=== PATIENT | female | born 1960 | race Two or more races ===

== ENCOUNTER → 2016-11-15 | Outpatient (CLI) | payer BC ==
--- NOTE | 2016-11-15 15:05 | RADRPT ---
PROCEDURE: XR Knees. CLINICAL INDICATION: Knee pain TECHNIQUE: Three views of the bilateral knees are available for review. COMPARISON: None available FINDINGS: Right knee: There is severe narrowing of the medial and lateral femorotibial compartments noting glez bchondral sclerosis and marginal osteophyte formation. Moderate to severe narrowing is seen at the patellofemoral compartment. The osseous structures appear demineralized. Small right knee joint eff usion. Left knee: Moderate narrowing is seen at the medial and lateral femorotibial compartments and mild n arrowing at the patellofemoral compartment noting subchondral sclerosis and marginal osteophyte form ation. A moderate sized joint effusion is present. There is mild right lateral patellar tilt/subluxation. The left patella is located. IMPRESSION: 1. Tricompartmental right knee arthrosis noting severe narrowing of the medial and lateral femoroti bial compartments. 2. Tricompartmental left knee arthrosis most pronounced at the medial and lateral femorotibial comp artments with moderate narrowing. 3. Decreased bone mineral density without radiographic evidence for fracture. 4. Bilateral knee joint effusions. RPTAT: HH .Price Szymanski MD, Date Time Electronically viewed and signed by .Price Szymanski MD, MD on 11/15/2016 15:05 .d/
--- NOTE | 2016-11-15 18:05 | RADRPT ---
PROCEDURE: XR Pelvis. CLINICAL INDICATION: Pelvic pain. TECHNIQUE: Single AP view of the pelvis. COMPARISON: No prior studies are available for comparison. FINDINGS: There is no fracture or dislocation. There is no lytic or blastic lesion. There are osteophytes arising from the joint margins. The sacroiliac joints are grossly unremarkable. There is no radiopaque foreign body. IMPRESSION: 1. Mild degenerative changes of the hips. 2. Otherwise unremarkable frontal view of the pelvis. RPTAT: QQ .Obed Espinoza MD, MD Date Time Electronically viewed and signed by .Obed Espinoza MD, MD on 11/15/2016 18:05 .R/
--- NOTE | 2016-11-28 06:29 | HKNOTE ---
DATE OF SERVICE: 11/15/2016 REFERRING PHYSICIAN: Dr. Walters in [place] (has now relocated to [place]). MAIN COMPLAINT: Pain in the right knee. HISTORY OF MAIN COMPLAINT: The patient is a 56-year-old male who complains of pain in his right knee. He has had the pain for about 2 years without history of injury. The pain started off mild and has gradually become severe. The patient complains the pain in his knee is localized mainly to the medial and posterior aspect of the knee, and pain is aggravated by walking, weightbearing, and stair climbing. The patient does get rest pain and night pain. He is not taking any medications, other than [id number] anti-inflammatory medications. He has not had any problems in his lower back. On a flat level surface, he can walk no more than perhaps a quarter of a block without stopping. He has pain with every step, and he has to walk extremely slowly. He limps all the time. He does not have a shoe lift. The patient had an injection of Euflexxa into both knees about 2 months ago, which did not give him any relief at all. PAST MEDICAL HISTORY: Previous orthopedic operations: None. Prior cortisone intake: 1 injection into 1 of his knee some years ago. ALCOHOL INTAKE: None. OTHER JOINT PROBLEMS: None. BLOOD TESTS FOR ARTHRITIS: Yes (does not know the result). PRIOR INJURIES TO HIPS OR KNEES: None. WORK STATUS: The patient is not working. PAST SURGICAL HISTORY: Negative. PAST SURGICAL HISTORY: Negative. DRUG ALLERGIES: Negative. MEDICATIONS: The patient was on prednisone for 3 months 18 months ago (? for what). The patient has no other medications. FAMILY HISTORY: Father age 87, alive and well. Mother at unstated age of cancer. SYSTEMS REVIEW: Ankle swelling, otherwise entirely negative. HABITS: The patient does not smoke nor does he drink alcoholic beverages. MEMS ENGINEER: Dr. Krysten West. PHYSICAL EXAMINATION: GENERAL: The patient is a fit-looking 56-year-old female. She is quite markedly underweight. VITALS: Height 5, feet 2 inches, weight 100 pounds. Blood pressure 115/70, temperature 98.1. GAIT: The patient walks with a walking aid. She can hardly take a step or 2. It is extremely difficult to get onto the examination couch. HIP EXAMINATION: Both hips have a full range of motion without pain. EXAMINATION OF THE RIGHT KNEE: Full extension lacks 30 degrees, flexion is to 100 degrees. Severe pain on attempting to put the knee through range of motion, but especially at the limits of motion. One plus effusion. Ligaments are intact. No external sign of infection or inflammation. EXAMINATION OF THE LEFT KNEE: Extension lacks 5 degrees. Flexion is to 105 degrees. Severe pain at the limits of motion. IMAGING: Plain x-rays of her right knee obtained today show exceedingly severe rheumatoid type of arthritis of the knee without secondary degenerative changes as is commonly seen in osteoarthritis. DIAGNOSES: 1. Rheumatoid arthritis. 2. Severe rheumatoid destruction of the right knee. 3. Rheumatoid arthritis of the left knee. MANAGEMENT: The patient is advised that she most certainly will need to have a right knee replacement in the near future and thereafter a left knee replacement. The operation of knee replacement was discussed with her and her in a fair amount of detail. Postoperative complications with them for increased risk of rheumatoid arthritis in patients with arthritis were discussed. Other postoperative possible complications were discussed. The hospital course was discussed. Post hospitalization course was discussed. They were given a copy of my booklet on knee arthritis and knee replacement surgery. She was given a prescription for tramadol 50 mg p.o. t.i.d. p.r.n. The patient will call if and when she is ready to consider proceeding with surgery. She needs a full medical evaluation prior to proceeding. Dictated By: Neo Andrade MD /dolores/marleen /Document#: [id number]
== END | disposition home or self-care (01) ==
LOC: HKI 14:16
DX: M06.862 Other specified rheumatoid arthritis, left knee (principal); M06.861 Other specified rheumatoid arthritis, right knee; M23.8X1 Other internal derangements of right knee
CPT/HCPCS: 72170; 73562; G0463

== ENCOUNTER 2016-12-06 06:01 | Inpatient (IN) | payer BC ==
--- NOTE | 2016-12-03 10:32 | PREOPHP ---
DATE OF ADMISSION: 12/06/2016 DATE OF : [birth year]. DATE OF SURGERY: The patient is have surgery with Dr. Neo Andrade on 12/06/2016. CONSULTATION REQUESTED BY: Neo Andrade for medical evaluation and clearance of a 56-year-old woman about to undergo surgery. Thank you, Dr. Andrade, for allowing us to participate in the care of this patient. HISTORY OF PRESENT ILLNESS: Jarred Zacarias is a 56-year-old woman with history of rheumatoid arthritis and degenerative joint disease, is currently being admitted for a total knee replacement on the right side. The patient has arthritis in both knees, however, the right is significantly worse than the left at this particular point in time. PAST MEDICAL HISTORY: Patient has had no medical hospitalizations. She has not had any prior surgery. She has not broken any bones. The patient, however, is wheelchair-bound at this particular point in time, due to the arthritis in both of her knees. ALLERGIES: SHE IS NOT ALLERGIC TO ANY MEDICATIONS. HOWEVER, IS ALLERGIC TO SHRIMP. MEDICATIONS: At this point denied any chronic medications other than symptomatic periodic medications. SOCIAL HISTORY: The patient is , has no children. She does not smoke or drink alcoholic beverages. Nor does she drink coffee, and usually has no difficulty sleeping at night other than that related to her pain. FAMILY HISTORY: Mother age 46 of lung cancer, and was not a smoker. Father at 87 has Parkinson disease. One sister of a brain aneurysm. One brother is alive and well. There is family history of diabetes and cancer and strokes. No heart or blood pressure to her knowledge. REVIEW OF SYSTEMS: HEENT: Denies any headaches. CARDIORESPIRATORY: Denies any chest pain or shortness of breath. GASTROINTESTINAL: No melena or hematemesis. GENITOURINARY: No urgency frequency. GYNECOLOGICAL: Post menopause to date. MUSCULOSKELETAL: Positive for right knee pain. NEUROPSYCHIATRIC: Unremarkable general health as above. PHYSICAL EXAMINATION: VITAL SIGNS: Patient's blood pressure was 118/60, pulse was 84 and regular, respirations were 18, temperature 98.1. Height 5 feet, 2 inches. Weight 95 pounds. GENERAL APPEARANCE: Patient was noted to be a well-developed, well-nourished female, alert, cooperative, in no apparent acute distress. Oriented to time, place, and person. HEENT: Head was atraumatic. The eyes pupils were equal, reactive to light and accommodation. Fundi were benign. Tympanic membranes were unremarkable. Nose was negative. Mouth was unremarkable. Fair oral hygiene was present. NECK: Supple without any rigidity. Trachea was midline. Thyroid was within normal limits. Neck veins were flat. Carotid pulses were equal. No bruits were heard. BACK: Back exam was unremarkable. CHEST: Symmetrical. BREASTS: Breast and axillary exam did not reveal any obvious masses, however, the breasts were not fully examined. LUNGS: Clear to percussion auscultation. HEART: The PMI is 5th intercostal space at the midclavicular line. Regular sinus rhythm was noted. No significant murmurs, rubs, gallops being elicited. ABDOMEN: Was soft. Good bowel sounds were noted. No significant organomegaly masses or tenderness. GENITALIA: Exam per machine feeder raw stock. . PELVO- RECTAL EXAM: Per machine feeder raw stock up to date. EXTREMITIES: The extremities did not reveal any clubbing, edema, or cyanosis. There was degenerative changes both hands, as well as both knees compatible with her history of rheumatoid arthritis. Peripheral pulses were physiologic. SKIN: Moist and warm without any eruptions. No gross lymphadenopathy was noted. NEUROLOGIC: Grossly intact. DIAGNOSTIC STUDIES: Review of laboratory and other data revealed the following: Patient's chemistry panel revealed normal electrolytes, a glucose. Creatinine was normal. BUN was minimally elevated at 23 probably secondary to dehydration. Liver function tests were normal. Iron was low at 14. Hemoglobin was 9.8, hematocrit 32, white count 6.8. UA, PT, and PTT were normal. Patient's EKG was normal, as was her chest x- ray. IMPRESSION: 1. Degenerative joint disease, right knee greater than left. 2. Rheumatoid arthritis with multiple joint involvement. 3. Menopausal syndrome. 4. Anemia of chronic disease. 5. Stable health. DISCUSSION: I see no contraindications for this patient undergoing current proposed surgery under desired form of anesthesia. I feel she is a suitable candidate at this particular point in time, and we will be more than happy to follow her along with you during her stay at [facility]. Will advise patient to start iron supplementation prior to her surgery and continued throughout the interim and postop period. Thank you again, Dr. Andrade, for allowing me to participating care of this patient. Dictated By: Jose Higgins MD /dolores/renetta /Document#: [id number] MTDD
[2016-12-05 13:04] VITALS: BMI 17.6
[~2016-12-06] VITALS: Ht 157.5 cm; Wt 45.8 kg
[2016-12-06] VITALS (21 sets, daily range): BP systolic 102–126; BP diastolic 58–75; PULSE 87–120; RESP 15–41; Ht 157.5 cm; Wt 45.8 kg
[2016-12-06] MEDS ORDERED: VANCOMYCIN 1 GM (PMX) 250 ML IVPB ONE (06:08)
[2016-12-06] MEDS ORDERED: LACTATED RINGER'S 1,000 ML IV* SCH (06:08)
[2016-12-06] MEDS ORDERED: LIDOCAINE 2% (SDV) 5 ML INJ ONE (06:25)
[2016-12-06] MEDS ORDERED: GLYCOPYRROLATE 0.4 MG INJ ONE (06:25)
[2016-12-06] MEDS ORDERED: ROCURONIUM 50 MG INJ ONE (06:25)
[2016-12-06] MEDS ORDERED: NEOSTIGMINE 3 MG/3 ML SYRINGE ONE (06:25)
[2016-12-06] MEDS ORDERED: PROPOFOL 20 ML ONE (06:25)
[2016-12-06] MEDS ORDERED: MIDAZOLAM 1 MG/ML 2 ML INJ ONE (06:26)
[2016-12-06] MEDS ORDERED: FENTAnyl 50 MCG/ML VIAL ONE ×2 (06:26→12:16)
[2016-12-06] MEDS ORDERED: LABETALOL HCL 20MG INJ IV PRN ×2 (06:30)
[2016-12-06] MEDS ORDERED: DIPHENHYDRAMINE 50 MG INJ IV PRN ×2 (06:30)
[2016-12-06] MEDS ORDERED: morphine (1 MG/ML) 10ML SYRINGE IV PRN ×6 (06:30)
[2016-12-06] MEDS ORDERED: DEXAMETHASONE 4 MG/ML 1 ML INJ IV ONE (06:30)
[2016-12-06] MEDS ORDERED: TRANEXAMIC ACID 860 MG in SOD CHLORIDE 0.9% 100 ML IVPB ONE (06:30)
[2016-12-06] MEDS ORDERED: EPHEDrine SULFATE 50 MG/5 ML SYG IV PRN ×2 (06:30)
[2016-12-06] MEDS ORDERED: ONDANSETRON 4 MG INJ IV ONE (06:30)
[2016-12-06] MEDS ORDERED: ACETAMINOPHEN 1000MG/100ML IV 100 ML IVPB ONE (06:30)
[2016-12-06] MEDS ORDERED: MEPERIDINE 25 MG INJ IV PRN ×2 (06:30)
[2016-12-06] MEDS ORDERED: FENTAnyl 50 MCG/ML VIAL IV PRN ×4 (06:30)
[2016-12-06] MEDS ORDERED: oxyCODONE (CR) 10 MG TAB [oxyCONTIN] PO ONE (06:30)
[2016-12-06] MEDS ORDERED: ONDANSETRON 4 MG INJ IV PRN ×2 (06:30)
[2016-12-06] MEDS ORDERED: MIDAZOLAM 1 MG/ML 2 ML INJ IV PRN ×2 (06:30)
[2016-12-06] MEDS: TRANEXAMIC ACID IRR SCH ×4 (06:30→08:49)
[2016-12-06] MEDS ORDERED: OXYCODONE/ACETAMINOPHEN (5/325) TAB PO PRN ×4 (06:30)
[2016-12-06] MEDS ORDERED: LANSOPRAZOLE 30 MG CAP PO ONE (06:30)
[2016-12-06] MEDS ORDERED: hydrALAzine 20 MG INJ IV PRN ×2 (06:30)
[2016-12-06] MEDS: SOD CHLORIDE 0.9% IRR SCH ×4 (06:30→08:49)
[2016-12-06] MEDS ORDERED: ATROPINE 1 MG/10 ML SYRINGE IV PRN ×2 (06:30)
[2016-12-06] MEDS ORDERED: CELECOXIB 200 MG CAP PO ONE (06:30)
[2016-12-06] MEDS ORDERED: HYDROmorphONE (0.2 MG/ML) 10ML SYG IV PRN ×6 (06:30)
[2016-12-06] MEDS ORDERED: DEXAMETHASONE 4 MG/ML 1 ML INJ ONE (06:33)
[2016-12-06] MEDS ORDERED: SUGAMMADEX SODIUM 200 MG/2 ML VIAL IV ONE (06:33)
[2016-12-06] MEDS ORDERED: ONDANSETRON 4 MG INJ ONE (06:34)
--- NOTE | 2016-12-06 06:38 | HPN ---
Date/Time of Note Date/Time of Note DATE: 12/06/16 TIME: 06:37 Interval H&P Admission Note Pt. seen H&P reviewed: No system changes ROSALVA PENA PA-C Dec 06, 2016 06:38
[2016-12-06] MEDS ORDERED: LIDOCAINE 2%/EPI MPF (SDV) 20 ML VIAL ONE (07:00)
[2016-12-06] MEDS ORDERED: POLYMYXIN B 500000 UNIT INJ ONE (07:00)
[2016-12-06] MEDS ORDERED: PHENYLephrine (100 MCG/ML) 5ML SYG ONE (07:00)
[2016-12-06] MEDS ORDERED: TOBRAMYCIN 1.2 GM POWDER ONE ×2 (07:01→11:17)
[2016-12-06] MEDS ORDERED: BUPIVACAINE 0.5%/EPI (SDV) 10 ML INJ ONE (07:01)
[2016-12-06] MEDS ORDERED: ROPIVACAINE 0.2% 100 ML ONE (07:01)
[2016-12-06] MEDS ORDERED: METHYLENE BLUE 1% 10 ML INJ ONE (07:01)
[2016-12-06] MEDS ORDERED: BUPIVACAINE 0.25%/EPI (SDV) 30 ML INJ ONE (07:07)
[2016-12-06] MEDS ORDERED: ROPIVACAINE 0.2% 60 ML, morphine SULFATE (PF) 4 MG, CLONIDINE 100 MCG, KETOROLAC 30 MG,... INJ SCH ×6 (07:30)
[2016-12-06] MEDS ORDERED: HIP PAIN COCKTAIL VANCO INJ SCH ×7 (07:30)
[2016-12-06] MEDS ORDERED: LABETALOL HCL 20MG INJ ONE (08:13)
[2016-12-06] MEDS ORDERED: hydrALAzine 20 MG INJ ONE (08:44)
[2016-12-06] MEDS ORDERED: ROPIVACAINE 0.2% 100ML BAG INJ ONE (08:51)
[2016-12-06] MEDS ORDERED: BACITRACIN 50000 UNITS INJ IRR ONE (08:52)
[2016-12-06] MEDS ORDERED: ASPIRIN (EC) 325 MG TAB PO ONE (13:30)
[2016-12-06] MEDS ORDERED: ZOLPIDEM 5 MG TAB PO PRN (13:30)
[2016-12-06] MEDS ORDERED: MEPERIDINE 10 MG/ML 30 ML PCA IV PRN (13:30)
[2016-12-06] MEDS ORDERED: NA PHOSPHATE/BIPHOS 133 ML ENEMA PR PRN (13:30)
[2016-12-06] MEDS ORDERED: DIPHENHYDRAMINE 50 MG INJ IM PRN (13:30)
[2016-12-06] MEDS ORDERED: SENNA/DOCUSATE NA (8.6MG/50MG) TAB PO PRN (13:30)
[2016-12-06] MEDS ORDERED: DOCUSATE SODIUM 100 MG CAP PO ONE (13:30)
[2016-12-06] MEDS ORDERED: BISACODYL 10 MG SUPP PR PRN (13:30)
[2016-12-06] MEDS ORDERED: oxyCODONE 5 MG TAB PO PRN (13:30)
[2016-12-06] MEDS ORDERED: MAGNESIUM HYDROXIDE 30ML CUP PO PRN (13:30)
[2016-12-06] MEDS ORDERED: NALOXONE (0.4 MG/ML) INJ IV PRN (13:30)
[2016-12-06] MEDS ORDERED: HYDROmorphONE 0.2 MG/ML PCA IV PRN (13:30)
[2016-12-06] MEDS ORDERED: BETHANECHOL 25 MG TAB PO PRN (13:30)
[2016-12-06] MEDS ORDERED: COUMADIN NOTE XX SCH (13:30)
--- NOTE | 2016-12-06 13:38 | PDOCDIS ---
Discharge Instructions DIAGNOSIS Discharge Diagnosis Status right total knee arthroplasty CONDITION Patient Condition: Stable HOME CARE INSTRUCTIONS: Diet Instructions: Regular ACTIVITY: Activity Restrictions: Slowly Increase Activity Rest between Activity Avoid heavy lifting No Sexual Activity Do not Drive Do not operate Machinery Do not operate Power Tool Avoid Heavy Housework Keep Limb Elevated Weight Bearing (As tolerated with front wheeled walker. Use knee immobilizer while weightbearing for the first 6 weeks.) Bathing Restrictions: Shower (Using Tegaderm with pad. Apply prior to shower. Make sure area is dry and remove. Repeat the steps each day until joie are removed around 10 days postoperatively.) FOLLOW UP/APPOINTMENTS Follow-up Plan 12/27/2016 at 2:15 PM ROSALVA PENA PA-C Dec 06, 2016 13:38
--- NOTE | 2016-12-06 13:54 | RADRPT ---
PROCEDURE: RIGHT knee x-ray CLINICAL INDICATION: RT KNEE REPL. RM 5 O.R. TECHNIQUE: AP and lateral views of the knee were obtained. COMPARISON: Plain radiographs of the knees from 11/15/2016 FINDINGS: No acute fracture or dislocation is seen. There is decreased osseous mineralization. There has been interval placement of a total right knee prosthesis in near anatomic alignment withou t evidence of hardware loosening likely postoperative changes are noted including surrounding an int ra-articular emphysema. IMPRESSION: Interval placement of a total right knee prosthesis in near anatomic alignment with likely postopera tive changes. Decreased osseous mineralization. RPTAT: EE Physician Pebbles Date Time Electronically viewed and signed by Physician Pebbles on 12/06/2016 13:53 RA/
[2016-12-06] MEDS ORDERED: SOD CHLORIDE 0.9% IVPB ONE ×2 (14:00→17:00)
[2016-12-06] MEDS ORDERED: TRANEXAMIC ACID IVPB ONE ×2 (14:00→17:00)
[2016-12-06] MEDS: ONDANSETRON 4 MG INJ IV SCH ×2 (14:21→19:30)
[2016-12-06] MEDS: CEFAZOLIN 1 GM/50 ML (PMX) 50 ML IVPB SCH ×2 (14:21→21:58)
[2016-12-06 14:24] LABS: HEMATOCRIT 26.3 % (37.0-47.0); HEMOGLOBIN 8.1 g/dl (12.0-16.0)
--- NOTE | 2016-12-06 14:27 | RADRPT ---
PROCEDURE: XR Knee. CLINICAL INDICATION: Postop TECHNIQUE: AP and lateral views of the right knee are available for review. COMPARISON: None available FINDINGS: A cemented right total knee arthroplasty is present in near anatomic alignment without acute radiogr aphic abnormality. Recent surgical changes seen in the soft tissues. IMPRESSION: 1. Total knee arthroplasty in near anatomic alignment without acute radiographic abnormality RPTAT: EE .Price Szymanski MD, MD Date Time Electronically viewed and signed by .Price Szymanski MD, MD on 12/06/2016 14:26 .d/
--- NOTE | 2016-12-06 15:50 | CONS ---
Date/Time of Note Date/Time of Note DATE: 12/06/16 TIME: 15:43 Consult Date/Type/Reason Admit Date/Time Dec 06, 2016 at 06:01 Initial Consult Date 11/30/2016 Type of Consultation: internal medicine Reason for Consultation pre operative evaluation and clearance Ordering Provider: AMAYA DUNN MD Subjective alert post op texting on cell phone quite alert no complaints Objective Vital Signs Date Time Temp Pulse Resp B/P Pulse Ox O2 Delivery O2 Flow Rate FiO2 12/06/16 15:03 90 40 103/62 97 Room Air 12/06/16 13:53 98.3 Exam vss heent negative lungs clear heart regular rhythn abdomen soft Results/Medications Result Diagram: 12/06/16 1410 Results 24 hrs Laboratory Tests Test 12/06/16 14:10 Hemoglobin 8.1 L Hematocrit 26.3 L Medications Current Medications Ropivacaine 60 ml/ Morphine Sulfate 4 mg/Clonidine 100 mcg/Ketorolac Tromethamine 30 mg/Vancomycin HCl 500 mg/Sodium Chloride 50 ml INTRA-OP INJ ; Start 12/06/16 at 07:30; Stop 12/09/16 at 07:29 Dextrose/Lactated Ringer's (D5-Lr) 1,000 ml @ 80 mls/hr [id number] IV ; Start at 13:30 Hydromorphone HCl (Dilaudid CLINICAL PROGRAM CONSULTANT) Q4PCA PRN IV SEVERE PAIN 8-10; Start at 13:30; Stop 12/07/16 at 13:29 Meperidine HCl (Demerol CLINICAL PROGRAM CONSULTANT) Q4PCA PRN IV SEVERE PAIN 8-10; Start 12/06/16 at 13:30; Stop 12/07/16 at 13:29 Oxycodone HCl (Roxicodone) 20 mg Q3H PRN PO PAIN LEVEL 8-10; Start 12/06/16 at 13:30 Oxycodone HCl (Roxicodone) 10 mg Q3H PRN PO PAIN LEVEL 4-7; Start 12/06/16 at 13:30 Oxycodone HCl 5 mg 5 mg Q3H PRN PO PAIN LEVEL 1-3; Start 12/06/16 at 13:30 Acetaminophen (Ofirmev 1000mg/ 100ml Iv) 100 ml @ 400 mls/hr Q8H IVPB ; Start 12/06/16 at 13:30; Stop 12/08/16 at 05:44 Zolpidem Tartrate (Ambien) 5 mg HS PRN PO INSOMNIA; Start 12/06/16 at 13:30 Ondansetron HCl 4 mg 4 mg Q6H IV Last administered on 12/06/16t 14:21; Admin Dose 4 MG; Start 12/06/16 at 13:30; Stop 12/07/16 at 07:31 Cefazolin Sodium (Ancef 1 Gm/50 ml (Pmx)) 50 ml @ 100 mls/hr Q8H IVPB Last administered on 12/06/16 14:21; Admin Dose 100 MLS/HR; Start 12/06/16 at 13:30 ; Stop 12/07/16 at 05:59 Miscellaneous Information (Note) NOTE XX ; Start 12/06/16 at 13:30 Aspirin (Ecotrin) 325 mg BID PO ; Start 12/07/16 at 09:00 Celecoxib (Celebrex) 200 mg BID PO ; Start 12/07/16 at 09:00 Dexamethasone (Decadron) 4 mg DAILY@07 IV ; Start 12/07/16 at 07:00; Stop at 06:59 Pantoprazole (Protonix Tab) 40 mg DAILY@06 PO ; Start 12/08/16 at 06:00 Docusate Sodium/ Ferrous Fumarate (Puma-Sequels) 1 tab BID PO ; Start 12/07/16 at 09:00 Docusate Sodium (Colace) 200 mg BID PO ; Start 12/07/16 at 09:00; Stop 12/10/16 at 08:59 Simethicone (Mylicon) 80 mg TID PRN PO DISTENSION/GAS/BLOATING; Start 12/06/16 at 13:30 Senna/Docusate Sodium (Senokot-S) 2 tab BID PRN PO CONSTIPATION; Start at 13:30 Magnesium Hydroxide (Milk Of Mag) 30 ml HS PRN PO CONSTIPATION; Start 12/06/16 at 13:30 Bisacodyl (Dulcolax Supp) 10 mg DAILY PRN [place] CONSTIPATION; Start 12/06/16 at 13 :30 Sodium Biphosphate/ Sodium Phosphate (Fleet Enema) 133 ml DAILY PRN [place] CONSTIPATION; Start 12/06/16 at 13:30 Diphenhydramine HCl (Benadryl) 25 mg Q4H PRN IM ITCHING OR RASH; Start at 13:30 Ketorolac Tromethamine (Toradol) 15 mg DAILY@06 PRN INJ ADMINSTER BY SURGEON ONLY; Start 12/07/16 at 06:00; Stop 12/11/16 at 05:59 Bupivacaine HCl/ Epinephrine Bitart (Marcaine 0.25%/ Epi (Sdv) 30 ml) 20 ml DAILY@06 PRN INJ ADMINSTER BY SURGEON ONLY; Start 12/07/16 at 06:00; Stop 12/11 at 05:59 Naloxone HCl 0.2 mg 0.2 mg Q2M PRN IV DECREASED REPIRATORY RATE; Start 12/06/16 at 13:30 Tranexamic Acid/ Sodium Chloride (Tranexamic Acid/ NS) 104.6 ml @ 200 mls/hr ONCE@17 ONCE IVPB ; Start 12/06/16 at 17:00; Stop 12/06/16 at 17:31 Assessment/Plan Chief Complaint/Hosp Course post op total knee replacement right knee stable post op Problems: Additional Assessment/Plan will follow will watch anemia and general medical condition thank you QUINTEN Tang MD Dec 06, 2016 15:50
[2016-12-06] MEDS: DEXTROSE 5%-LR 1,000 ML IV SCH (16:02)
[2016-12-06] MEDS: ACETAMINOPHEN 1000MG/100ML IV 100 ML IVPB SCH ×2 (17:19→21:04)
[2016-12-06] MEDS: FERROUS SULFATE (EC) 325 MG TAB PO SCH (21:00)
[2016-12-07] MEDS: ONDANSETRON 4 MG INJ IV SCH ×2 (01:30→06:39)
[2016-12-07] MEDS: DEXTROSE 5%-LR 1,000 ML IV SCH ×2 (02:00→14:30)
[2016-12-07 02:15] VITALS: BP 100/61; RESP 18
[2016-12-07] MEDS: ACETAMINOPHEN 1000MG/100ML IV 100 ML IVPB SCH ×3 (04:48→20:45)
[2016-12-07 05:13] LABS: ABNORMAL IP MESSAGE 1; BASOPHILS % 0.1 % (0.0-2.0); EOSINOPHILS % 0.3 % (0.0-7.0); HEMATOCRIT 20.3 % (37.0-47.0); LYMPHOCYTES # 2.5 10^3/ul (0.8-2.9); LYMPHOCYTES % 27.6 % (15.0-51.0); MEAN CORPUSCULAR HEMOGLOBIN 23.5 pg (29.0-33.0); MEAN CORPUSCULAR HGB CONC 30.5 g/dl (32.0-37.0); MEAN CORPUSCULAR VOLUME 76.9 fl (82.0-101.0); MEAN PLATELET VOLUME 9.2 fl (7.4-10.4); MONOCYTE # 0.8 10^3/ul (0.3-0.9); MONOCYTES % 8.3 % (0.0-11.0); NEUTROPHILS % 63.3 % (39.0-77.0); PLATELET COUNT 292 10^3/UL (140-415); RED BLOOD COUNT 2.64 10^6/ul (4.20-5.40); RED CELL DISTRIBUTION WIDTH 17.2 % (11.5-14.5); WHITE BLOOD COUNT 9.2 10^3/ul (4.8-10.8)
[2016-12-07] MEDS: CEFAZOLIN 1 GM/50 ML (PMX) 50 ML IVPB SCH ×3 (05:34→21:24)
[2016-12-07 05:53] LABS: POSITIVE DIFF @See below
[2016-12-07 05:54] LABS: HEMOGLOBIN 6.2 g/dl (12.0-16.0)
[2016-12-07] MEDS ORDERED: BUPIVACAINE 0.25%/EPI (SDV) 30 ML INJ INJ PRN (06:00)
[2016-12-07] MEDS ORDERED: KETOROLAC 15 MG INJ INJ PRN (06:00)
[2016-12-07] MEDS: DEXAMETHASONE 4 MG/ML 1 ML INJ IV SCH (06:39)
--- NOTE | 2016-12-07 07:31 | CONS ---
Date/Time of Note Date/Time of Note DATE: 12/07/16 TIME: 07:27 Consult Date/Type/Reason Admit Date/Time Dec 06, 2016 at 06:01 Initial Consult Date 11/30/2016 Type of Consultation: internal medicine Reason for Consultation post op f/u patient with RA and anemia Ordering Provider: AMAYA DUNN MD Subjective alert no complaints pale appearing had a good night Objective Vital Signs Date Time Temp Pulse Resp B/P Pulse Ox O2 Delivery O2 Flow Rate FiO2 12/07/16 02:15 98.1 70 18 100/61 98 12/06/16 17:00 Room Air Intake and Output 12/06/16 12/06/16 12/07/16 15:00 23:00 07:00 Intake Total 2900 ml 554.6 ml 1400 ml Output Total 1020 ml 670 ml 510 ml Balance 1880 ml -115.4 ml 890 ml Exam vss heent neg. lungs clear heart regular rhythm abd.softr Results/Medications Result Diagram: 12/07/16 0440 Results 24 hrs Laboratory Tests Test 12/06/16 14:10 12/07/16 04:40 Hemoglobin 8.1 L 6.2 #*L Hematocrit 26.3 L 20.3 #L White Blood Count 9.2 Red Blood Count 2.64 L Mean Corpuscular Volume 76.9 L Mean Corpuscular Hemoglobin 23.5 L Mean Corpuscular Hemoglobin Concent 30.5 L Red Cell Distribution Width 17.2 H Platelet Count 292 Mean Platelet Volume 9.2 Neutrophils % 63.3 Lymphocytes % 27.6 Monocytes % 8.3 Eosinophils % 0.3 Basophils % 0.1 Nucleated Red Blood Cells % 0.0 Neutrophils # (Manual) 6 Lymphocytes # 2.5 Monocytes # 0.8 Eosinophils # 0.0 Basophils # 0.0 Nucleated Red Blood Cells # 0.0 Medications Current Medications Dextrose/Lactated Ringer's (D5-Lr) 1,000 ml @ 80 mls/hr [id number] IV Last administered on 12/06/16t 16:02; Admin Dose 80 MLS/HR; Start 12/06/16 at 13:30 Hydromorphone HCl (Dilaudid HERB DIGGER) Q4PCA PRN IV SEVERE PAIN 8-10; Start at 13:30; Stop 12/07/16 at 13:29 Meperidine HCl (Demerol HERB DIGGER) Q4PCA PRN IV SEVERE PAIN 8-10; Start 12/06/16 at 13:30; Stop 12/07/16 at 13:29 Oxycodone HCl (Roxicodone) 20 mg Q3H PRN PO PAIN LEVEL 8-10; Start 12/06/16 at 13:30 Oxycodone HCl (Roxicodone) 10 mg Q3H PRN PO PAIN LEVEL 4-7; Start 12/06/16 at 13:30 Oxycodone HCl 5 mg 5 mg Q3H PRN PO PAIN LEVEL 1-3; Start 12/06/16 at 13:30 Acetaminophen (Ofirmev 1000mg/ 100ml Iv) 100 ml @ 400 mls/hr Q8H IVPB Last administered on 12/07/16 04:48; Admin Dose 400 MLS/HR; Start 12/06/16 at 13:30 ; Stop 12/08/16 at 05:44 Zolpidem Tartrate (Ambien) 5 mg HS PRN PO INSOMNIA; Start 12/06/16 at 13:30 Ondansetron HCl (Zofran Inj) 4 mg Q6H IV Last administered on 12/06/16 14:21; Admin Dose 4 MG; Start 12/06/16 at 13:30; Stop 12/07/16 at 07:31 Miscellaneous Information (Note) NOTE XX ; Start 12/06/16 at 13:30 Aspirin (Ecotrin) 325 mg BID PO ; Start 12/07/16 at 09:00 Celecoxib (Celebrex) 200 mg BID PO ; Start 12/07/16 at 09:00 Dexamethasone (Decadron) 4 mg DAILY@07 IV Last administered on 12/07/16 06:39 ; Admin Dose 4 MG; Start 12/07/16 at 07:00; Stop 12/10/16 at 06:59 Pantoprazole (Protonix Tab) 40 mg DAILY@06 PO ; Start 12/08/16 at 06:00 Docusate Sodium (Colace) 200 mg BID PO ; Start 12/07/16 at 09:00; Stop 12/10/16 at 08:59 Simethicone (Mylicon) 80 mg TID PRN PO DISTENSION/GAS/BLOATING; Start 12/06/16 at 13:30 Senna/Docusate Sodium (Senokot-S) 2 tab BID PRN PO CONSTIPATION; Start at 13:30 Magnesium Hydroxide (Milk Of Mag) 30 ml HS PRN PO CONSTIPATION; Start 12/06/16 at 13:30 Bisacodyl (Dulcolax Supp) 10 mg DAILY PRN [place] CONSTIPATION; Start 12/06/16 at 13 :30 Sodium Biphosphate/ Sodium Phosphate (Fleet Enema) 133 ml DAILY PRN [place] CONSTIPATION; Start 12/06/16 at 13:30 Diphenhydramine HCl (Benadryl) 25 mg Q4H PRN IM ITCHING OR RASH; Start at 13:30 Ketorolac Tromethamine (Toradol) 15 mg DAILY@06 PRN INJ ADMINSTER BY SURGEON ONLY; Start 12/07/16 at 06:00; Stop 12/11/16 at 05:59 Bupivacaine HCl/ Epinephrine Bitart (Marcaine 0.25%/ Epi (Sdv) 30 ml) 20 ml DAILY@06 PRN INJ ADMINSTER BY SURGEON ONLY; Start 12/07/16 at 06:00; Stop 12/11 at 05:59 Naloxone HCl (Narcan) 0.2 mg Q2M PRN IV DECREASED REPIRATORY RATE; Start at 13:30 Ferrous Sulfate (Ferrous Sulfate (Ec)) 325 mg TID PO ; Start 12/06/16 at 21:00 Assessment/Plan Chief Complaint/Hosp Course post op total knee replacement right knee stable post op Problems: Additional Assessment/Plan tranfuse 2 units packed cells recheck h&h after 2nd unit transfused QUINTEN PEDROZA MD Dec 07, 2016 07:31
--- NOTE | 2016-12-07 07:53 | PN ---
Date/Time of Note Date/Time of Note DATE: 12/07/16 TIME: 07:48 Assessment/Plan VTE Prophylaxis VTE Prophylaxis Intervention: ambulation, SCD's, other (ASA 325 BID daily ) Lines/Catheters IV Catheter Type (from Nrsg): Peripheral IV Witt in Place (from Nrsg): Yes Assessment/Plan Assessment/Plan -Hemovac retained until POD#2 -Pain Cocktail Given -Pain Meds as needed -Dress change performed today -OOB with PT -ASA/SCDs for DVT Prophylaxis -Continue monitoring with Internal Medicine -Patient Stable -Low hgb so 2 units or PRBCs given today. Disc. case with weighmaster and Dr. Higgins will continue to monitor. Subjective 24 Hr Interval Summary 56 y/o female POD#1 R TKA. Denies any significant pain to the right knee. No PT yesterday as she had significant fatigue. No CP, SOB or calf pain. Pain Control: well controlled Exam/Review of Systems Vital Signs Vitals Vital Signs Date Time Temp Pulse Resp B/P Pulse Ox O2 Delivery O2 Flow Rate FiO2 12/07/16 02:15 98.1 70 18 100/61 98 12/06/16 17:00 Room Air Intake and Output 12/06/16 12/06/16 12/07/16 15:00 23:00 07:00 Intake Total 2900 ml 554.6 ml 1400 ml Output Total 1020 ml 670 ml 510 ml Balance 1880 ml -115.4 ml 890 ml Exam Free Text/Dictation -Hemovac: Intact 180cc output -Pain Cocktail Drains: Intact -Incision: Clean, Dry and Intact without any redness or drainage -5/5 Tibialis Anterior, EHL Gastrocnemius/Soleus and Peroneals -Normal Sensation -Palpable DP/PT, Capillary Refill <2 secs -No Distal Edema -Negative Pasquale Sign/No calf pain -Toes Freely Movable Constitutional: alert, oriented, well developed Results Result Diagram: 12/07/16 0440 ROSALVA PENA PA-C Dec 07, 2016 07:53
[2016-12-07 07:55] LABS: ADD UMIC NO; UR ASCORBIC ACID 40 mg/dL (NEGATIVE); UR BACTERIA FEW /HPF (NONE SEEN); UR BILIRUBIN (Dip) NEGATIVE (NEGATIVE); UR BLOOD (Dip) NEGATIVE (NEGATIVE); UR BUDDING YEAST FEW /HPF (NONE SEEN); UR CLARITY SLIGHTLY CLOUDY (CLEAR); UR COLOR YELLOW (YELLOW); UR GLUCOSE (Dip) NEGATIVE (NEGATIVE); UR KETONES (Dip) NEGATIVE (NEGATIVE); UR LEUKOCYTE ESTERASE (Dip) NEGATIVE Leu/ul (NEGATIVE); UR NITRITE (Dip) NEGATIVE (NEGATIVE); UR RBC 2 /HPF (0-5); UR SPECIFIC GRAVITY (Dip) 1.021 (1.003-1.030); UR TOTAL PROTEIN (Dip) NEGATIVE (NEGATIVE); UR UROBILINOGEN (Dip) NEGATIVE (NEGATIVE)
[2016-12-07 08:15] VITALS: BP 106/57; RESP 18
[2016-12-07] MEDS ORDERED: FERROUS FUMARATE (SR) TAB PO SCH (09:00)
[2016-12-07] MEDS: ASPIRIN (EC) 325 MG TAB PO SCH ×2 (09:13→20:46)
[2016-12-07] MEDS: DOCUSATE SODIUM 100 MG CAP PO SCH ×2 (09:13→20:46)
[2016-12-07] MEDS: FERROUS SULFATE (EC) 325 MG TAB PO SCH ×3 (09:13→20:45)
[2016-12-07] MEDS: CELECOXIB 200 MG CAP PO SCH ×2 (09:13→20:46)
[2016-12-07 14:07] VITALS: BP 111/69; RESP 18
[2016-12-07 19:30] VITALS: BP 121/65; RESP 18
[2016-12-07 20:18] LABS: HEMATOCRIT 28.7 % (37.0-47.0)
[2016-12-08 02:30] VITALS: BP 154/84; RESP 18
[2016-12-08] MEDS: DEXTROSE 5%-LR 1,000 ML IV SCH ×2 (03:00→15:30)
[2016-12-08] MEDS: ACETAMINOPHEN 1000MG/100ML IV 100 ML IVPB SCH (05:13)
[2016-12-08] MEDS: DEXAMETHASONE 4 MG/ML 1 ML INJ IV SCH (06:47)
[2016-12-08] MEDS: PANTOPRAZOLE (EC) 40 MG TAB PO SCH (06:47)
--- NOTE | 2016-12-08 07:23 | CONS ---
Date/Time of Note Date/Time of Note DATE: 12/08/16 TIME: 07:18 Assessment/Plan Assessment/Plan Problems: (1) Status post total right knee replacement Status: Acute Comment: Patient at this time reports that she is getting up and moving around. Given that she was in a wheelchair preoperatively this is a significant improvement. She has a good attitude and I believe her rehabilitation potential is adequate-fair. She will continue with physical therapy under the guidance of Dr. Dunn. She does not appear to have any significant postoperative complications with the exception of the anemia and has been transfused (2) Osteoporosis Status: Chronic Comment: This is noted. Patient informs me that she discuss this with her technology teacher Dr. Usha West and they had agreed that she would do this with "natural" therapeutics. Patient has declined treatment. I would be declining treatment a more traditional fashion such as bisphosphonate therapy, Prolia, Forteo etc. Qualifiers: Osteoporosis type: unspecified Presence of current pathological fracture: without current pathological fracture Qualified Code: M81.0 - Osteoporosis without current pathological fracture, unspecified osteoporosis type (3) Iron deficiency anemia Status: Chronic Comment: She has iron deficiency anemia. I would give her a dosage of Ferrlecit IV to help speed the process of allowing her body to rebuild her blood counts. In terms of the postoperative anemia she is received 2 units of blood cells Qualifiers: Iron deficiency anemia type: unspecified iron deficiency Qualified Code: D50.9 - Iron deficiency anemia, unspecified iron deficiency anemia type (4) Postoperative anemia Status: Acute Comment: As noted above she has been transfused 2 units as a more stable state. At this time based on her today's labs I would not give her an additional transfusion (5) Rheumatoid arthritis Status: Chronic Comment: The patient informs me that she discuss this with her technology teacher. They have opted to not treat her in a traditional fashion and as such she has used all natural products for this. She has clear-cut evidence of rheumatoid arthritis on her exam Qualifiers: Rheumatoid arthritis location: hand Rheumatoid factor presence: with rheumatoid factor Laterality: bilateral Qualified Code: M05.741 - Rheumatoid arthritis involving both hands with positive rheumatoid factor (6) Osteoarthritis Status: Chronic Comment: She is coming along. She has had one knee replacement. Will defer to Dr. Dunn's judgment about any further interventions based on how she improves. Qualifiers: Osteoarthritis location: knee Osteoarthritis type: primary Laterality: bilateral Qualified Code: M17.0 - Primary osteoarthritis of both knees Consultation Date/Type/Reason Admit Date/Time Dec 06, 2016 at 06:01 Initial Consult Date December 06, 2016 Type of Consultation: internal medicine Reason for Consultation Rheumatoid arthritis; osteoarthritis; iron deficiency anemia; osteoporosis Referring Provider: AMAYA DUNN MD 24 HR Interval Summary Free Text/Dictation Patient awake and alert in bed. She reports that she is doing relatively well. She has been up yesterday twice with physical therapy not yet today due to the early hour Constitutional: no complaints (Denies fevers chills or sweats) Detailed Summary ENT: no complaints Respiratory: no complaints Cardiovascular: no complaints (Denies chest pain palpitations orthopnea or PND) Gastrointestinal: no complaints Genitourinary: no complaints Musculoskeletal: other (Some pain at surgical site also pain from the rheumatoid arthritis) Neurologic: no complaints Exam/Review of Systems Vital Signs Vitals Vital Signs Date Time Temp Pulse Resp B/P Pulse Ox O2 Delivery O2 Flow Rate FiO2 12/08/16 02:30 97.7 74 18 154/84 99 12/06/16 17:00 Room Air Intake and Output 12/07/16 12/07/16 12/08/16 15:00 23:00 07:00 Intake Total 190 ml 1540 ml 600 ml Output Total 1400 ml 900 ml Balance 190 ml 140 ml -300 ml Exam Constitutional: alert, oriented Neck: non-tender, supple Respiratory: clear to auscultation, normal air movement Cardiovascular: nl pulses, regular rate and rhythm Extremities: other (Hands with classical deviations of rheumatoid arthritis; lower extremities without note) Results Result Diagram: 12/07/161916 Results 24 hrs Laboratory Tests Test 12/07/16 19:17 Hemoglobin 9.0 #L Hematocrit 28.7 #L Medications Medications Current Medications Dextrose/Lactated Ringer's (D5-Lr) 1,000 ml @ 80 mls/hr [id number] IV Last administered on 12/06/16t 16:02; Admin Dose 80 MLS/HR; Start 12/06/16 at 13:30 Oxycodone HCl (Roxicodone) 20 mg Q3H PRN PO PAIN LEVEL 8-10; Start 12/06/16 at 13:30 Oxycodone HCl (Roxicodone) 10 mg Q3H PRN PO PAIN LEVEL 4-7; Start 12/06/16 at 13:30 Oxycodone HCl (Roxicodone) 5 mg Q3H PRN PO PAIN LEVEL 1-3; Start 12/06/16 at 13 :30 Zolpidem Tartrate (Ambien) 5 mg HS PRN PO INSOMNIA; Start 12/06/16 at 13:30 Miscellaneous Information (Note) NOTE XX ; Start 12/06/16 at 13:30 Aspirin (Ecotrin) 325 mg BID PO Last administered on 12/07/16 20:46; Admin Dose 325 MG; Start 12/07/16 at 09:00 Celecoxib (Celebrex) 200 mg BID PO Last administered on 12/07/16 20:46; Admin Dose 200 MG; Start 12/07/16 at 09:00 Dexamethasone (Decadron) 4 mg DAILY@07 IV Last administered on 12/08/16 06:47 ; Admin Dose 4 MG; Start 12/07/16 at 07:00; Stop 12/10/16 at 06:59 Pantoprazole (Protonix Tab) 40 mg DAILY@06 PO Last administered on 12/08/16 06 :47; Admin Dose 40 MG; Start 12/08/16 at 06:00 Docusate Sodium (Colace) 200 mg BID PO Last administered on 12/07/16 20:46; Admin Dose 200 MG; Start 12/07/16 at 09:00; Stop 12/10/16 at 08:59 Simethicone (Mylicon) 80 mg TID PRN PO DISTENSION/GAS/BLOATING; Start 12/06/16 at 13:30 Senna/Docusate Sodium (Senokot-S) 2 tab BID PRN PO CONSTIPATION; Start at 13:30 Magnesium Hydroxide (Milk Of Mag) 30 ml HS PRN PO CONSTIPATION; Start 12/06/16 at 13:30 Bisacodyl (Dulcolax Supp) [address] CONSTIPATION; Start 12/06/16 at 13 :30 Sodium Biphosphate/ Sodium Phosphate (Fleet Enema) [address] CONSTIPATION; Start 12/06/16 at 13:30 Diphenhydramine HCl (Benadryl) 25 mg Q4H PRN IM ITCHING OR RASH; Start at 13:30 Ketorolac Tromethamine (Toradol) 15 mg DAILY@06 PRN INJ ADMINSTER BY SURGEON ONLY; Start 12/07/16 at 06:00; Stop 12/11/16 at 05:59 Bupivacaine HCl/ Epinephrine Bitart (Marcaine 0.25%/ Epi (Sdv) 30 ml) 20 ml DAILY@06 PRN INJ ADMINSTER BY SURGEON ONLY; Start 12/07/16 at 06:00; Stop 12/11 at 05:59 Naloxone HCl (Narcan) 0.2 mg Q2M PRN IV DECREASED REPIRATORY RATE; Start at 13:30 Ferrous Sulfate 325 mg 325 mg TID PO Last administered on 12/07/16t 20:45; Admin Dose 325 MG; Start 12/06/16 at 21:00 Ferric Sodium Gluconate Complex/ Sodium Chloride (Ferrlecit/NS) 110 ml @ 100 mls/hr Q24H IVPB ; Start 12/08/16 at 09:00; Stop 12/10/16 at 10:05 CORRY SCHRADER MD Dec 08, 2016 07:23
--- NOTE | 2016-12-08 08:09 | PN ---
Date/Time of Note Date/Time of Note DATE: 12/08/16 TIME: 08:07 Assessment/Plan VTE Prophylaxis VTE Prophylaxis Intervention: ambulation, SCD's, other (Aspirin 325 mg twice daily) Lines/Catheters IV Catheter Type (from Nrsg): Saline Lock Witt in Place (from Nrsg): Yes Assessment/Plan Assessment/Plan -Hemovac Removed Today -Pain Cocktail Given -Pain Meds as needed -Dress change performed today -OOB with PT -ASA/SCDs for DVT Prophylaxis -Continue monitoring with Internal Medicine -Patient Stable. -Expected transfer to acute rehab unit tomorrow if the patient remained stable. Subjective 24 Hr Interval Summary 56-year-old female postop day 2 status post right total knee arthroplasty. Patient was extremely anemic yesterday and received 2 units of packed red blood cells. Hemoglobin back up to normal level. Patient also states that fatigue has significantly improved after transfusion. Denies any pain to the right knee. Patient was up and walking with physical therapy just in the patient room. Denies any chest pain/tightness, calf pain or difficulty breathing. Continues to progress well. Exam/Review of Systems Vital Signs Vitals Vital Signs Date Time Temp Pulse Resp B/P Pulse Ox O2 Delivery O2 Flow Rate FiO2 12/08/16 02:30 97.7 74 18 154/84 99 12/06/16 17:00 Room Air Intake and Output 12/07/16 12/07/16 12/08/16 15:00 23:00 07:00 Intake Total 190 ml 1540 ml 600 ml Output Total 1400 ml 900 ml Balance 190 ml 140 ml -300 ml Exam Free Text/Dictation -Hemovac: Intact. 200 cc output overnight. -Pain Cocktail Drains: Intact. Bleeding around cocktail drain site. -Incision: Clean, Dry and Intact without any redness or drainage -4/5 Tibialis Anterior, EHL Gastrocnemius/Soleus and Peroneals -Normal Sensation -Palpable DP/PT, Capillary Refill <2 secs -No Distal Edema -Negative Pasquale Sign/No calf pain -Toes Freely Movable Constitutional: alert, oriented, well developed Results Result Diagram: 12/07/161916 ROSALVA PENA PA-C Dec 08, 2016 08:09
[2016-12-08 08:23] VITALS: BP 124/74; RESP 15
[2016-12-08 08:33] LABS: BASOPHILS % 0.2 % (0.0-2.0); EOSINOPHILS # 0.4 10^3/ul (0.0-0.5); EOSINOPHILS % 3.8 % (0.0-7.0); HEMATOCRIT 29.4 % (37.0-47.0); HEMOGLOBIN 9.4 g/dl (12.0-16.0); LYMPHOCYTES # 2.2 10^3/ul (0.8-2.9); LYMPHOCYTES % 20.8 % (15.0-51.0); MEAN CORPUSCULAR HEMOGLOBIN 25.5 pg (29.0-33.0); MEAN CORPUSCULAR VOLUME 79.9 fl (82.0-101.0); MONOCYTE # 0.5 10^3/ul (0.3-0.9); MONOCYTES % 5.1 % (0.0-11.0); NEUTROPHILS % 69.5 % (39.0-77.0); PLATELET COUNT 317 10^3/UL (140-415); RED BLOOD COUNT 3.68 10^6/ul (4.20-5.40); RED CELL DISTRIBUTION WIDTH 16.6 % (11.5-14.5); WHITE BLOOD COUNT 10.6 10^3/ul (4.8-10.8)
[2016-12-08] MEDS: FERROUS SULFATE (EC) 325 MG TAB PO SCH ×3 (09:00→21:11)
[2016-12-08] MEDS: DOCUSATE SODIUM 100 MG CAP PO SCH ×2 (09:00→21:11)
[2016-12-08] MEDS: CELECOXIB 200 MG CAP PO SCH ×2 (09:00→21:11)
[2016-12-08] MEDS: ASPIRIN (EC) 325 MG TAB PO SCH ×2 (09:00→21:11)
[2016-12-08] MEDS: oxyCODONE 5 MG TAB PO PRN ×3 (10:52→23:12)
[2016-12-08] MEDS: SOD FERRIC GLUC COMPLX 125 MG in SOD CHLORIDE 0.9% 100 ML IVPB SCH (11:45)
[2016-12-08 14:00] VITALS: BP 119/69; RESP 15
[2016-12-08 19:20] VITALS: BP 133/78; RESP 18
[2016-12-09 02:20] VITALS: BP 128/72; RESP 18
[2016-12-09] MEDS: DEXTROSE 5%-LR 1,000 ML IV SCH ×2 (04:00→16:03)
[2016-12-09 05:08] LABS: BASOPHILS % 0.3 % (0.0-2.0); EOSINOPHILS # 0.4 10^3/ul (0.0-0.5); EOSINOPHILS % 4.3 % (0.0-7.0); HEMATOCRIT 27.1 % (37.0-47.0); HEMOGLOBIN 8.6 g/dl (12.0-16.0); LYMPHOCYTES # 2.9 10^3/ul (0.8-2.9); LYMPHOCYTES % 31.9 % (15.0-51.0); MEAN CORPUSCULAR HEMOGLOBIN 25.1 pg (29.0-33.0); MEAN CORPUSCULAR HGB CONC 31.7 g/dl (32.0-37.0); MEAN CORPUSCULAR VOLUME 79.2 fl (82.0-101.0); MEAN PLATELET VOLUME 9.1 fl (7.4-10.4); MONOCYTE # 0.8 10^3/ul (0.3-0.9); NEUTROPHILS % 54.2 % (39.0-77.0); PLATELET COUNT 336 10^3/UL (140-415); RED BLOOD COUNT 3.42 10^6/ul (4.20-5.40); RED CELL DISTRIBUTION WIDTH 17.2 % (11.5-14.5)
[2016-12-09] MEDS: PANTOPRAZOLE (EC) 40 MG TAB PO SCH (06:10)
[2016-12-09] MEDS: DEXAMETHASONE 4 MG/ML 1 ML INJ IV SCH (06:10)
[2016-12-09] MEDS: oxyCODONE 5 MG TAB PO PRN ×5 (06:13→23:54)
--- NOTE | 2016-12-09 07:32 | CONS ---
Date/Time of Note Date/Time of Note DATE: 12/09/16 TIME: 07:29 Assessment/Plan Assessment/Plan Problems: (1) Status post total right knee replacement Status: Acute Comment: As per Dr. uDnn and his team. Patient is ready to be discharged to a rehabilitation center. Anticoagulation will be aspirin twice a day for 3 weeks (2) Iron deficiency anemia Status: Chronic Comment: To continue on iron replacement therapy. While in hospital we are supplementing with parenteral iron. Otherwise she will go with oral iron and should rebuild quite nicely Qualifiers: Iron deficiency anemia type: unspecified iron deficiency Qualified Code: D50.9 - Iron deficiency anemia, unspecified iron deficiency anemia type (3) Postoperative anemia Status: Acute Comment: Stable postop and holding no need for further transfusion (4) Osteoarthritis Status: Chronic Comment: Had has had what appears to be a very good outcome from the first intervention Qualifiers: Osteoarthritis location: knee Osteoarthritis type: primary Laterality: bilateral Qualified Code: M17.0 - Primary osteoarthritis of both knees (5) Rheumatoid arthritis Status: Chronic Comment: Please see my note from yesterday no changes Qualifiers: Rheumatoid arthritis location: hand Rheumatoid factor presence: with rheumatoid factor Laterality: bilateral Qualified Code: M05.741 - Rheumatoid arthritis involving both hands with positive rheumatoid factor (6) Osteoporosis Status: Chronic Comment: She will need to be treated for osteoporosis when she is stable postoperative. If she is going for another surgery in the near future than my recommendation would actually be to use Prolia. After the second surgery is done I will transition over to Forteo for a two-year time course and then revert back to Prolia. This of course of symptoms of the patient is willing to take these medications which she indicates she is not Qualifiers: Osteoporosis type: unspecified Presence of current pathological fracture: without current pathological fracture Qualified Code: M81.0 - Osteoporosis without current pathological fracture, unspecified osteoporosis type Consultation Date/Type/Reason Admit Date/Time Dec 06, 2016 at 06:01 Initial Consult Date December 06, 2016 Type of Consultation: internal medicine Reason for Consultation Rheumatoid arthritis; medical problems postop Referring Provider: AMAYA DUNN MD 24 HR Interval Summary Constitutional: no complaints (Denies fevers chills or sweats) Detailed Summary Respiratory: no complaints Cardiovascular: no complaints Gastrointestinal: no complaints Genitourinary: no complaints Musculoskeletal: other (Leg pain at operative site.) Exam/Review of Systems Vital Signs Vitals Vital Signs Date Time Temp Pulse Resp B/P Pulse Ox O2 Delivery O2 Flow Rate FiO2 12/09/16 02:20 98.5 88 18 128/72 97 12/06/16 17:00 Room Air Intake and Output 12/08/16 12/08/16 12/09/16 15:00 23:00 07:00 Intake Total 110 ml 1020 ml 500 ml Output Total 1000 ml Balance 110 ml 20 ml 500 ml Exam Constitutional: alert, oriented Neck: non-tender, supple Respiratory: clear to auscultation, normal air movement Cardiovascular: nl pulses, regular rate and rhythm Gastrointestinal: nl liver, spleen, non-tender, soft Extremities: other (Negative Homans sign.) Results Result Diagram: 12/09/16 0432 Results 24 hrs Laboratory Tests Test 12/08/16 08:08 12/08/16 08:50 12/09/16 04:32 White Blood Count 10.6 9.0 Red Blood Count 3.68 #L 3.42 L Hemoglobin 9.4 L 8.6 L Hematocrit 29.4 L 27.1 L Mean Corpuscular Volume 79.9 L 79.2 L Mean Corpuscular Hemoglobin 25.5 L 25.1 L Mean Corpuscular Hemoglobin Concent 32.0 31.7 L Red Cell Distribution Width 16.6 H 17.2 H Platelet Count 317 336 Mean Platelet Volume 9.0 9.1 Neutrophils % 69.5 54.2 Lymphocytes % 20.8 31.9 Monocytes % 5.1 9.0 Eosinophils % 3.8 4.3 Basophils % 0.2 0.3 Nucleated Red Blood Cells % 0.0 0.0 Neutrophils # (Manual) 7 5 Lymphocytes # 2.2 2.9 Monocytes # 0.5 0.8 Eosinophils # 0.4 0.4 Basophils # 0.0 0.0 Nucleated Red Blood Cells # 0.0 0.0 Lab Scanned Report BLOOD TRANSFUSION Medications Medications Current Medications Dextrose/Lactated Ringer's (D5-Lr) 1,000 ml @ 80 mls/hr [id number] IV Last administered on 12/06/16t 16:02; Admin Dose 80 MLS/HR; Start 12/06/16 at 13:30 Oxycodone HCl (Roxicodone) 20 mg Q3H PRN PO PAIN LEVEL 8-10; Start 12/06/16 at 13:30 Oxycodone HCl (Roxicodone) 10 mg Q3H PRN PO PAIN LEVEL 4-7; Start 12/06/16 at 13:30 Oxycodone HCl (Roxicodone) 5 mg Q3H PRN PO PAIN LEVEL 1-3 Last administered on 12/09/16 06:13; Admin Dose 5 MG; Start 12/06/16 at 13:30 Zolpidem Tartrate (Ambien) 5 mg HS PRN PO INSOMNIA; Start 12/06/16 at 13:30 Miscellaneous Information (Note) NOTE XX ; Start 12/06/16 at 13:30 Aspirin (Ecotrin) 325 mg BID PO Last administered on 12/08/16 21:11; Admin Dose 325 MG; Start 12/07/16 at 09:00 Celecoxib (Celebrex) 200 mg BID PO Last administered on 12/08/16 21:11; Admin Dose 200 MG; Start 12/07/16 at 09:00 Dexamethasone (Decadron) 4 mg DAILY@07 IV Last administered on 12/09/16 06:10 ; Admin Dose 4 MG; Start 12/07/16 at 07:00; Stop 12/10/16 at 06:59 Pantoprazole (Protonix Tab) 40 mg DAILY@06 PO Last administered on 12/09/16 06 :10; Admin Dose 40 MG; Start 12/08/16 at 06:00 Docusate Sodium (Colace) 200 mg BID PO Last administered on 12/08/16 21:11; Admin Dose 200 MG; Start 12/07/16 at 09:00; Stop 12/10/16 at 08:59 Simethicone (Mylicon) 80 mg TID PRN PO DISTENSION/GAS/BLOATING; Start 12/06/16 at 13:30 Senna/Docusate Sodium (Senokot-S) 2 tab BID PRN PO CONSTIPATION; Start at 13:30 Magnesium Hydroxide (Milk Of Mag) 30 ml HS PRN PO CONSTIPATION; Start 12/06/16 at 13:30 Bisacodyl (Dulcolax Supp) 10 mg DAILY PRN [place] CONSTIPATION; Start 12/06/16 at 13 :30 Sodium Biphosphate/ Sodium Phosphate (Fleet Enema) 133 ml DAILY PRN [place] CONSTIPATION; Start 12/06/16 at 13:30 Diphenhydramine HCl (Benadryl) 25 mg Q4H PRN IM ITCHING OR RASH; Start at 13:30 Ketorolac Tromethamine (Toradol) 15 mg DAILY@06 PRN INJ ADMINSTER BY SURGEON ONLY; Start 12/07/16 at 06:00; Stop 12/11/16 at 05:59 Bupivacaine HCl/ Epinephrine Bitart (Marcaine 0.25%/ Epi (Sdv) 30 ml) 20 ml DAILY@06 PRN INJ ADMINSTER BY SURGEON ONLY; Start 12/07/16 at 06:00; Stop 12/11 at 05:59 Naloxone HCl (Narcan) 0.2 mg Q2M PRN IV DECREASED REPIRATORY RATE; Start at 13:30 Ferrous Sulfate 325 mg 325 mg TID PO Last administered on 12/08/16 21:11; Admin Dose 325 MG; Start 12/06/16 at 21:00 Ferric Sodium Gluconate Complex/ Sodium Chloride (Ferrlecit/NS) 110 ml @ 100 mls/hr Q24H IVPB Last administered on 12/08/16 11:45; Admin Dose 100 MLS/HR; Start 12/08/16 at 09:00; Stop 12/10/16 at 10:05 CORRY SCHRADER MD Dec 09, 2016 07:32
--- NOTE | 2016-12-09 07:52 | PN ---
Date/Time of Note Date/Time of Note DATE: 12/09/16 TIME: 07:48 Assessment/Plan VTE Prophylaxis VTE Prophylaxis Intervention: ambulation, SCD's, other (Aspirin 325 mg twice daily) Lines/Catheters IV Catheter Type (from Nrsg): Saline Lock Witt in Place (from Nrsg): Yes Assessment/Plan Assessment/Plan -Pain Cocktail Given. Drains removed and Dermabond as well as dressing placed over drain sites. -Pain Meds as needed -Dress change performed today. Blisters to the distal wound were drained and dressed. Discussed with nurse as well as in regards to wound care for blistering. -ASA for DVT Prophylaxis x 6 weeks outpatient discussed. -Continue monitoring as outpatient on discharge -Prescription for Keflex 500 mg 1 tab p.o. 4 times daily 7 days #20 tablets written today to be taken on discharge for ongoing infection prophylaxis. -Follow-up at scheduled postop outpatient appointment or sooner if there is any issue. -Tegaderm dressings given with specific instructions to use as outpatient to keep wound dry until joie are moved around 10 days. -Patient Stable -Discharge to ARU Subjective 24 Hr Interval Summary 56-year-old female postop day 3 status post right total knee arthroplasty. Patient has complaints after physical therapy in regards to pain. Overall, she states that she is doing well. Denies any chest pain/tightness. Continues to have improvement in regards to dizziness/nausea after blood transfusion. Patient was up and walking throughout the hallway. Using front wheeled walker. Exam/Review of Systems Vital Signs Vitals Vital Signs Date Time Temp Pulse Resp B/P Pulse Ox O2 Delivery O2 Flow Rate FiO2 12/09/16 02:20 98.5 88 18 128/72 97 12/06/16 17:00 Room Air Intake and Output 12/08/16 12/08/16 12/09/16 15:00 23:00 07:00 Intake Total 110 ml 1020 ml 500 ml Output Total 1000 ml Balance 110 ml 20 ml 500 ml Exam Free Text/Dictation -Hemovac: Removed -Pain Cocktail Drains: Intact but bleeding around drain site. -Incision: Clean, Dry and Intact without any redness or drainage. Ecchymosis to the distal wound. There is also blistering noticed surrounding adhesive Tegaderm. -4/5 Tibialis Anterior, EHL Gastrocnemius/Soleus and Peroneals -Normal Sensation -Palpable DP/PT, Capillary Refill <2 secs -No Distal Edema -Negative Pasquale Sign/No calf pain -Toes Freely Movable Constitutional: alert, oriented, well developed Results Result Diagram: 12/09/16 0432 ROSALVA PENA PA-C Dec 09, 2016 07:52
[2016-12-09] MEDS: DOCUSATE SODIUM 100 MG CAP PO SCH ×2 (08:57→20:18)
[2016-12-09] MEDS: FERROUS SULFATE (EC) 325 MG TAB PO SCH ×3 (08:57→20:17)
[2016-12-09] MEDS: FISH OIL 1,000 MG CAP PO SCH ×2 (08:57→20:17)
[2016-12-09] MEDS: CELECOXIB 200 MG CAP PO SCH ×2 (08:57→20:18)
[2016-12-09] MEDS: SOD FERRIC GLUC COMPLX 125 MG in SOD CHLORIDE 0.9% 100 ML IVPB SCH (08:57)
[2016-12-09] MEDS: ASPIRIN (EC) 325 MG TAB PO SCH ×2 (08:57→20:18)
[2016-12-09 09:07] VITALS: BP 118/66; RESP 18
[2016-12-09 16:23] VITALS: BP 98/59; RESP 20
[2016-12-09 19:31] VITALS: BP 140/70; RESP 16
[2016-12-10 01:49] VITALS: BP 118/66; RESP 18
[2016-12-10] MEDS: PANTOPRAZOLE (EC) 40 MG TAB PO SCH (05:04)
[2016-12-10] MEDS: oxyCODONE 5 MG TAB PO PRN ×3 (05:05→19:03)
--- NOTE | 2016-12-10 07:48 | CONS ---
Date/Time of Note Date/Time of Note DATE: 12/10/16 TIME: 07:42 Consult Date/Type/Reason Admit Date/Time Dec 06, 2016 at 06:01 Initial Consult Date 11/30/2016 Type of Consultation: internal medicine Reason for Consultation medical f/u and management Ordering Provider: AMAYA DUNN MD Subjective alert looking forward to going to acute rehab for forther progress in view of RA doing better now Objective Vital Signs Date Time Temp Pulse Resp B/P Pulse Ox O2 Delivery O2 Flow Rate FiO2 12/10/16 01:49 97.7 95 18 118/66 97 12/06/16 17:00 Room Air Intake and Output 12/09/16 12/09/16 12/10/16 15:00 23:00 07:00 Intake Total 110 ml 800 ml 950 ml Output Total 850 ml Balance 110 ml 800 ml 100 ml Exam vss heent neg. lungs clear heart regular rhythm abdomen soft Results/Medications Result Diagram: 12/09/16 0432 Results 24 hrs Hb. holding above 8 received transfusions and iron Medications Current Medications Oxycodone HCl (Roxicodone) 20 mg Q3H PRN PO PAIN LEVEL 8-10; Start 12/06/16 at 13:30 Oxycodone HCl (Roxicodone) 10 mg Q3H PRN PO PAIN LEVEL 4-7; Start 12/06/16 at 13:30 Oxycodone HCl (Roxicodone) 5 mg Q3H PRN PO PAIN LEVEL 1-3 Last administered on 12/10/16 05:05; Admin Dose 5 MG; Start 12/06/16 at 13:30 Zolpidem Tartrate (Ambien) 5 mg HS PRN PO INSOMNIA; Start 12/06/16 at 13:30 Miscellaneous Information (Note) NOTE XX ; Start 12/06/16 at 13:30 Aspirin (Ecotrin) 325 mg BID PO Last administered on 12/09/16 20:18; Admin Dose 325 MG; Start 12/07/16 at 09:00 Celecoxib (Celebrex) 200 mg BID PO Last administered on 12/09/16 20:18; Admin Dose 200 MG; Start 12/07/16 at 09:00 Pantoprazole (Protonix Tab) 40 mg DAILY@06 PO Last administered on 12/10/16 05 :04; Admin Dose 40 MG; Start 12/08/16 at 06:00 Docusate Sodium (Colace) 200 mg BID PO Last administered on 12/09/16 08:57; Admin Dose 200 MG; Start 12/07/16 at 09:00; Stop 12/10/16 at 08:59 Simethicone (Mylicon) 80 mg TID PRN PO DISTENSION/GAS/BLOATING; Start 12/06/16 at 13:30 Senna/Docusate Sodium (Senokot-S) 2 tab BID PRN PO CONSTIPATION; Start at 13:30 Magnesium Hydroxide (Milk Of Mag) 30 ml HS PRN PO CONSTIPATION; Start 12/06/16 at 13:30 Bisacodyl (Dulcolax Supp) 10 mg DAILY PRN [place] CONSTIPATION; Start 12/06/16 at 13 :30 Sodium Biphosphate/ Sodium Phosphate (Fleet Enema) 133 ml DAILY PRN [place] CONSTIPATION; Start 12/06/16 at 13:30 Diphenhydramine HCl (Benadryl) 25 mg Q4H PRN IM ITCHING OR RASH; Start at 13:30 Ketorolac Tromethamine (Toradol) 15 mg DAILY@06 PRN INJ ADMINSTER BY SURGEON ONLY; Start 12/07/16 at 06:00; Stop 12/11/16 at 05:59 Bupivacaine HCl/ Epinephrine Bitart (Marcaine 0.25%/ Epi (Sdv) 30 ml) 20 ml DAILY@06 PRN INJ ADMINSTER BY SURGEON ONLY; Start 12/07/16 at 06:00; Stop 12/11 at 05:59 Naloxone HCl (Narcan) 0.2 mg Q2M PRN IV DECREASED REPIRATORY RATE; Start at 13:30 Ferrous Sulfate 325 mg 325 mg TID PO Last administered on 12/09/16 20:17; Admin Dose 325 MG; Start 12/06/16 at 21:00 Ferric Sodium Gluconate Complex/ Sodium Chloride (Ferrlecit/NS) 110 ml @ 100 mls/hr Q24H IVPB Last administered on 12/09/16 08:57; Admin Dose 100 MLS/HR; Start 12/08/16 at 09:00; Stop 12/10/16 at 10:05 Fish Oil (Fish Oil) 1,000 mg BID PO Last administered on 12/09/16t 20:17; Admin Dose 1,000 MG; Start 12/09/16 at 09:00 Assessment/Plan Chief Complaint/Hosp Course post op total knee replacement right knee stable post op Problems: Additional Assessment/Plan plan will try to get patient to acute rehab in view of RA and other problems feel she would benefit--[facility] MD Dec 10, 2016 07:47
--- NOTE | 2016-12-10 07:55 | PN ---
Date/Time of Note Date/Time of Note DATE: 12/10/16 TIME: 07:53 Assessment/Plan VTE Prophylaxis VTE Prophylaxis Intervention: ambulation, SCD's, other (Aspirin 325 mg twice daily) Lines/Catheters IV Catheter Type (from Nrsg): Saline Lock Witt in Place (from Nrsg): Yes Assessment/Plan Assessment/Plan -Pain Meds as needed -Dress change performed today -ASA for DVT Prophylaxis x 6 weeks outpatient discussed. -Continue monitoring as outpatient on discharge -Follow-up at scheduled postop outpatient appointment or sooner if there is any issue. -Tegaderm dressings given with specific instructions to use as outpatient to keep wound dry until joie are moved around 10 days. -Patient Stable -Discharge to ARU Subjective 24 Hr Interval Summary 56-year-old female postop day 4 status post right total knee arthroplasty. Patient continues to do well. Patient is weightbearing and ambulating with physical therapy but states that yesterday there was limited weightbearing as she was using a CPM machine instead. Denies any calf pain. Denies any chest pain/tightness. Denies any shortness of breath. Continues with limited range of motion to the knee. Attempted transfer to rehab facility yesterday was unsuccessful but second attempt will be performed today. Exam/Review of Systems Vital Signs Vitals Vital Signs Date Time Temp Pulse Resp B/P Pulse Ox O2 Delivery O2 Flow Rate FiO2 12/10/16 01:49 97.7 95 18 118/66 97 12/06/16 17:00 Room Air Intake and Output 12/09/16 12/09/16 12/10/16 15:00 23:00 07:00 Intake Total 110 ml 800 ml 950 ml Output Total 850 ml Balance 110 ml 800 ml 100 ml Exam Free Text/Dictation -Hemovac: Removed -Incision: Clean, Dry and Intact without any redness or drainage -5/5 Tibialis Anterior, EHL Gastrocnemius/Soleus and Peroneals -Normal Sensation -Palpable DP/PT, Capillary Refill <2 secs -No Distal Edema -Negative Pasquale Sign/No calf pain -Toes Freely Movable Constitutional: alert, oriented, well developed Results Result Diagram: 12/09/16 0432 ROSALVA PENA PA-C Dec 10, 2016 07:55
[2016-12-10 08:15] VITALS: BP 114/62; RESP 16
[2016-12-10] MEDS: FERROUS SULFATE (EC) 325 MG TAB PO SCH ×3 (09:30→20:17)
[2016-12-10] MEDS: CELECOXIB 200 MG CAP PO SCH ×2 (09:30→20:17)
[2016-12-10] MEDS: ASPIRIN (EC) 325 MG TAB PO SCH ×2 (09:30→20:17)
[2016-12-10] MEDS: FISH OIL 1,000 MG CAP PO SCH ×2 (09:30→20:17)
[2016-12-10] MEDS: SOD FERRIC GLUC COMPLX 125 MG in SOD CHLORIDE 0.9% 100 ML IVPB SCH (09:30)
[2016-12-10 10:50] LABS: BASOPHILS % 0.4 % (0.0-2.0); EOSINOPHILS # 0.3 10^3/ul (0.0-0.5); EOSINOPHILS % 2.9 % (0.0-7.0); HEMATOCRIT 31.7 % (37.0-47.0); HEMOGLOBIN 9.6 g/dl (12.0-16.0); LYMPHOCYTES # 2.4 10^3/ul (0.8-2.9); LYMPHOCYTES % 26.7 % (15.0-51.0); MEAN CORPUSCULAR HEMOGLOBIN 25.1 pg (29.0-33.0); MEAN CORPUSCULAR HGB CONC 30.3 g/dl (32.0-37.0); MEAN CORPUSCULAR VOLUME 82.8 fl (82.0-101.0); MEAN PLATELET VOLUME 9.1 fl (7.4-10.4); MONOCYTE # 0.6 10^3/ul (0.3-0.9); MONOCYTES % 6.4 % (0.0-11.0); NEUTROPHILS % 63.3 % (39.0-77.0); PLATELET COUNT 407 10^3/UL (140-415); RED BLOOD COUNT 3.83 10^6/ul (4.20-5.40); RED CELL DISTRIBUTION WIDTH 18.6 % (11.5-14.5); WHITE BLOOD COUNT 9.1 10^3/ul (4.8-10.8)
[2016-12-10] MEDS ORDERED: CEPHALEXIN 250 MG CAP PO SCH (12:00)
[2016-12-10] MEDS: CEPHALEXIN 500 MG CAP PO SCH (19:04)
[2016-12-10 20:37] VITALS: BP 103/55; RESP 18
[2016-12-11] MEDS: CEPHALEXIN 500 MG CAP PO SCH ×4 (00:49→17:33)
[2016-12-11] MEDS: oxyCODONE 5 MG TAB PO PRN ×4 (00:50→17:33)
[2016-12-11 00:54] VITALS: BP 99/55; PULSE 97; RESP 19
[2016-12-11] MEDS: PANTOPRAZOLE (EC) 40 MG TAB PO SCH (06:54)
[2016-12-11 07:47] VITALS: BP 99/57; RESP 16
[2016-12-11] MEDS: ASPIRIN (EC) 325 MG TAB PO SCH ×2 (08:28→20:37)
[2016-12-11] MEDS: CELECOXIB 200 MG CAP PO SCH ×2 (08:28→20:36)
[2016-12-11] MEDS: FISH OIL 1,000 MG CAP PO SCH ×2 (08:28→20:37)
[2016-12-11] MEDS: FERROUS SULFATE (EC) 325 MG TAB PO SCH ×3 (08:28→20:37)
--- NOTE | 2016-12-11 08:53 | PN ---
Date/Time of Note Date/Time of Note DATE: 12/11/16 TIME: 08:50 Assessment/Plan VTE Prophylaxis VTE Prophylaxis Intervention: ambulation, SCD's, other (Aspirin 325 mg twice daily) Lines/Catheters IV Catheter Type (from Nrsg): Saline Lock Witt in Place (from Nrsg): Yes Assessment/Plan Assessment/Plan -Pain Meds as needed -Dress change performed today -ASA for DVT Prophylaxis x 6 weeks outpatient discussed. -Continue monitoring as outpatient on discharge -Follow-up at scheduled postop outpatient appointment or sooner if there is any issue. -Tegaderm dressings given with specific instructions to use as outpatient to keep wound dry until joie are moved around 10 days. -Patient Stable -Discharge to ARU. Important to note that patient will need wound care for monitoring of blistering while in acute rehab unit Subjective 24 Hr Interval Summary 56-year-old female postop day 5 status post right total knee replacement. Originally scheduled to be transferred to acute rehab unit but currently awaiting authorization and bed space. Patient denies any significant pain to the knee. Blisters to the distal knee continue to heal. Continues with physical therapy. No complaints of any chest pain/tightness. No calf pain. Pain Control: well controlled Exam/Review of Systems Vital Signs Vitals Vital Signs Date Time Temp Pulse Resp B/P Pulse Ox O2 Delivery O2 Flow Rate FiO2 12/11/16 07:47 98.9 95 16 99/57 97 12/11/16 00:54 Room Air Intake and Output 12/10/16 12/10/16 12/11/16 15:00 23:00 07:00 Intake Total 800 ml 1000 ml Output Total 1100 ml Balance 800 ml -100 ml Exam Free Text/Dictation -Incision: Clean, Dry and Intact without any redness or drainage but there is blister to the distal tip of the surgical wound. No signs of infection. Ecchymosis surrounding the wound but not directly on wound. -4/5 Tibialis Anterior, EHL Gastrocnemius/Soleus and Peroneals -Normal Sensation -Palpable DP/PT, Capillary Refill <2 secs -No Distal Edema -Negative Pasquale Sign/No calf pain -Toes Freely Movable Constitutional: alert, oriented, well developed Results Result Diagram: 12/10/16 0943 ROSALVA PENA PA-C Dec 11, 2016 08:53
--- NOTE | 2016-12-11 11:41 | CONS ---
Date/Time of Note Date/Time of Note DATE: 12/11/16 TIME: 11:38 Consult Date/Type/Reason Admit Date/Time Dec 06, 2016 at 06:01 Initial Consult Date 11/30/2016 Type of Consultation: internal medicine Reason for Consultation medical f/u anemia etc. Ordering Provider: AMAYA DUNN MD Subjective alert feeling better awaiting bed in acute rehab at [facility] Objective Vital Signs Date Time Temp Pulse Resp B/P Pulse Ox O2 Delivery O2 Flow Rate FiO2 12/11/16 07:47 98.9 95 16 99/57 97 12/11/16 00:54 Room Air Intake and Output 12/10/16 12/10/16 12/11/16 15:00 23:00 07:00 Intake Total 800 ml 1000 ml Output Total 1100 ml Balance 800 ml -100 ml Results/Medications Result Diagram: 12/10/16 0943 Results 24 hrs Laboratory Tests Test 12/11/16 08:15 White Blood Count Pending Red Blood Count Pending Hemoglobin Pending Hematocrit Pending Mean Corpuscular Volume Pending Mean Corpuscular Hemoglobin Pending Mean Corpuscular Hemoglobin Concent Pending Red Cell Distribution Width Pending Platelet Count Pending Mean Platelet Volume Pending Medications Current Medications Oxycodone HCl (Roxicodone) 20 mg Q3H PRN PO PAIN LEVEL 8-10; Start 12/06/16 at 13:30 Oxycodone HCl (Roxicodone) 10 mg Q3H PRN PO PAIN LEVEL 4-7 Last administered on 12/11/16 06:54; Admin Dose 10 MG; Start 12/06/16 at 13:30 Oxycodone HCl (Roxicodone) 5 mg Q3H PRN PO PAIN LEVEL 1-3 Last administered on 12/10/16 05:05; Admin Dose 5 MG; Start 12/06/16 at 13:30 Zolpidem Tartrate (Ambien) 5 mg HS PRN PO INSOMNIA; Start 12/06/16 at 13:30 Miscellaneous Information (Note) NOTE XX ; Start 12/06/16 at 13:30 Aspirin (Ecotrin) 325 mg BID PO Last administered on 12/11/16 08:28; Admin Dose 325 MG; Start 12/07/16 at 09:00 Celecoxib (Celebrex) 200 mg BID PO Last administered on 12/11/16 08:28; Admin Dose 200 MG; Start 12/07/16 at 09:00 Pantoprazole (Protonix Tab) 40 mg DAILY@06 PO Last administered on 12/11/16 06 :54; Admin Dose 40 MG; Start 12/08/16 at 06:00 Simethicone (Mylicon) 80 mg TID PRN PO DISTENSION/GAS/BLOATING; Start 12/06/16 at 13:30 Senna/Docusate Sodium (Senokot-S) 2 tab BID PRN PO CONSTIPATION Last administered on 12/10/16 20:18; Admin Dose 1 TAB; Start 12/06/16 at 13:30 Magnesium Hydroxide (Milk Of Mag) 30 ml HS PRN PO CONSTIPATION; Start 12/06/16 at 13:30 Bisacodyl (Dulcolax Supp) 10 mg DAILY PRN [place] CONSTIPATION; Start 12/06/16 at 13 :30 Sodium Biphosphate/ Sodium Phosphate (Fleet Enema) 133 ml DAILY PRN [place] CONSTIPATION; Start 12/06/16 at 13:30 Diphenhydramine HCl (Benadryl) 25 mg Q4H PRN IM ITCHING OR RASH; Start at 13:30 Naloxone HCl (Narcan) 0.2 mg Q2M PRN IV DECREASED REPIRATORY RATE; Start at 13:30 Ferrous Sulfate (Ferrous Sulfate (Ec)) 325 mg TID PO Last administered on 08:28; Admin Dose 325 MG; Start 12/06/16 at 21:00 Fish Oil (Fish Oil) 1,000 mg BID PO Last administered on 12/11/16 08:28; Admin Dose 1,000 MG; Start 12/09/16 at 09:00 Cephalexin (Keflex) 500 mg Q6 PO Last administered on 12/11/16 06:54; Admin Dose 500 MG; Start 12/10/16 at 18:00 Assessment/Plan Chief Complaint/Hosp Course post op total knee replacement right knee stable post op Problems: Additional Assessment/Plan patient ambulated twice with pt yesterday in view of underlying RA patient would beneefit greatly from acute rehab QUINTEN PEDROZA MD Dec 11, 2016 11:41
[2016-12-11 11:43] LABS: BASOPHILS % 0.3 % (0.0-2.0); EOSINOPHILS # 0.4 10^3/ul (0.0-0.5); EOSINOPHILS % 3.5 % (0.0-7.0); HEMATOCRIT 27.4 % (37.0-47.0); HEMOGLOBIN 8.5 g/dl (12.0-16.0); LYMPHOCYTES # 2.3 10^3/ul (0.8-2.9); LYMPHOCYTES % 22.6 % (15.0-51.0); MEAN CORPUSCULAR VOLUME 83.8 fl (82.0-101.0); MEAN PLATELET VOLUME 9.5 fl (7.4-10.4); MONOCYTES % 9.8 % (0.0-11.0); NEUTROPHILS % 63.3 % (39.0-77.0); PLATELET COUNT 399 10^3/UL (140-415); RED BLOOD COUNT 3.27 10^6/ul (4.20-5.40); RED CELL DISTRIBUTION WIDTH 18.8 % (11.5-14.5)
[2016-12-11 20:15] VITALS: BP 131/63; RESP 18
[2016-12-12] MEDS: CEPHALEXIN 500 MG CAP PO SCH ×3 (00:53→12:25)
[2016-12-12] MEDS: oxyCODONE 5 MG TAB PO PRN ×2 (00:54→06:13)
[2016-12-12 00:59] VITALS: BP 108/59; PULSE 90; RESP 18
[2016-12-12] MEDS: PANTOPRAZOLE (EC) 40 MG TAB PO SCH (06:12)
[2016-12-12 07:00] VITALS: BP 127/64; RESP 18
[2016-12-12 07:55] LABS: BASOPHILS % 0.2 % (0.0-2.0); EOSINOPHILS # 0.3 10^3/ul (0.0-0.5); HEMOGLOBIN 9.1 g/dl (12.0-16.0); LYMPHOCYTES # 1.8 10^3/ul (0.8-2.9); LYMPHOCYTES % 13.6 % (15.0-51.0); MEAN CORPUSCULAR HEMOGLOBIN 26.4 pg (29.0-33.0); MEAN CORPUSCULAR HGB CONC 31.4 g/dl (32.0-37.0); MEAN CORPUSCULAR VOLUME 84.1 fl (82.0-101.0); MEAN PLATELET VOLUME 8.9 fl (7.4-10.4); MONOCYTE # 1.2 10^3/ul (0.3-0.9); MONOCYTES % 8.9 % (0.0-11.0); NEUTROPHILS % 74.5 % (39.0-77.0); PLATELET COUNT 432 10^3/UL (140-415); RED BLOOD COUNT 3.45 10^6/ul (4.20-5.40); RED CELL DISTRIBUTION WIDTH 19.2 % (11.5-14.5); WHITE BLOOD COUNT 13.3 10^3/ul (4.8-10.8)
--- NOTE | 2016-12-12 07:57 | CONS ---
Date/Time of Note Date/Time of Note DATE: 12/12/16 TIME: 07:54 Consult Date/Type/Reason Admit Date/Time Dec 06, 2016 at 06:01 Initial Consult Date 11/30/2016 Type of Consultation: internal medicine Reason for Consultation medical f/u Ordering Provider: AMAYA DUNN MD Subjective alert did well ambulating should have a bed in acute rehab today Objective Vital Signs Date Time Temp Pulse Resp B/P Pulse Ox O2 Delivery O2 Flow Rate FiO2 12/12/16 00:59 98.1 90 18 108/59 98 Room Air Intake and Output 12/11/16 12/11/16 12/12/16 15:00 23:00 07:00 Intake Total 600 ml 850 ml Output Total 500 ml Balance 100 ml 850 ml Exam vss heent neg lungs clear heart regular rhythm abd,soft Results/Medications Result Diagram: 12/11/16 0815 Results 24 hrs Laboratory Tests Test 12/11/16 08:15 12/12/16 07:41 White Blood Count 10.0 Pending Red Blood Count 3.27 L Pending Hemoglobin 8.5 L Pending Hematocrit 27.4 L Pending Mean Corpuscular Volume 83.8 Pending Mean Corpuscular Hemoglobin 26.0 L Pending Mean Corpuscular Hemoglobin Concent 31.0 L Pending Red Cell Distribution Width 18.8 H Pending Platelet Count 399 Pending Mean Platelet Volume 9.5 Pending Neutrophils % 63.3 Lymphocytes % 22.6 Monocytes % 9.8 Eosinophils % 3.5 Basophils % 0.3 Nucleated Red Blood Cells % 0.0 Neutrophils # (Manual) 6 Lymphocytes # 2.3 Monocytes # 1.0 H Eosinophils # 0.4 Basophils # 0.0 Nucleated Red Blood Cells # 0.0 Medications Current Medications Oxycodone HCl (Roxicodone) 20 mg Q3H PRN PO PAIN LEVEL 8-10; Start 12/06/16 at 13:30 Oxycodone HCl (Roxicodone) 10 mg Q3H PRN PO PAIN LEVEL 4-7 Last administered on 12/12/16 06:13; Admin Dose 10 MG; Start 12/06/16 at 13:30 Oxycodone HCl (Roxicodone) 5 mg Q3H PRN PO PAIN LEVEL 1-3 Last administered on 12/10/16 05:05; Admin Dose 5 MG; Start 12/06/16 at 13:30 Zolpidem Tartrate (Ambien) 5 mg HS PRN PO INSOMNIA; Start 12/06/16 at 13:30 Miscellaneous Information (Note) NOTE XX ; Start 12/06/16 at 13:30 Aspirin (Ecotrin) 325 mg BID PO Last administered on 12/11/16 20:37; Admin Dose 325 MG; Start 12/07/16 at 09:00 Celecoxib (Celebrex) 200 mg BID PO Last administered on 12/11/16 20:36; Admin Dose 200 MG; Start 12/07/16 at 09:00 Pantoprazole (Protonix Tab) 40 mg DAILY@06 PO Last administered on 12/12/16 06 :12; Admin Dose 40 MG; Start 12/08/16 at 06:00 Simethicone (Mylicon) 80 mg TID PRN PO DISTENSION/GAS/BLOATING; Start 12/06/16 at 13:30 Senna/Docusate Sodium (Senokot-S) 2 tab BID PRN PO CONSTIPATION Last administered on 12/10/16 20:18; Admin Dose 1 TAB; Start 12/06/16 at 13:30 Magnesium Hydroxide (Milk Of Mag) 30 ml HS PRN PO CONSTIPATION; Start 12/06/16 at 13:30 Bisacodyl (Dulcolax Supp) 10 mg DAILY PRN [place] CONSTIPATION; Start 12/06/16 at 13 :30 Sodium Biphosphate/ Sodium Phosphate (Fleet Enema) 133 ml DAILY PRN [place] CONSTIPATION; Start 12/06/16 at 13:30 Diphenhydramine HCl (Benadryl) 25 mg Q4H PRN IM ITCHING OR RASH; Start at 13:30 Naloxone HCl (Narcan) 0.2 mg Q2M PRN IV DECREASED REPIRATORY RATE; Start at 13:30 Ferrous Sulfate (Ferrous Sulfate (Ec)) 325 mg TID PO Last administered on 20:37; Admin Dose 325 MG; Start 12/06/16 at 21:00 Fish Oil (Fish Oil) 1,000 mg BID PO Last administered on 12/11/16 20:37; Admin Dose 1,000 MG; Start 12/09/16 at 09:00 Cephalexin (Keflex) 500 mg Q6 PO Last administered on 12/12/16t 06:12; Admin Dose 500 MG; Start 12/10/16 at 18:00 Assessment/Plan Chief Complaint/Hosp Course post op total knee replacement right knee stable post op Problems: Additional Assessment/Plan plan to transfer to ARU today QUINTEN PEDROZA MD Dec 12, 2016 07:57
[2016-12-12] MEDS: FISH OIL 1,000 MG CAP PO SCH (08:40)
[2016-12-12] MEDS: CELECOXIB 200 MG CAP PO SCH (08:40)
[2016-12-12] MEDS: FERROUS SULFATE (EC) 325 MG TAB PO SCH ×2 (08:40→12:25)
[2016-12-12] MEDS: ASPIRIN (EC) 325 MG TAB PO SCH (08:40)
--- NOTE | 2016-12-12 08:58 | PN ---
Date/Time of Note Date/Time of Note DATE: 12/12/16 TIME: 08:49 Assessment/Plan VTE Prophylaxis VTE Prophylaxis Intervention: ambulation, SCD's, other (Aspirin 325 mg twice daily) Lines/Catheters IV Catheter Type (from Nrsg): Saline Lock Witt in Place (from Nrsg): Yes Assessment/Plan Assessment/Plan -Pain Meds as needed -Dress change performed today -ASA for DVT Prophylaxis x 6 weeks outpatient discussed. -Continue monitoring as outpatient on discharge -Follow-up at scheduled postop outpatient appointment or sooner if there is any issue. -Tegaderm dressings given with specific instructions to use as outpatient to keep wound dry until joie are moved around 10 days. -It was discussed directly with patient and patient's today that if she is stable, transfer will be had today as she has approval to be transferred to the acute rehab unit. They were made aware that she will be sharing a room with one and potentially to other people but the situation is temporary during her rehabilitation stay. MedSurg rooms are needed for patient that are immediately postop and transfer is the best option for her so she can continue with continued monitoring and improved functionality to the right knee status post total knee arthroplasty. -Patient Stable -Discharge to ARU Subjective 24 Hr Interval Summary 56-year-old female postop day 6 status post right total knee arthroplasty. Patient has approval for transfer to acute rehab facility but patient requested to stay an additional day so that she may be in a 2 bedroom as opposed to a 3 bedroom. She is up and walking, with difficulty, using front wheeled walker. Continues with weakness to the right knee. She states that her range of motion is improving with physical therapy. Denies any complications to the wound. Does have staying sensation at area of blisters and skin has de-roofed. Pain Control: well controlled Exam/Review of Systems Vital Signs Vitals Vital Signs Date Time Temp Pulse Resp B/P Pulse Ox O2 Delivery O2 Flow Rate FiO2 12/12/16 07:00 98.2 95 18 127/64 100 12/12/16 00:59 Room Air Intake and Output 12/11/16 12/11/16 12/12/16 15:00 23:00 07:00 Intake Total 600 ml 850 ml Output Total 500 ml Balance 100 ml 850 ml Exam Free Text/Dictation -Incision: Clean, Dry and Intact without any complication to the surgical wound. Ecchymosis surrounding surgical wound that is mild to moderate. Blistering also seen just distal and medial to the wound. No signs of infection. -4/5 Tibialis Anterior, EHL Gastrocnemius/Soleus and Peroneals -Normal Sensation -Palpable DP/PT, Capillary Refill <2 secs -No Distal Edema -Negative Pasquale Sign/No calf pain -Toes Freely Movable Constitutional: alert, oriented, well developed Results Result Diagram: 12/12/16 0741 ROSALVA PENA PA-C Dec 12, 2016 08:57
--- NOTE | 2016-12-13 09:05 | DS ---
Date/Time of Note Date/Time of Note DATE: 12/13/16 TIME: 09:02 Discharge Summary Admission/Discharge Info Admit Date/Time Dec 06, 2016 at 06:01 Discharge Date/Time Dec 12, 2016 at 13:36 Discharge Diagnosis Status right total knee arthroplasty Patient Condition: Stable Hospital Course On the day of admission, the patient underwent right total knee arthroplasty Intraoperative complications: None Postoperative complications: None The patient was given prophylactic antibiotics and anticoagulants. On the day of surgery and first postoperative day patient was started on gait training and was taught usual restrictions following knee replacement Suction drain removed on the first postoperative day and the dressings were changed. The wound was found to be clean and healing well. There was no sign of infection. Pain cocktail given. On the second postoperative day, patient continued with inpatient PT. Dressings were changed. Wound was found to be clean and healing well. No signs of infection. Pain cocktail given. Patient ended up staying an additional 6 postoperative days after surgery due to difficulty getting authorization from acute rehab unit as well as patient preferring to stay as she wants to be in a double room as opposed to a triple room. Discharge Temperature: 98.2 Discharge White Blood Cell Count: 13.3 Discharge Hemoglobin: 9.1 The patient was discharged acute rehab facility at [facility]. Arrangements were made for visiting nurses and home health/physical therapy. Tegaderm with pad also provided for patient. Instructions given on how to use to keep wound dry while showering. Patient may discontinue use of Tegaderm with pad after joie have been removed around 10 days postoperatively. The patient will be seen in office at scheduled postoperative evaluation date given on their preoperative exam. Should patient complain of any problems prior to scheduled postoperative evaluation date, they may call into outpatient clinic to determine if they need to be scheduled at sooner appointment to be seen immediately if needed. Discharge medications: As per medication reconciliation form Diet: Same as preadmission diet. This is Rosalva Pollock PA-C dictating discharge summary for Dr. Neo Andrade. Home Meds No Active Prescriptions or Reported Meds Follow-up Plan Follow-up in postoperative office at appointment date given at her preoperative examination. Primary Care Provider Not On Staff Doctor ROSALVA PENA PA-C Dec 13, 2016 09:05
--- NOTE | 2016-12-28 17:17 | OPR ---
DATE OF OPERATION: 12/06/2016 SURGEON: Dr. Neo Andrade. AIRBRUSH ARTIST PHOTOGRAPHY: . ANESTHESIOLOGIST: Dr. Lau. POSTOPERATIVE DIAGNOSES: 1. Exceedingly severe degenerative osteoarthritis of the right knee. 2. Exceedingly severe generalized osteoporosis of the right femur and tibia. 3. Hypoplastic patella. PROCEDURE: Right total knee replacement. FINDINGS OF SURGERY: The patient was found to have exceedingly severe osteoporosis of the knee which was obviously diagnosed from the preoperative x-rays. We knew preoperatively that we would need to use a revision type of total knee implant to get through this operation without fracturing the femur or tibia into multiple pieces, as well as to gives into intramedullary support to the implant components. The knee showed severe degenerative changes throughout. JUSTIFICATION FOR SURGERY: The patient was found to have end- stage osteoarthritis/inflammatory arthritis. The patient is a 56- year-old female, who has lifestyle is markedly affected by the arthritis of the knee. OPERATIVE PROCEDURE: Under epidural anesthetic with a light general anesthetic, the right leg was prepared and draped in the usual sterile fashion. Note, the patient was given intravenous antibiotics an hour prior to the surgery. She was taken to the operating room and given a light general anesthetic. The right leg, foot and ankle were prepared and draped in the usual sterile fashion. The center of the ankle was marked at the midpoint between the 2 malleoli with a sterile marking pen. A tourniquet around the right thigh was inflated to 250 mmHg and total tourniquet time was . A longitudinal incision was made over the anterior aspect of the knee. The incision extended from the tibial tubercle to a point above the patella. The medial capsule was exposed by sharp and blunt dissection and was incised a quarter of an inch medial to the patella. A marking stitch was set on each side of the incision at the midpoint to enable accurate reapproximation and the operation. A vastus split incision was made. Incision extended from the superior pole of the patella for approximately 5 cm between the line of the muscle fibers. Note that the patella was very thin, hyperplastic, osteoporotic fragile and any other similarly that might be used for the patella that was not going to be resurfaced because of a high chance of fracture even during handling. In any case, the patella was very small and prior to any incision being made on the x-ray prior to any possible bone cut being made on it. It is noted that the thickness of the patella with 17 mm. It was therefore chosen to leave the patella unresurfaced. Using the external alignment jig to set the alignment. The block of the alignment jig was attached to the proximal tibia. The bone was so soft that where we normally insert 2 pins to anchor the block we had to insert 4 pins. An oscillating saw was now used to remove an appropriate amount of bone from the proximal tibia with the healthy side being used to measure the cutting depths. Once the rotational alignment had been determined and ligaments found to be balanced. The femoral cutting block was secured to the distal femur with 2 Steinmann pins. The anterior and posterior cuts of the distal femur were made off the femoral cutting block. The cutting block was removed and a spacer block was now used to measure the flexion extension gap. The same spacer block was now used to determine the size of the flexion gap after the appropriate cuts had been made. The rest of the bone cuts were made using they provide provided instruments in the prescribed manner. As noted above it had been determined preoperatively to use stems on the tibial component and the femoral component. A revision system was used (PFC), combined with a Sigma system, instruments, and implants. Appropriately size stems were used on the femoral component and tibial component. The trial components were all assembled and appeared to fit very well. The trial components were removed. Cement restrictor plugs were then sewed inserted proximally and distally. The interior of the tibia was first thoroughly cleaned with the Waterpik and then dried. The tibial component was not set in place with methylmethacrylate cement. Once the tibial component was solidly cemented the same was carried out on the femoral side. The trial components were now all articulated and it appeared that using the 12.5 mm spacer insert was the appropriate size. This was installed and the knee was put through range of motion and found to be stable with full functional range of motion. The insert was removed. All extraneous cement had been removed. The wound was again thoroughly cleaned with pulsatile lavage with antibiotics. The final plastic bearing was not installed. Intraoperative x-ray was obtained of the knee in full extension while the cement was hardening to be sure that the 12.5 mm was the appropriate spacer block. A lateral release was not required for the patella to track. Knee was frequently irrigated with normal saline containing antibiotics with pulsatile lavage throughout the entire operation as a prophylax against infection. Once the cement was hard the tourniquet was released. Bleeding points were cauterized. The total tourniquet time was . Once the final rotating bearing weight had been installed. Superficial Hemovac drains were placed. The wound was closed using interrupted Vicryl in the capsule with FiberWire used at strategic points for reinforcement. The rest of the medial capsule was closed with interrupted Vicryl. A subcuticular interrupted stitch was placed throughout and then the skin was closed using joie. The usual sterile dressings were applied. The patient left the operating room and reached the recovery room in good and stable condition. Peripheral pulses were normal. Vital signs remained stable throughout. X-rays obtained in the recovery room. Calf pumps were applied to both legs in the operating room. There were no problems or complications as far as we know. Sponge counts and instrument counts were correct. Component information see the log sheet in the chart. Dictated By: Neo Andrade MD /dolores/sachin /Document#: [id number]
== END 2016-12-12 13:36 | DRG 470 ==
LOC: REC 06:01 → MS1 15:08
PROC: 0SRC0J9 Replacement of Right Knee Joint with Synthetic Substitute, Cemented, Open Approach (ICD-10-PCS; principal; 2016-12-06 07:30)
PROC: 30233N1 Transfusion of Nonautologous Red Blood Cells into Peripheral Vein, Percutaneous Approach (ICD-10-PCS; 2016-12-07)
DX: M17.11 Unilateral primary osteoarthritis, right knee (principal); D62 Acute posthemorrhagic anemia; M06.9 Rheumatoid arthritis, unspecified; D50.9 Iron deficiency anemia, unspecified; D63.8 Anemia in other chronic diseases classified elsewhere; M81.0 Age-related osteoporosis without current pathological fracture; N95.1 Menopausal and female climacteric states; Z99.3 Dependence on wheelchair; Q74.1 Congenital malformation of knee
CPT/HCPCS: 36430; 73560; 81001; 81003; 85014; 85018; 85025; 86850; 86900; 86901; 86920; 87070; 87075; 87086; 97110; 97116; 97162; 97166; 97530; C1776; J0131; J0360; J0690; J0735; J1100; J1885; J2250; J2274; J2370; J2405; J2710; J2795; J2916; J3010; J3370; J7121; P9016

== ENCOUNTER 2016-12-12 11:09 | Inpatient (IN) | payer BC ==
[~2016-12-12] VITALS: Ht 157.5 cm; Wt 53.3 kg
[2016-12-12 14:00] VITALS: Ht 157.5 cm; Wt 53.3 kg
[2016-12-12] MEDS ORDERED: ZOLPIDEM 5 MG TAB PO PRN (15:00)
[2016-12-12 17:00] VITALS: BP 125/75; PULSE 88; RESP 18
[2016-12-12] MEDS: HYDROCODONE/APAP (10/325) TAB PO PRN (18:06)
[2016-12-12 19:18] LABS: ADD UMIC NO; UR ASCORBIC ACID 40 mg/dL (NEGATIVE); UR BILIRUBIN (Dip) NEGATIVE (NEGATIVE); UR BLOOD (Dip) NEGATIVE (NEGATIVE); UR CLARITY SLIGHTLY CLOUDY (CLEAR); UR COLOR YELLOW (YELLOW); UR GLUCOSE (Dip) NEGATIVE (NEGATIVE); UR KETONES (Dip) NEGATIVE (NEGATIVE); UR LEUKOCYTE ESTERASE (Dip) NEGATIVE Leu/ul (NEGATIVE); UR NITRITE (Dip) NEGATIVE (NEGATIVE); UR RBC 1 /HPF (0-5); UR TOTAL PROTEIN (Dip) NEGATIVE (NEGATIVE); UR UROBILINOGEN (Dip) NEGATIVE (NEGATIVE)
[2016-12-12] MEDS ORDERED: oxyCODONE 5 MG TAB PO PRN (19:30)
[2016-12-12] MEDS: CEPHALEXIN 500 MG CAP PO SCH (20:57)
[2016-12-12] MEDS: ASPIRIN (EC) 325 MG TAB PO SCH (20:58)
[2016-12-12] MEDS: GABAPENTIN 100 MG CAP PO SCH (20:58)
[2016-12-12] MEDS: CELECOXIB 100 MG CAP PO SCH (20:58)
[2016-12-12] MEDS ORDERED: CEPHALEXIN 500 MG CAP PO SCH (21:00)
[2016-12-12 21:24] VITALS: BP 111/61; RESP 18
[2016-12-12] MEDS: oxyCODONE 5 MG TAB PO PRN (21:59)
[2016-12-13] MEDS: CEPHALEXIN 500 MG CAP PO SCH ×5 (00:48→23:18)
[2016-12-13 02:00] VITALS: BP 118/67; RESP 18
[2016-12-13] MEDS: oxyCODONE 5 MG TAB PO PRN ×2 (06:34→21:16)
[2016-12-13 07:30] VITALS: BP 124/59; RESP 20
[2016-12-13 07:40] LABS: BASOPHILS % 0.4 % (0.0-2.0); EOSINOPHILS # 0.3 10^3/ul (0.0-0.5); EOSINOPHILS % 3.4 % (0.0-7.0); HEMOGLOBIN 8.8 g/dl (12.0-16.0); LYMPHOCYTES % 20.1 % (15.0-51.0); MEAN CORPUSCULAR HEMOGLOBIN 25.7 pg (29.0-33.0); MEAN CORPUSCULAR HGB CONC 30.3 g/dl (32.0-37.0); MEAN CORPUSCULAR VOLUME 84.8 fl (82.0-101.0); MEAN PLATELET VOLUME 9.3 fl (7.4-10.4); MONOCYTE # 1.1 10^3/ul (0.3-0.9); MONOCYTES % 11.2 % (0.0-11.0); PLATELET COUNT 491 10^3/UL (140-415); RED BLOOD COUNT 3.42 10^6/ul (4.20-5.40); RED CELL DISTRIBUTION WIDTH 19.8 % (11.5-14.5)
[2016-12-13 08:26] LABS: CALCIUM 9.2 mg/dl (8.4-10.2); CREATININE 0.5 mg/dl (0.44-1.00); POTASSIUM 4.5 mmol/L (3.5-5.1)
[2016-12-13] MEDS: HYDROCODONE/APAP (10/325) TAB PO PRN ×2 (09:11→16:06)
[2016-12-13] MEDS: ASPIRIN (EC) 325 MG TAB PO SCH ×2 (09:11→21:08)
[2016-12-13] MEDS: GABAPENTIN 100 MG CAP PO SCH ×2 (09:11→21:09)
[2016-12-13] MEDS: CELECOXIB 100 MG CAP PO SCH ×2 (09:11→21:08)
--- NOTE | 2016-12-13 09:11 | PN ---
Date/Time of Note Date/Time of Note DATE: 12/13/16 TIME: 09:06 Assessment/Plan VTE Prophylaxis VTE Prophylaxis Intervention: ambulation, SCD's, other (Aspirin 325 mg twice daily) Assessment/Plan Assessment/Plan * Continue with rehab. Expected time of stay is 1-2 weeks depending on improvement. Potential discharge after 1 week if patient has improved strength , gait training is successful with walking throughout room and/or walking up and down the hallways. Improvement in climbing and descending stairs. Ability for range of motion up to 90-100 while in acute rehab currently is the intended goal. We do realize that patient does have significantly osteoporotic bone and rheumatoid arthritis so there is expected difficulty in regards to improve functionality. Realistic goal as we do not expect patient to have full range of motion due to extensive osteoporotic bone and patient was made aware that but if patient's range of motion can improve ideally up to 100-120 I would be considered a success as well as ability to walk throughout the hallways comfortably and ability to climb up and down stairs as needed. * Patient may continue with oxycodone as needed for pain and rehab facility. Patient may continue with celecoxib 100 mg, gabapentin 100 mg, aspirin 325 mg with dictated regimen. She may also continue at home medications especially her iron pills as she has pre-existing iron deficiency anemia. * Discussed with nurse today regarding medication as well as order for supplier quality specialist to 10 the patient especially as she has had blistering surrounding the wound status post surgery. Subjective 24 Hr Interval Summary Free Text/Dictation 56-year-old female postop day 7 and first stay in acute rehab unit after being transferred yesterday evening. Patient is doing well. No pain complaints today. Patient is currently taking oxycodone as needed for pain medication. In regards to the right knee patient states that she is doing well. She is currently in knee immobilizer while at rest. Patient had extended osteoporotic bone during surgery and therefore acute rehab unit was suggested for ongoing monitoring and improve functionality. Patient also experienced blistering to the wound and which wound care will be tending to patient while in rehab unit for ongoing monitoring. Exam/Review of Systems Vital Signs Vitals Vital Signs Date Time Temp Pulse Resp B/P Pulse Ox O2 Delivery O2 Flow Rate FiO2 12/13/16 02:00 98.7 87 18 118/67 93 12/12/16 17:00 Room Air Intake and Output 12/12/16 12/12/16 12/13/16 15:00 23:00 07:00 Intake Total 400 ml 790 ml Balance 400 ml 790 ml Exam Currently lying in bed comfortably with knee immobilizer. Toes freely movable. No pain complaints on exam. Constitutional: alert, oriented Results Result Diagram: 12/13/16 0634 12/13/16 0634 Results 24 hrs Laboratory Tests Test 12/12/16 19:00 12/13/16 06:34 Urine Color YELLOW Urine Clarity SLIGHTLY CLOUDY A Urine pH 8.0 Urine Specific Drift 1.010 Urine Ketones NEGATIVE Urine Nitrite NEGATIVE Urine Bilirubin NEGATIVE Urine Urobilinogen NEGATIVE Urine Leukocyte Esterase NEGATIVE Urine Microscopic RBC 1 Urine Microscopic WBC 0 Urine Hemoglobin NEGATIVE Urine Glucose NEGATIVE Urine Total Protein NEGATIVE White Blood Count 10.0 # Red Blood Count 3.42 L Hemoglobin 8.8 L Hematocrit 29.0 L Mean Corpuscular Volume 84.8 Mean Corpuscular Hemoglobin 25.7 L Mean Corpuscular Hemoglobin Concent 30.3 L Red Cell Distribution Width 19.8 H Platelet Count 491 H Mean Platelet Volume 9.3 Neutrophils % 64.0 Lymphocytes % 20.1 Monocytes % 11.2 H Eosinophils % 3.4 Basophils % 0.4 Nucleated Red Blood Cells % 0.0 Neutrophils # (Manual) 6 Lymphocytes # 2.0 Monocytes # 1.1 H Eosinophils # 0.3 Basophils # 0.0 Nucleated Red Blood Cells # 0.0 Sodium Level 138 Potassium Level 4.5 Chloride Level 99 Carbon Dioxide Level 32 H Anion Gap 12 Blood Urea Nitrogen 16 Creatinine 0.50 Glucose Level 85 Calcium Level 9.2 Medications Medications Current Medications Acetaminophen/ Hydrocodone Bitart ([place] (10/325)) 1 tab Q4H PRN PO PAIN Last administered on 12/12/16 18:06; Admin Dose 1 TAB; Start 12/12/16 at 15:00 Zolpidem Tartrate (Ambien) 5 mg HS PRN PO INSOMNIA; Start 12/12/16 at 15:00 Aspirin (Ecotrin) 325 mg BID PO Last administered on 12/12/16 20:58; Admin Dose 325 MG; Start 12/12/16 at 21:00 Gabapentin (Neurontin) 100 mg BID PO Last administered on 12/12/16 20:58; Admin Dose 100 MG; Start 12/12/16 at 21:00 Celecoxib (Celebrex) 100 mg BID PO Last administered on 12/12/16 20:58; Admin Dose 100 MG; Start 12/12/16 at 21:00 Oxycodone HCl (Roxicodone) 5 mg Q4H PRN PO PAIN; Start 12/12/16 at 19:30 Oxycodone HCl (Roxicodone) 10 mg Q4H PRN PO PAIN Last administered on 06:34; Admin Dose 10 MG; Start 12/12/16 at 19:30 Cephalexin (Keflex) 500 mg Q6 PO Last administered on 12/13/16 06:33; Admin Dose 500 MG; Start 12/12/16 at 21:00; Stop 12/19/16 at 12:01 ROSALVA PENA PA-C Dec 13, 2016 09:11
[2016-12-13] MEDS: FISH OIL 1,000 MG CAP PO SCH ×2 (12:06→21:09)
[2016-12-13] MEDS: FERROUS SULFATE (EC) 325 MG TAB PO SCH ×2 (12:06→21:08)
--- NOTE | 2016-12-13 12:44 | CONS ---
DATE OF ADMISSION: 12/12/2016 DATE OF CONSULTATION: 12/13/2016 Rehabilitation Post Admission Physician Evaluation. REHABILITATION IMPAIRMENT CATEGORY: Rheumatoid arthritis affecting multiple joints status post right total knee arthroplasty. ACTIVE COMORBIDITIES: 1. Acute pain syndrome. 2. Anemia. 3. Impairments in self-care and mobility. HISTORY OF PRESENT ILLNESS: Patient is a pleasant 56-year-old female with a history of rheumatoid arthritis affecting multiple joints who has been noting bilateral worsening knee pain despite conservative measures. Patient underwent a right total knee replacement with postoperative course notable for anemia in addition to significant impairments in self-care and mobility. The patient has been cleared to transfer to the rehabilitation unit for comprehensive interdisciplinary rehab care. FUNCTIONAL HISTORY: Prior to recent events the patient was independent in self-care tasks and mobility. Currently, patient requires moderate assist for self-care and mobility tasks. I have reviewed the preadmission screen and patient's current functional status is consistent with the preadmission screen. SOCIAL HISTORY: Patient lives at home and hopes to return there upon discharge. PAST MEDICAL HISTORY: 1. Rheumatoid arthritis affecting multiple joints. 2. Chronic anemia. MEDICATION: 1. Aspirin 325 p.o. b.i.d. 2. [place] p.r.n. 3. Restoril p.r.n. 4. Gabapentin 100 mg p.o. b.i.d. ALLERGIES: PATIENT WITH NO KNOWN DRUG ALLERGIES. PHYSICAL EXAMINATION: VITAL SIGNS: Patient is currently afebrile with stable vital signs. HEENT: The extraocular motions are intact. Oropharynx clear. NECK: Supple. LUNGS: Clear anteriorly. HEART: S1, S2. ABDOMEN: Soft, nontender. Positive bowel sounds. NEUROLOGIC: She is awake, alert, and oriented x3. She can follow simple 1 step commands. Cranial nerves are grossly intact. She has good strength in bilateral upper extremity and left lower extremity. Dorsiflexion, plantar flexion, intact on the right. Patient with notable rheumatic changes affecting bilateral hands, knees, feet. PLAN: Patient has been admitted for comprehensive interdisciplinary acute rehab and is anticipated to tolerate 3 hours of daily therapy in divided doses for at least 5 out of 7 days a week. The treatment plan will include: 1. Physical therapy to focus on bed mobility, transfers and household ambulation with goal of having patient reach a standby assist level. 2. Occupational therapy to focus on hygiene, grooming, dressing, bathing and toileting activities with goal to have patient reach standby assist level. 3. Rehabilitation nursing for carry over of therapeutic interventions. The goal of continent to bowel and bladder, and the goal of pain adequately managed on oral medications. Rehabilitation barrier pain. Intervention for barrier interdisciplinary approach. Estimated length of stay: 10 days Disposition goal: Home I acknowledged I performed a full physical examination on this patient within 24 hours of admission to the rehabilitation unit and believe the patient is a good candidate for comprehensive interdisciplinary rehab care and is anticipated to make reasonable goals in a reasonable period of time as outlined above. Dictated By: Marlen Montez MD /dolores/delano /Document#: [id number] PAULO
--- NOTE | 2016-12-13 13:25 | HP ---
Date/Time of Note Date/Time of Note DATE: 12/13/16 TIME: 13:17 Assessment/Plan VTE Prophylaxis VTE Prophylaxis Intervention: other Assessment/Plan Problems: (1) Status post total right knee replacement Status: Acute Comment: She is in the process of going through formalized rehabilitation in the acute rehabilitation unit. I would rehabilitation potential should be viewed as fair to good; continue treatment aggressive (2) Osteoporosis Status: Chronic Comment: Noted. Please be aware that she has declined more formalized traditional Western treatments. Qualifiers: Presence of current pathological fracture: without current pathological fracture (3) Iron deficiency anemia Status: Chronic Comment: Check labs Qualifiers: Iron deficiency anemia type: unspecified iron deficiency Qualified Code: D50.9 - Iron deficiency anemia, unspecified iron deficiency anemia type (4) Postoperative anemia Status: Acute Comment: Follow this along as we correct the iron deficiency (5) Osteoarthritis Status: Chronic Comment: Well with usage of celecoxib in the postoperative phase Qualifiers: Osteoarthritis location: multiple joints (6) Rheumatoid arthritis Status: Chronic Comment: Stable to the patient is not on any disease modifying agents by her own choice. 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 She is now transferred to the acute rehabilitation unit for continued care and rehabilitation to gain independence. She is without specific complaints ROS Constitutional: no complaints (Denies fevers chills or sweats) Eyes: no complaints ENT: no complaints Respiratory: no complaints Cardiovascular: no complaints Gastrointestinal: no complaints Genitourinary: no complaints Musculoskeletal: other (Pain in the operated knee. Please note that she reports her other aches and pains are remarkably improved since she is on Celebrex) Neurologic: no complaints PMH/Family/Social Past Medical History Rheumatoid arthritis-polyarticular; osteoporosis; iron deficiency anemia Past Surgical History Status post right total knee replacement Family History Significant Family History: heart disease, diabetes, other (Positive lung cancer) Social History Alcohol Use: none Smoking Status: Never smoker Drug Use: none Exam/Review of Systems Vital Signs Vitals Vital Signs Date Time Temp Pulse Resp B/P Pulse Ox O2 Delivery O2 Flow Rate FiO2 12/13/16 07:30 98.5 92 20 124/59 98 12/12/16 17:00 Room Air Intake and Output 12/12/16 12/12/16 12/13/16 15:00 23:00 07:00 Intake Total 400 ml 790 ml Balance 400 ml 790 ml Exam Constitutional: alert, oriented Eyes: EOMI, nl conjunctiva, nl lids, nl sclera Neck: non-tender, supple Respiratory: clear to auscultation, normal air movement Cardiovascular: nl pulses, regular rate and rhythm Gastrointestinal: nl liver, spleen, non-tender, soft Extremities: normal pulses, other (Right leg in CPM machine; rheumatoid deformities of both) Neurological: SHANK CARRIER II-XII intact, nl mental status, nl speech, nl strength Labs Result Diagram: 12/13/1663312/13/16633 Medications Medications Current Medications Acetaminophen/ Hydrocodone Bitart ([place] (10/325)) 1 tab Q4H PRN PO PAIN Last administered on 12/13/16 09:11; Admin Dose 1 TAB; Start 12/12/16 at 15:00 Zolpidem Tartrate (Ambien) 5 mg HS PRN PO INSOMNIA; Start 12/12/16 at 15:00 Aspirin (Ecotrin) 325 mg BID PO Last administered on 12/13/16 09:11; Admin Dose 325 MG; Start 12/12/16 at 21:00 Gabapentin (Neurontin) 100 mg BID PO Last administered on 12/13/16 09:11; Admin Dose 100 MG; Start 12/12/16 at 21:00 Celecoxib (Celebrex) 100 mg BID PO Last administered on 12/13/16 09:11; Admin Dose 100 MG; Start 12/12/16 at 21:00 Oxycodone HCl (Roxicodone) 5 mg Q4H PRN PO PAIN; Start 12/12/16 at 19:30 Oxycodone HCl (Roxicodone) 10 mg Q4H PRN PO PAIN Last administered on 06:34; Admin Dose 10 MG; Start 12/12/16 at 19:30 Cephalexin (Keflex) 500 mg Q6 PO Last administered on 12/13/16 12:06; Admin Dose 500 MG; Start 12/12/16 at 21:00; Stop 12/19/16 at 12:01 Fish Oil (Fish Oil) 1,000 mg BID PO Last administered on 12/13/16 12:06; Admin Dose 1,000 MG; Start 12/13/16 at 11:00 Ferrous Sulfate (Ferrous Sulfate (Ec)) 325 mg TID PO Last administered on 12:06; Admin Dose 325 MG; Start 12/13/16 at 13:00 CORRY SCHRADER MD Dec 13, 2016 13:24
[2016-12-13 13:53] LABS: IRON 38 ug/dl (35-150)
[2016-12-13 14:02] LABS: TOTAL IRON BINDING CAPACITY 237 ug/dl (241-421)
[2016-12-13] MEDS ORDERED: MAGNESIUM HYDROXIDE 30ML CUP PO PRN (14:30)
[2016-12-13] MEDS ORDERED: ACETAMINOPHEN 325 MG TAB PO PRN (14:30)
[2016-12-13] MEDS ORDERED: BISACODYL 10 MG SUPP PR PRN (14:30)
[2016-12-13] MEDS ORDERED: LACTULOSE 30ML CUP PO PRN (14:30)
[2016-12-13 20:00] VITALS: BP 101/61; RESP 18
[2016-12-13] MEDS ORDERED: SENNA TAB PO SCH (21:00)
[2016-12-13] MEDS: DOCUSATE SODIUM 100 MG CAP PO SCH (21:08)
[2016-12-14] MEDS: CEPHALEXIN 500 MG CAP PO SCH ×3 (05:11→17:35)
[2016-12-14] MEDS: oxyCODONE 5 MG TAB PO PRN ×3 (05:12→20:32)
[2016-12-14 07:45] VITALS: BP 96/55; RESP 18
[2016-12-14] MEDS: DOCUSATE SODIUM 100 MG CAP PO SCH ×2 (09:00→20:26)
[2016-12-14] MEDS: FISH OIL 1,000 MG CAP PO SCH ×2 (09:17→20:26)
[2016-12-14] MEDS: GABAPENTIN 100 MG CAP PO SCH ×2 (09:17→20:27)
[2016-12-14] MEDS: ASPIRIN (EC) 325 MG TAB PO SCH ×2 (09:17→20:26)
[2016-12-14] MEDS: FERROUS SULFATE (EC) 325 MG TAB PO SCH ×3 (09:17→20:26)
[2016-12-14] MEDS: CELECOXIB 100 MG CAP PO SCH ×2 (09:17→20:26)
--- NOTE | 2016-12-14 11:58 | CONS ---
Date/Time of Note Date/Time of Note DATE: 12/14/16 TIME: 11:58 Consult Date/Type/Reason Admit Date/Time Dec 12, 2016 at 14:12 Initial Consult Date Subjective Comfortable Objective pulm-cta min assist Vital Signs Date Time Temp Pulse Resp B/P Pulse Ox O2 Delivery O2 Flow Rate FiO2 12/14/16 07:45 98.5 84 18 96/55 95 12/12/16 17:00 Room Air Intake and Output 12/13/16 12/13/16 12/14/16 15:00 23:00 07:00 Intake Total 680 ml 550 ml Balance 680 ml 550 ml Results/Medications Result Diagram: 12/13/16 0634 12/13/16 0634 Medications Current Medications Acetaminophen/ Hydrocodone Bitart ([place] (10/325)) 1 tab Q4H PRN PO PAIN Last administered on 12/13/16 16:06; Admin Dose 1 TAB; Start 12/12/16 at 15:00 Zolpidem Tartrate (Ambien) 5 mg HS PRN PO INSOMNIA; Start 12/12/16 at 15:00 Aspirin (Ecotrin) 325 mg BID PO Last administered on 12/14/16 09:17; Admin Dose 325 MG; Start 12/12/16 at 21:00 Gabapentin (Neurontin) 100 mg BID PO Last administered on 12/14/16 09:17; Admin Dose 100 MG; Start 12/12/16 at 21:00 Celecoxib (Celebrex) 100 mg BID PO Last administered on 12/14/16 09:17; Admin Dose 100 MG; Start 12/12/16 at 21:00 Oxycodone HCl (Roxicodone) 5 mg Q4H PRN PO PAIN; Start 12/12/16 at 19:30 Oxycodone HCl (Roxicodone) 10 mg Q4H PRN PO PAIN Last administered on 10:52; Admin Dose 10 MG; Start 12/12/16 at 19:30 Cephalexin (Keflex) 500 mg Q6 PO Last administered on 12/14/16 05:11; Admin Dose 500 MG; Start 12/12/16 at 21:00; Stop 12/19/16 at 12:01 Fish Oil (Fish Oil) 1,000 mg BID PO Last administered on 12/14/16 09:17; Admin Dose 1,000 MG; Start 12/13/16 at 11:00 Ferrous Sulfate (Ferrous Sulfate (Ec)) 325 mg TID PO Last administered on 09:17; Admin Dose 325 MG; Start 12/13/16 at 13:00 Docusate Sodium (Colace) 100 mg BID PO Last administered on 12/13/16 21:08; Admin Dose 100 MG; Start 12/13/16 at 21:00 Acetaminophen (Tylenol Tab) 325 mg Q4H PRN PO PAIN AND OR ELEVATED TEMP; Start 12/13/16 at 14:30 Bisacodyl (Dulcolax Supp) 10 mg DAILY PRN [place] CONSTIPATION; Start 12/13/16 at 14 :30 Magnesium Hydroxide (Milk Of Mag) 30 ml DAILY PRN PO CONSTIPATION; Start at 14:30 Lactulose (Enulose) 20 gm DAILY PRN PO CONSTIPATION; Start 12/13/16 at 14:30 Senna (Senokot) 1 tab HS PO ; Start 12/14/16 at 21:00 Assessment/Plan Additional Assessment/Plan Rehab- Rheumatoid arthritis affecting multiple joints status post right total knee arthroplasty. Continue rehab therapies Acute pain syndrome. Anemia. JOE FERRERA MD Dec 14, 2016 11:58
[2016-12-14] MEDS: SILVER SULFADIAZINE 1% 25 GM CR TOP SCH (14:00)
--- NOTE | 2016-12-14 14:06 | PN ---
Date/Time of Note Date/Time of Note DATE: 12/14/16 TIME: 14:04 Assessment/Plan VTE Prophylaxis VTE Prophylaxis Intervention: anti-embolic stocking Lines/Catheters Urinary Cath still in place: No Assessment/Plan Problems: (1) Status post total right knee replacement Status: Acute Comment: Continue with rehabilitative care. Patient is progressing (2) Iron deficiency anemia Status: Chronic Comment: Continue with oral iron replacement therapy. Please not have included an end date to the oral supplementation Qualifiers: Iron deficiency anemia type: unspecified iron deficiency Qualified Code: D50.9 - Iron deficiency anemia, unspecified iron deficiency anemia type (3) Osteoarthritis Status: Chronic Comment: Noted. The patient is recuperating Qualifiers: Osteoarthritis location: multiple joints Osteoarthritis type: primary Qualified Code: M15.0 - Primary osteoarthritis involving multiple joints (4) Rheumatoid arthritis Status: Chronic Comment: Noted. Patient declines more traditional disease modifying and remitting agent Qualifiers: Rheumatoid arthritis location: multiple sites Rheumatoid factor presence: with rheumatoid factor Qualified Code: M05.79 - Rheumatoid arthritis involving multiple sites with positive rheumatoid factor (5) Osteoporosis Status: Chronic Comment: Patient declines therapeutic intervention Qualifiers: Presence of current pathological fracture: without current pathological fracture Subjective 24 Hr Interval Summary Free Text/Dictation Patient reports she is not having any complaints of although she is concerned for the blister on her operated leg Constitutional: no complaints Cardiovascular: no complaints Gastrointestinal: no complaints Exam/Review of Systems Vital Signs Vitals Vital Signs Date Time Temp Pulse Resp B/P Pulse Ox O2 Delivery O2 Flow Rate FiO2 12/14/16 07:45 98.5 84 18 96/55 95 12/12/16 17:00 Room Air Intake and Output 12/13/16 12/13/16 12/14/16 15:00 23:00 07:00 Intake Total 680 ml 550 ml Balance 680 ml 550 ml Exam Constitutional: alert, oriented Neck: non-tender, supple Respiratory: clear to auscultation, normal air movement Cardiovascular: nl pulses, regular rate and rhythm Results Result Diagram: 12/13/16 0634 12/13/16 0634 Medications Medications Current Medications Acetaminophen/ Hydrocodone Bitart ([place] (10/325)) 1 tab Q4H PRN PO PAIN Last administered on 12/13/16t 16:06; Admin Dose 1 TAB; Start 12/12/16 at 15:00 Zolpidem Tartrate (Ambien) 5 mg HS PRN PO INSOMNIA; Start 12/12/16 at 15:00 Aspirin (Ecotrin) 325 mg BID PO Last administered on 12/14/16 09:17; Admin Dose 325 MG; Start 12/12/16 at 21:00 Gabapentin (Neurontin) 100 mg BID PO Last administered on 12/14/16 09:17; Admin Dose 100 MG; Start 12/12/16 at 21:00 Celecoxib (Celebrex) 100 mg BID PO Last administered on 12/14/16 09:17; Admin Dose 100 MG; Start 12/12/16 at 21:00 Oxycodone HCl (Roxicodone) 5 mg Q4H PRN PO PAIN; Start 12/12/16 at 19:30 Oxycodone HCl (Roxicodone) 10 mg Q4H PRN PO PAIN Last administered on 10:52; Admin Dose 10 MG; Start 12/12/16 at 19:30 Cephalexin (Keflex) 500 mg Q6 PO Last administered on 12/14/16 12:13; Admin Dose 500 MG; Start 12/12/16 at 21:00; Stop 12/19/16 at 12:01 Fish Oil (Fish Oil) 1,000 mg BID PO Last administered on 12/14/16 09:17; Admin Dose 1,000 MG; Start 12/13/16 at 11:00 Ferrous Sulfate (Ferrous Sulfate (Ec)) 325 mg TID PO Last administered on 13:25; Admin Dose 325 MG; Start 12/13/16 at 13:00 Docusate Sodium (Colace) 100 mg BID PO Last administered on 12/13/16 21:08; Admin Dose 100 MG; Start 12/13/16 at 21:00 Acetaminophen (Tylenol Tab) 325 mg Q4H PRN PO PAIN AND OR ELEVATED TEMP; Start 12/13/16 at 14:30 Bisacodyl (Dulcolax Supp) 10 mg DAILY PRN [place] CONSTIPATION; Start 12/13/16 at 14 :30 Magnesium Hydroxide (Milk Of Mag) 30 ml DAILY PRN PO CONSTIPATION; Start at 14:30 Lactulose (Enulose) 20 gm DAILY PRN PO CONSTIPATION; Start 8/24/17 at 14:30 Senna (Senokot) 1 tab HS PO ; Start 12/14/16 at 21:00 Silver Sulfadiazine (Thermazene 1% 25 Gm) 1 applic DAILY TOP ; Start 12/14/16 at 14:00 CORRY SCHRADER MD Dec 14, 2016 14:06
[2016-12-14 20:00] VITALS: BP 102/54; RESP 18
[2016-12-14] MEDS: SENNA TAB PO SCH (20:26)
[2016-12-15] MEDS: CEPHALEXIN 500 MG CAP PO SCH ×4 (06:56→17:39)
[2016-12-15 07:30] VITALS: BP 120/69; RESP 20
[2016-12-15] MEDS: GABAPENTIN 100 MG CAP PO SCH ×2 (08:25→21:10)
[2016-12-15] MEDS: FISH OIL 1,000 MG CAP PO SCH ×2 (08:26→21:09)
[2016-12-15] MEDS: FERROUS SULFATE (EC) 325 MG TAB PO SCH ×3 (08:26→21:10)
[2016-12-15] MEDS: ASPIRIN (EC) 325 MG TAB PO SCH ×2 (08:26→21:10)
[2016-12-15] MEDS: DOCUSATE SODIUM 100 MG CAP PO SCH ×2 (08:26→21:10)
[2016-12-15] MEDS: CELECOXIB 100 MG CAP PO SCH ×2 (08:29→21:10)
[2016-12-15] MEDS: SILVER SULFADIAZINE 1% 25 GM CR TOP SCH ×2 (09:00→10:33)
[2016-12-15] MEDS: HYDROCODONE/APAP (10/325) TAB PO PRN ×2 (10:17→17:40)
--- NOTE | 2016-12-15 10:33 | CONS ---
Date/Time of Note Date/Time of Note DATE: 12/15/16 TIME: 10:32 Consult Date/Type/Reason Admit Date/Time Dec 12, 2016 at 14:12 Subjective Doing well Objective pulm-cta min assist ambulation Vital Signs Date Time Temp Pulse Resp B/P Pulse Ox O2 Delivery O2 Flow Rate FiO2 12/15/16 07:30 98.6 89 20 120/69 98 12/12/16 17:00 Room Air Intake and Output 12/14/16 12/14/16 12/15/16 15:00 23:00 07:00 Intake Total 1050 ml 500 ml Balance 1050 ml 500 ml Results/Medications Result Diagram: 12/13/16 0634 12/13/16 0634 Medications Current Medications Acetaminophen/ Hydrocodone Bitart ([place] (10/325)) 1 tab Q4H PRN PO PAIN Last administered on 12/15/16 10:17; Admin Dose 1 TAB; Start 12/12/16 at 15:00 Zolpidem Tartrate (Ambien) 5 mg HS PRN PO INSOMNIA; Start 12/12/16 at 15:00 Aspirin (Ecotrin) 325 mg BID PO Last administered on 12/15/16 08:26; Admin Dose 325 MG; Start 12/12/16 at 21:00 Gabapentin (Neurontin) 100 mg BID PO Last administered on 12/15/16 08:25; Admin Dose 100 MG; Start 12/12/16 at 21:00 Celecoxib (Celebrex) 100 mg BID PO Last administered on 12/15/16 08:29; Admin Dose 100 MG; Start 12/12/16 at 21:00 Oxycodone HCl (Roxicodone) 5 mg Q4H PRN PO PAIN; Start 12/12/16 at 19:30 Oxycodone HCl (Roxicodone) 10 mg Q4H PRN PO PAIN Last administered on 20:32; Admin Dose 10 MG; Start 12/12/16 at 19:30 Cephalexin (Keflex) 500 mg Q6 PO Last administered on 12/15/16 06:56; Admin Dose 500 MG; Start 12/12/16 at 21:00; Stop 12/19/16 at 12:01 Fish Oil (Fish Oil) 1,000 mg BID PO Last administered on 12/15/16 08:26; Admin Dose 1,000 MG; Start 12/13/16 at 11:00 Ferrous Sulfate (Ferrous Sulfate (Ec)) 325 mg TID PO Last administered on 08:26; Admin Dose 325 MG; Start 12/13/16 at 13:00 Docusate Sodium (Colace) 100 mg BID PO Last administered on 12/15/16 08:; Admin Dose 100 MG; Start 12/13/16 at 21:00 Acetaminophen (Tylenol Tab) 325 mg Q4H PRN PO PAIN AND OR ELEVATED TEMP; Start 12/13/16 at 14:30 Bisacodyl (Dulcolax Supp) 10 mg DAILY PRN [place] CONSTIPATION; Start 12/13/16 at 14 :30 Magnesium Hydroxide (Milk Of Mag) 30 ml DAILY PRN PO CONSTIPATION; Start at 14:30 Lactulose (Enulose) 20 gm DAILY PRN PO CONSTIPATION; Start 12/13/16 at 14:30 Senna (Senokot) 1 tab HS PO ; Start 12/14/16 at 21:00 Silver Sulfadiazine (Thermazene 1% 25 Gm) 1 applic DAILY TOP Last administered on 12/14/16 14:00; Admin Dose 1 APPLIC; Start 12/14/16 at 14:00 Assessment/Plan Additional Assessment/Plan Rehab- Rheumatoid arthritis affecting multiple joints status post right total knee arthroplasty. Continue rehab program Acute pain syndrome. Anemia. JOE FERRERA MD Dec 15, 2016 10:33
--- NOTE | 2016-12-15 12:47 | PN ---
Date/Time of Note Date/Time of Note DATE: 12/15/16 TIME: 12:44 Assessment/Plan VTE Prophylaxis VTE Prophylaxis Intervention: ambulation, SCD's Lines/Catheters Urinary Cath still in place: No Assessment/Plan Problems: (1) Status post total right knee replacement Status: Acute Comment: Doing well. Cont. rehab. (2) Postoperative anemia Status: Acute Comment: Cont. FeSO4 tid (3) Rheumatoid arthritis Status: Chronic Comment: Cont. pain management post-op and chronically. Qualifiers: Rheumatoid arthritis location: multiple sites Rheumatoid factor presence: with rheumatoid factor Qualified Code: M05.79 - Rheumatoid arthritis involving multiple sites with positive rheumatoid factor (4) Osteoarthritis Status: Chronic Comment: Cont. pain management post-op and chronically. Qualifiers: Osteoarthritis location: multiple joints Osteoarthritis type: primary Qualified Code: M15.0 - Primary osteoarthritis involving multiple joints (5) Osteoporosis Status: Chronic Comment: Does not want treatment Qualifiers: Presence of current pathological fracture: without current pathological fracture Subjective 24 Hr Interval Summary Constitutional: improved, no complaints Respiratory: no complaints Cardiovascular: no complaints Gastrointestinal: no complaints Genitourinary: no complaints Musculoskeletal: no complaints Neurologic: no complaints Exam/Review of Systems Vital Signs Vitals VS - Last 72 Hours, by Label Date Time Temp Pulse Resp B/P Pulse Ox O2 Delivery O2 Flow Rate FiO2 12/15/16 07:30 98.6 89 20 120/69 98 12/14/16 20:00 98.3 90 18 102/54 98 12/14/16 07:45 98.5 84 18 96/55 95 12/13/16 20:00 98.3 80 18 101/61 90 12/13/16 07:30 98.5 92 20 124/59 98 12/13/16 02:00 98.7 87 18 118/67 93 12/12/16 21:24 98.3 90 18 111/61 98 12/12/16 17:00 98.1 88 18 125/75 98 Room Air Vital Signs Date Time Temp Pulse Resp B/P Pulse Ox O2 Delivery O2 Flow Rate FiO2 12/15/16 07:30 98.6 89 20 120/69 98 12/12/16 17:00 Room Air Intake and Output 12/14/16 12/14/16 12/15/16 15:00 23:00 07:00 Intake Total 1050 ml 500 ml Balance 1050 ml 500 ml Exam Constitutional: alert, oriented, other (thin) Psych: nl mood/affect, no complaints Respiratory: clear to auscultation, normal air movement Cardiovascular: nl pulses, regular rate and rhythm, No edema, No murmurs/extra sounds, No rub Gastrointestinal: bowel sounds, nl liver, spleen, non-tender, soft, No mass, No rebound or guarding Musculoskeletal: nl extremities to inspection Extremities: normal pulses, No clubbing, No cyanosis, No edema Neurological: PLATE GLASS GRINDER II-XII intact, nl mental status, nl speech, nl strength Results Result Diagram: 12/13/1634 12/13/16 0634 Medications Medications Current Medications Acetaminophen/ Hydrocodone Bitart ([place] (10/325)) 1 tab Q4H PRN PO PAIN Last administered on 12/15/16 10:17; Admin Dose 1 TAB; Start 12/12/16 at 15:00 Zolpidem Tartrate (Ambien) 5 mg HS PRN PO INSOMNIA; Start 12/12/16 at 15:00 Aspirin (Ecotrin) 325 mg BID PO Last administered on 12/15/16 08:26; Admin Dose 325 MG; Start 12/12/16 at 21:00 Gabapentin (Neurontin) 100 mg BID PO Last administered on 12/15/16 08:25; Admin Dose 100 MG; Start 12/12/16 at 21:00 Celecoxib (Celebrex) 100 mg BID PO Last administered on 12/15/16 08:29; Admin Dose 100 MG; Start 12/12/16 at 21:00 Oxycodone HCl (Roxicodone) 5 mg Q4H PRN PO PAIN; Start 12/12/16 at 19:30 Oxycodone HCl (Roxicodone) 10 mg Q4H PRN PO PAIN Last administered on 20:32; Admin Dose 10 MG; Start 12/12/16 at 19:30 Cephalexin (Keflex) 500 mg Q6 PO Last administered on 12/15/16 12:18; Admin Dose 500 MG; Start 12/12/16 at 21:00; Stop 12/19/16 at 12:01 Fish Oil (Fish Oil) 1,000 mg BID PO Last administered on 12/15/16 08:26; Admin Dose 1,000 MG; Start 12/13/16 at 11:00 Ferrous Sulfate (Ferrous Sulfate (Ec)) 325 mg TID PO Last administered on 12:18; Admin Dose 325 MG; Start 12/13/16 at 13:00 Docusate Sodium (Colace) 100 mg BID PO Last administered on 12/15/16 08:26; Admin Dose 100 MG; Start 12/13/16 at 21:00 Acetaminophen (Tylenol Tab) 325 mg Q4H PRN PO PAIN AND OR ELEVATED TEMP; Start 12/13/16 at 14:30 Bisacodyl (Dulcolax Supp) [address] [place] CONSTIPATION; Start 12/13/16 at 14 :30 Magnesium Hydroxide (Milk Of Mag) 30 ml DAILY PRN PO CONSTIPATION; Start at 14:30 Lactulose (Enulose) 20 gm DAILY PRN PO CONSTIPATION; Start 12/13/16 at 14:30 Senna (Senokot) 1 tab HS PO ; Start 12/14/16 at 21:00 Silver Sulfadiazine (Thermazene 1% 25 Gm) 1 applic DAILY TOP Last administered on 12/15/16 10:33; Admin Dose 1 APPLIC; Start 12/14/16 at 14:00 THANH WORKMAN MD Dec 15, 2016 12:47
[2016-12-15 14:00] VITALS: BP 105/55; RESP 20
[2016-12-15 19:34] VITALS: BP 116/62; RESP 17
[2016-12-15] MEDS: SENNA TAB PO SCH (21:00)
[2016-12-16] MEDS: CEPHALEXIN 500 MG CAP PO SCH ×5 (00:01→23:58)
[2016-12-16] MEDS: oxyCODONE 5 MG TAB PO PRN (00:02)
[2016-12-16 03:03] VITALS: BP 97/53; RESP 17
[2016-12-16] MEDS: SILVER SULFADIAZINE 1% 25 GM CR TOP SCH (09:00)
[2016-12-16] MEDS: FISH OIL 1,000 MG CAP PO SCH ×2 (09:02→20:42)
[2016-12-16] MEDS: CELECOXIB 100 MG CAP PO SCH ×2 (09:02→20:42)
[2016-12-16] MEDS: GABAPENTIN 100 MG CAP PO SCH ×2 (09:02→20:42)
[2016-12-16] MEDS: FERROUS SULFATE (EC) 325 MG TAB PO SCH ×3 (09:02→20:42)
[2016-12-16] MEDS: ASPIRIN (EC) 325 MG TAB PO SCH ×2 (09:02→20:42)
[2016-12-16] MEDS: DOCUSATE SODIUM 100 MG CAP PO SCH ×2 (09:02→20:42)
[2016-12-16] MEDS: HYDROCODONE/APAP (10/325) TAB PO PRN ×2 (09:16→20:48)
--- NOTE | 2016-12-16 12:21 | PN ---
Date/Time of Note Date/Time of Note DATE: 12/16/16 TIME: 12:17 Assessment/Plan VTE Prophylaxis VTE Prophylaxis Intervention: ambulation, SCD's Lines/Catheters Urinary Cath still in place: No Assessment/Plan Problems: (1) Status post total right knee replacement Status: Acute Comment: Doing well. Cont. rehab. (2) Rheumatoid arthritis Status: Chronic Comment: Controlled. Qualifiers: Rheumatoid arthritis location: multiple sites Rheumatoid factor presence: with rheumatoid factor Qualified Code: M05.79 - Rheumatoid arthritis involving multiple sites with positive rheumatoid factor (3) Osteoarthritis Status: Chronic Comment: Controlled w/ pain meds. Qualifiers: Osteoarthritis location: multiple joints Osteoarthritis type: primary Qualified Code: M15.0 - Primary osteoarthritis involving multiple joints (4) Postoperative anemia Status: Acute Comment: Improving. Cont. FeSO4 tid Subjective 24 Hr Interval Summary Constitutional: improved (had PT yesterday and feels this was helpful--wants more of this), no complaints Respiratory: no complaints Cardiovascular: no complaints Gastrointestinal: no complaints Genitourinary: no complaints Musculoskeletal: bone/joint pain (pain during PT but o/w very well-controlled) Neurologic: no complaints Exam/Review of Systems Vital Signs Vitals VS - Last 72 Hours, by Label Date Time Temp Pulse Resp B/P Pulse Ox O2 Delivery O2 Flow Rate FiO2 12/16/16 03:03 97.8 92 17 97/53 97 12/15/16 19:34 98.6 17 116/62 98 12/15/16 14:00 98.6 80 20 105/55 97 12/15/16 07:30 98.6 89 20 120/69 98 12/14/16 20:00 98.3 90 18 102/54 98 12/14/16 07:45 98.5 84 18 96/55 95 12/13/16 20:00 98.3 80 18 101/61 90 Vital Signs Date Time Temp Pulse Resp B/P Pulse Ox O2 Delivery O2 Flow Rate FiO2 12/16/16 03:03 97.8 92 17 97/53 97 12/12/16 17:00 Room Air Intake and Output 12/15/16 12/15/16 12/16/16 15:00 23:00 07:00 Intake Total 680 ml 350 ml Output Total 200 ml Balance 680 ml 150 ml Exam Constitutional: alert, oriented, other (thin) Psych: nl mood/affect, no complaints Respiratory: clear to auscultation, normal air movement Cardiovascular: nl pulses, regular rate and rhythm, No edema, No murmurs/extra sounds, No rub Gastrointestinal: bowel sounds, nl liver, spleen, non-tender, soft, No mass, No rebound or guarding Musculoskeletal: nl extremities to inspection Extremities: normal pulses, No clubbing, No cyanosis, No edema Neurological: MARKET ANALYSIS DIRECTOR II-XII intact, nl mental status, nl speech, nl strength Results Result Diagram: 12/13/1663312/13/16633 Medications Medications Current Medications Acetaminophen/ Hydrocodone Bitart ([place] (10/325)) 1 tab Q4H PRN PO PAIN Last administered on 12/16/16 09:16; Admin Dose 1 TAB; Start 12/12/16 at 15:00 Zolpidem Tartrate (Ambien) 5 mg HS PRN PO INSOMNIA; Start 12/12/16 at 15:00 Aspirin (Ecotrin) 325 mg BID PO Last administered on 12/16/16 09:02; Admin Dose 325 MG; Start 12/12/16 at 21:00 Gabapentin (Neurontin) 100 mg BID PO Last administered on 12/16/16 09:02; Admin Dose 100 MG; Start 12/12/16 at 21:00 Celecoxib (Celebrex) 100 mg BID PO Last administered on 12/16/16 09:02; Admin Dose 100 MG; Start 12/12/16 at 21:00 Oxycodone HCl (Roxicodone) 5 mg Q4H PRN PO PAIN; Start 12/12/16 at 19:30 Oxycodone HCl (Roxicodone) 10 mg Q4H PRN PO PAIN Last administered on 00:02; Admin Dose 10 MG; Start 12/12/16 at 19:30 Cephalexin (Keflex) 500 mg Q6 PO Last administered on 12/16/16 06:34; Admin Dose 500 MG; Start 12/12/16 at 21:00; Stop 12/19/16 at 12:01 Fish Oil (Fish Oil) 1,000 mg BID PO Last administered on 12/16/16 09:02; Admin Dose 1,000 MG; Start 12/13/16 at 11:00 Ferrous Sulfate (Ferrous Sulfate (Ec)) 325 mg TID PO Last administered on 09:02; Admin Dose 325 MG; Start 12/13/16 at 13:00 Docusate Sodium (Colace) 100 mg BID PO Last administered on 12/16/16 09:02; Admin Dose 100 MG; Start 12/13/16 at 21:00 Acetaminophen (Tylenol Tab) 325 mg Q4H PRN PO PAIN AND OR ELEVATED TEMP; Start 12/13/16 at 14:30 Bisacodyl (Dulcolax Supp) 10 mg DAILY PRN [place] CONSTIPATION; Start 12/13/16 at 14 :30 Magnesium Hydroxide (Milk Of Mag) 30 ml DAILY PRN PO CONSTIPATION; Start at 14:30 Lactulose (Enulose) 20 gm DAILY PRN PO CONSTIPATION; Start 12/13/16 at 14:30 Senna (Senokot) 1 tab HS PO ; Start 12/14/16 at 21:00 Silver Sulfadiazine (Thermazene 1% 25 Gm) 1 applic DAILY TOP Last administered on 12/15/16 10:33; Admin Dose 1 APPLIC; Start 12/14/16 at 14:00 THANH WORKMAN MD Dec 16, 2016 12:21
[2016-12-16 20:00] VITALS: BP 110/60; RESP 18
[2016-12-16] MEDS: SENNA TAB PO SCH (20:42)
[2016-12-17 02:00] VITALS: BP 116/58; RESP 18
[2016-12-17] MEDS: CEPHALEXIN 500 MG CAP PO SCH ×3 (06:02→18:02)
[2016-12-17] MEDS: HYDROCODONE/APAP (10/325) TAB PO PRN ×3 (06:04→20:27)
[2016-12-17 07:30] VITALS: BP 115/58; RESP 18
[2016-12-17] MEDS: SILVER SULFADIAZINE 1% 25 GM CR TOP SCH (09:15)
[2016-12-17] MEDS: ASPIRIN (EC) 325 MG TAB PO SCH ×2 (09:15→20:23)
[2016-12-17] MEDS: GABAPENTIN 100 MG CAP PO SCH ×2 (09:15→20:23)
[2016-12-17] MEDS: FERROUS SULFATE (EC) 325 MG TAB PO SCH ×3 (09:15→20:23)
[2016-12-17] MEDS: DOCUSATE SODIUM 100 MG CAP PO SCH ×2 (09:15→20:23)
[2016-12-17] MEDS: FISH OIL 1,000 MG CAP PO SCH ×2 (09:16→20:23)
[2016-12-17] MEDS: CELECOXIB 100 MG CAP PO SCH ×2 (09:16→20:23)
--- NOTE | 2016-12-17 11:24 | CONS ---
Date/Time of Note Date/Time of Note DATE: 12/17/16 TIME: 11:22 Consult Date/Type/Reason Admit Date/Time Dec 12, 2016 at 14:12 Subjective Doing very well Objective Vital Signs Date Time Temp Pulse Resp B/P Pulse Ox O2 Delivery O2 Flow Rate FiO2 12/17/16 07:30 98.4 88 18 115/58 97 Intake and Output 12/16/16 12/16/16 12/17/16 15:00 23:00 07:00 Intake Total 600 ml 240 ml Balance 600 ml 240 ml Interdisciplinary Team Conference: Bowel-continent Bladder-continent Integument- intact OT- Dressing-contact guard Bathing-contact guard [id number] PT Bed mobility-contact guard [id number]-[id number]-ylrtb [id number]-[id number] 100 feet Interdisciplinary team conference held today please see note. Team is working towards discharge on 12/25 with physical therapy and Occupational Therapy follow- up. Results/Medications Result Diagram: 12/13/16 0634 12/13/16 0634 Medications Current Medications Acetaminophen/ Hydrocodone Bitart ([place] (10/325)) 1 tab Q4H PRN PO PAIN Last administered on 12/17/16 06:04; Admin Dose 1 TAB; Start 12/12/16 at 15:00 Zolpidem Tartrate (Ambien) 5 mg HS PRN PO INSOMNIA; Start 12/12/16 at 15:00 Aspirin (Ecotrin) 325 mg BID PO Last administered on 12/17/16 09:15; Admin Dose 325 MG; Start 12/12/16 at 21:00 Gabapentin (Neurontin) 100 mg BID PO Last administered on 12/17/16 09:15; Admin Dose 100 MG; Start 12/12/16 at 21:00 Celecoxib (Celebrex) 100 mg BID PO Last administered on 12/17/16 09:16; Admin Dose 100 MG; Start 12/12/16 at 21:00 Oxycodone HCl (Roxicodone) 5 mg Q4H PRN PO PAIN; Start 12/12/16 at 19:30 Oxycodone HCl (Roxicodone) 10 mg Q4H PRN PO PAIN Last administered on 00:02; Admin Dose 10 MG; Start 12/12/16 at 19:30 Cephalexin (Keflex) 500 mg Q6 PO Last administered on 12/17/16 06:02; Admin Dose 500 MG; Start 12/12/16 at 21:00; Stop 12/19/16 at 12:01 Fish Oil (Fish Oil) 1,000 mg BID PO Last administered on 12/17/16 09:16; Admin Dose 1,000 MG; Start 12/13/16 at 11:00 Ferrous Sulfate (Ferrous Sulfate (Ec)) 325 mg TID PO Last administered on 09:15; Admin Dose 325 MG; Start 12/13/16 at 13:00 Docusate Sodium (Colace) 100 mg BID PO Last administered on 12/17/16 09:15; Admin Dose 100 MG; Start 12/13/16 at 21:00 Acetaminophen (Tylenol Tab) 325 mg Q4H PRN PO PAIN AND OR ELEVATED TEMP; Start 12/13/16 at 14:30 Bisacodyl (Dulcolax Supp) 10 mg DAILY PRN [place] CONSTIPATION; Start 12/13/16 at 14 :30 Magnesium Hydroxide (Milk Of Mag) 30 ml DAILY PRN PO CONSTIPATION; Start at 14:30 Lactulose (Enulose) 20 gm DAILY PRN PO CONSTIPATION; Start 12/13/16 at 14:30 Senna (Senokot) 1 tab HS PO Last administered on 12/16/16 20:42; Admin Dose 1 TAB; Start 12/14/16 at 21:00 Silver Sulfadiazine (Thermazene 1% 25 Gm) 1 applic DAILY TOP Last administered on 12/17/16 09:15; Admin Dose 1 APPLIC; Start 12/14/16 at 14:00 JOE FERRERA MD Dec 17, 2016 11:24
--- NOTE | 2016-12-17 11:48 | PN ---
Date/Time of Note Date/Time of Note DATE: 12/17/16 TIME: 11:42 Assessment/Plan VTE Prophylaxis VTE Prophylaxis Intervention: other (Aspirin 325 mg twice daily) Lines/Catheters IV Catheter Type (from Nrs): Saline Lock Urinary Cath still in place: No Assessment/Plan Assessment/Plan * Continue with physical therapy while in acute rehabilitation unit. * We will reassess at the end of the week to see if patient is ready to be transferred home but if not likely an additional week for extra close monitoring and improved functionality. Subjective 24 Hr Interval Summary Free Text/Dictation 56 year old female status post right total knee arthroplasty currently in rehab unit. Patient is doing well. Has been seen by apartment leasing specialist. Blisters surrounding the wound have improved. Continues weightbearing with assistance using front wheeled walker. Also using CPM machine at rest. No complaints at this time but she does is concerned that she does continue with weakness and does not feel confident to return home. Exam/Review of Systems Vital Signs Vitals Vital Signs Date Time Temp Pulse Resp B/P Pulse Ox O2 Delivery O2 Flow Rate FiO2 12/17/16 07:30 98.4 88 18 115/58 97 Intake and Output 12/16/16 12/16/16 12/17/16 15:00 23:00 07:00 Intake Total 600 ml 240 ml Balance 600 ml 240 ml Exam Right knee surgical incision is clean dry and intact. No tenderness to palpation. Blistering surrounding the wound continues to heal well. No signs of infection. Continued weakness and stiffness with flexion and extension. Constitutional: alert, oriented, well developed Results Result Diagram: 12/13/16 0634 12/13/16 0634 Medications Medications Current Medications Acetaminophen/ Hydrocodone Bitart ([place] (10/325)) 1 tab Q4H PRN PO PAIN Last administered on 12/17/16 06:04; Admin Dose 1 TAB; Start 12/12/16 at 15:00 Zolpidem Tartrate (Ambien) 5 mg HS PRN PO INSOMNIA; Start 12/12/16 at 15:00 Aspirin (Ecotrin) 325 mg BID PO Last administered on 12/17/16 09:15; Admin Dose 325 MG; Start 12/12/16 at 21:00 Gabapentin (Neurontin) 100 mg BID PO Last administered on 12/17/16 09:15; Admin Dose 100 MG; Start 12/12/16 at 21:00 Celecoxib (Celebrex) 100 mg BID PO Last administered on 12/17/16 09:16; Admin Dose 100 MG; Start 12/12/16 at 21:00 Oxycodone HCl (Roxicodone) 5 mg Q4H PRN PO PAIN; Start 12/12/16 at 19:30 Oxycodone HCl (Roxicodone) 10 mg Q4H PRN PO PAIN Last administered on 00:02; Admin Dose 10 MG; Start 12/12/16 at 19:30 Cephalexin (Keflex) 500 mg Q6 PO Last administered on 12/17/16 06:02; Admin Dose 500 MG; Start 12/12/16 at 21:00; Stop 12/19/16 at 12:01 Fish Oil (Fish Oil) 1,000 mg BID PO Last administered on 12/17/16 09:16; Admin Dose 1,000 MG; Start 12/13/16 at 11:00 Ferrous Sulfate (Ferrous Sulfate (Ec)) 325 mg TID PO Last administered on 09:15; Admin Dose 325 MG; Start 12/13/16 at 13:00 Docusate Sodium (Colace) 100 mg BID PO Last administered on 12/17/16 09:15; Admin Dose 100 MG; Start 12/13/16 at 21:00 Acetaminophen (Tylenol Tab) 325 mg Q4H PRN PO PAIN AND OR ELEVATED TEMP; Start 12/13/16 at 14:30 Bisacodyl (Dulcolax Supp) 10 mg DAILY PRN [place] CONSTIPATION; Start 12/13/16 at 14 :30 Magnesium Hydroxide (Milk Of Mag) 30 ml DAILY PRN PO CONSTIPATION; Start at 14:30 Lactulose (Enulose) 20 gm DAILY PRN PO CONSTIPATION; Start 12/13/16 at 14:30 Senna (Senokot) 1 tab HS PO Last administered on 12/16/16 20:42; Admin Dose 1 TAB; Start 12/14/16 at 21:00 Silver Sulfadiazine (Thermazene 1% 25 Gm) 1 applic DAILY TOP Last administered on 12/17/16 09:15; Admin Dose 1 APPLIC; Start 12/14/16 at 14:00 ROSALVA PENA PA-C Dec 17, 2016 11:48
--- NOTE | 2016-12-17 13:28 | PN ---
Date/Time of Note Date/Time of Note DATE: 12/17/16 TIME: 13:26 Assessment/Plan VTE Prophylaxis VTE Prophylaxis Intervention: heparin Lines/Catheters IV Catheter Type (from Nrsg): Saline Lock Urinary Cath still in place: No Assessment/Plan Problems: (1) Iron deficiency anemia Status: Chronic Comment: resolving with supplemetation Qualifiers: Iron deficiency anemia type: unspecified iron deficiency Qualified Code: D50.9 - Iron deficiency anemia, unspecified iron deficiency anemia type (2) Osteoporosis Status: Chronic Comment: noted, declined therapeutics Qualifiers: Presence of current pathological fracture: without current pathological fracture (3) Status post total right knee replacement Status: Acute Comment: slowly recovering Subjective 24 Hr Interval Summary Free Text/Dictation reports doimg ok but slow with physical therap[y Constitutional: no complaints Eyes: no complaints Cardiovascular: no complaints Gastrointestinal: no complaints Genitourinary: no complaints Exam/Review of Systems Vital Signs Vitals Vital Signs Date Time Temp Pulse Resp B/P Pulse Ox O2 Delivery O2 Flow Rate FiO2 12/17/16 07:30 98.4 88 18 115/58 97 Intake and Output 12/16/16 12/16/16 12/17/16 14:59 22:59 06:59 Intake Total 600 ml 240 ml Balance 600 ml 240 ml Exam Constitutional: alert, oriented Respiratory: clear to auscultation, normal air movement Cardiovascular: nl pulses, regular rate and rhythm Gastrointestinal: nl liver, spleen, non-tender, soft Extremities: other (unchanged from prior) Results Result Diagram: 12/13/16 0634 12/13/16 0634 Medications Medications Current Medications Acetaminophen/ Hydrocodone Bitart ([place] (10/325)) 1 tab Q4H PRN PO PAIN Last administered on 12/17/16 12:31; Admin Dose 1 TAB; Start 12/12/16 at 15:00 Zolpidem Tartrate (Ambien) 5 mg HS PRN PO INSOMNIA; Start 12/12/16 at 15:00 Aspirin (Ecotrin) 325 mg BID PO Last administered on 12/17/16 09:15; Admin Dose 325 MG; Start 12/12/16 at 21:00 Gabapentin (Neurontin) 100 mg BID PO Last administered on 12/17/16 09:15; Admin Dose 100 MG; Start 12/12/16 at 21:00 Celecoxib (Celebrex) 100 mg BID PO Last administered on 12/17/16 09:16; Admin Dose 100 MG; Start 12/12/16 at 21:00 Oxycodone HCl (Roxicodone) 5 mg Q4H PRN PO PAIN; Start 12/12/16 at 19:30 Oxycodone HCl (Roxicodone) 10 mg Q4H PRN PO PAIN Last administered on 00:02; Admin Dose 10 MG; Start 12/12/16 at 19:30 Cephalexin (Keflex) 500 mg Q6 PO Last administered on 12/17/16 12:32; Admin Dose 500 MG; Start 12/12/16 at 21:00; Stop 12/19/16 at 12:01 Fish Oil (Fish Oil) 1,000 mg BID PO Last administered on 12/17/16 09:16; Admin Dose 1,000 MG; Start 12/13/16 at 11:00 Ferrous Sulfate (Ferrous Sulfate (Ec)) 325 mg TID PO Last administered on 12:32; Admin Dose 325 MG; Start 12/13/16 at 13:00 Docusate Sodium (Colace) 100 mg BID PO Last administered on 12/17/16 09:15; Admin Dose 100 MG; Start 12/13/16 at 21:00 Acetaminophen (Tylenol Tab) 325 mg Q4H PRN PO PAIN AND OR ELEVATED TEMP; Start 12/13/16 at 14:30 Bisacodyl (Dulcolax Supp) 10 mg DAILY PRN [place] CONSTIPATION; Start 12/13/16 at 14 :30 Magnesium Hydroxide (Milk Of Mag) 30 ml DAILY PRN PO CONSTIPATION; Start at 14:30 Lactulose (Enulose) 20 gm DAILY PRN PO CONSTIPATION; Start 12/13/16 at 14:30 Senna (Senokot) 1 tab HS PO Last administered on 12/16/16 20:42; Admin Dose 1 TAB; Start 12/14/16 at 21:00 Silver Sulfadiazine (Thermazene 1% 25 Gm) 1 applic DAILY TOP Last administered on 12/17/16 09:15; Admin Dose 1 APPLIC; Start 12/14/16 at 14:00 CORRY SCHRADER MD Dec 17, 2016 13:28
[2016-12-17 14:00] VITALS: BP 117/67; RESP 18
[2016-12-17 20:00] VITALS: BP 108/62; RESP 18
[2016-12-17] MEDS: SENNA TAB PO SCH (20:24)
[2016-12-18] MEDS: CEPHALEXIN 500 MG CAP PO SCH ×4 (00:01→17:48)
[2016-12-18 02:08] VITALS: BP 112/63; RESP 18
[2016-12-18 08:00] VITALS: BP 118/60; RESP 18
[2016-12-18] MEDS: CELECOXIB 100 MG CAP PO SCH ×2 (08:34→21:08)
[2016-12-18] MEDS: SILVER SULFADIAZINE 1% 25 GM CR TOP SCH (08:35)
[2016-12-18] MEDS: FERROUS SULFATE (EC) 325 MG TAB PO SCH ×3 (08:35→21:08)
[2016-12-18] MEDS: HYDROCODONE/APAP (10/325) TAB PO PRN ×3 (08:35→17:48)
[2016-12-18] MEDS: DOCUSATE SODIUM 100 MG CAP PO SCH ×2 (08:35→21:08)
[2016-12-18] MEDS: FISH OIL 1,000 MG CAP PO SCH ×2 (08:35→21:07)
[2016-12-18] MEDS: ASPIRIN (EC) 325 MG TAB PO SCH ×2 (08:35→21:08)
[2016-12-18] MEDS: GABAPENTIN 100 MG CAP PO SCH ×2 (08:35→21:08)
--- NOTE | 2016-12-18 12:07 | CONS ---
Date/Time of Note Date/Time of Note DATE: 12/18/16 TIME: 12:06 Consult Date/Type/Reason Admit Date/Time Dec 12, 2016 at 14:12 Subjective Pain improving Objective min assist ambulation Vital Signs Date Time Temp Pulse Resp B/P Pulse Ox O2 Delivery O2 Flow Rate FiO2 12/18/16 08:00 98.4 87 18 118/60 98 Intake and Output 12/17/16 12/17/16 12/18/16 15:00 23:00 07:00 Intake Total 680 ml 360 ml Balance 680 ml 360 ml Results/Medications Medications Current Medications Acetaminophen/ Hydrocodone Bitart ([place] (10/325)) 1 tab Q4H PRN PO PAIN Last administered on 12/18/16 08:35; Admin Dose 1 TAB; Start 12/12/16 at 15:00 Zolpidem Tartrate (Ambien) 5 mg HS PRN PO INSOMNIA; Start 12/12/16 at 15:00 Aspirin (Ecotrin) 325 mg BID PO Last administered on 12/18/16 08:35; Admin Dose 325 MG; Start 12/12/16 at 21:00 Gabapentin (Neurontin) 100 mg BID PO Last administered on 12/18/16 08:35; Admin Dose 100 MG; Start 12/12/16 at 21:00 Celecoxib (Celebrex) 100 mg BID PO Last administered on 12/18/16 08:34; Admin Dose 100 MG; Start 12/12/16 at 21:00 Oxycodone HCl (Roxicodone) 5 mg Q4H PRN PO PAIN; Start 12/12/16 at 19:30 Oxycodone HCl (Roxicodone) 10 mg Q4H PRN PO PAIN Last administered on 00:02; Admin Dose 10 MG; Start 12/12/16 at 19:30 Cephalexin (Keflex) 500 mg Q6 PO Last administered on 12/18/16 06:21; Admin Dose 500 MG; Start 12/12/16 at 21:00; Stop 12/19/16 at 12:01 Fish Oil (Fish Oil) 1,000 mg BID PO Last administered on 12/18/16 08:35; Admin Dose 1,000 MG; Start 12/13/16 at 11:00 Ferrous Sulfate (Ferrous Sulfate (Ec)) 325 mg TID PO Last administered on 08:35; Admin Dose 325 MG; Start 12/13/16 at 13:00 Docusate Sodium (Colace) 100 mg BID PO Last administered on 12/18/16 08:35; Admin Dose 100 MG; Start 12/13/16 at 21:00 Acetaminophen (Tylenol Tab) 325 mg Q4H PRN PO PAIN AND OR ELEVATED TEMP; Start 12/13/16 at 14:30 Bisacodyl (Dulcolax Supp) 10 mg DAILY PRN [place] CONSTIPATION; Start 12/13/16 at 14 :30 Magnesium Hydroxide (Milk Of Mag) 30 ml DAILY PRN PO CONSTIPATION; Start at 14:30 Lactulose (Enulose) 20 gm DAILY PRN PO CONSTIPATION; Start 12/13/16 at 14:30 Senna (Senokot) 1 tab HS PO Last administered on 12/16/16 20:42; Admin Dose 1 TAB; Start 12/14/16 at 21:00 Silver Sulfadiazine (Thermazene 1% 25 Gm) 1 applic DAILY TOP Last administered on 12/18/16 08:35; Admin Dose 1 APPLIC; Start 12/14/16 at 14:00 Assessment/Plan Additional Assessment/Plan Rehab- Rheumatoid arthritis affecting multiple joints status post right total knee arthroplasty. Continue rehab activities Acute pain syndrome- continue current pain meds Anemia. JOE FERRERA MD Dec 18, 2016 12:07
--- NOTE | 2016-12-18 18:08 | PN ---
Date/Time of Note Date/Time of Note DATE: 12/18/16 TIME: 18:06 Assessment/Plan VTE Prophylaxis VTE Prophylaxis Intervention: anti-embolic stocking Lines/Catheters IV Catheter Type (from Nrsg): Saline Lock Urinary Cath still in place: No Assessment/Plan Problems: (1) Status post total right knee replacement Status: Acute Comment: Attending with full rehabilitative care. Approaching time of discharge Subjective 24 Hr Interval Summary Free Text/Dictation She continues to progress with assistance in the acute rehabilitation unit Constitutional: no complaints Respiratory: no complaints Cardiovascular: no complaints Exam/Review of Systems Vital Signs Vitals Vital Signs Date Time Temp Pulse Resp B/P Pulse Ox O2 Delivery O2 Flow Rate FiO2 12/18/16 08:00 98.4 87 18 118/60 98 Intake and Output 12/17/16 12/17/16 12/18/16 15:00 23:00 07:00 Intake Total 680 ml 360 ml Balance 680 ml 360 ml Exam Respiratory: clear to auscultation, normal air movement Cardiovascular: nl pulses, regular rate and rhythm Medications Medications Current Medications Acetaminophen/ Hydrocodone Bitart ([place] (10/325)) 1 tab Q4H PRN PO PAIN Last administered on 12/18/16 17:48; Admin Dose 1 TAB; Start 12/12/16 at 15:00 Zolpidem Tartrate (Ambien) 5 mg HS PRN PO INSOMNIA; Start 12/12/16 at 15:00 Aspirin (Ecotrin) 325 mg BID PO Last administered on 12/18/16 08:35; Admin Dose 325 MG; Start 12/12/16 at 21:00 Gabapentin (Neurontin) 100 mg BID PO Last administered on 12/18/16 08:35; Admin Dose 100 MG; Start 12/12/16 at 21:00 Celecoxib (Celebrex) 100 mg BID PO Last administered on 12/18/16 08:34; Admin Dose 100 MG; Start 12/12/16 at 21:00 Oxycodone HCl (Roxicodone) 5 mg Q4H PRN PO PAIN; Start 12/12/16 at 19:30 Oxycodone HCl (Roxicodone) 10 mg Q4H PRN PO PAIN Last administered on 00:02; Admin Dose 10 MG; Start 12/12/16 at 19:30 Cephalexin (Keflex) 500 mg Q6 PO Last administered on 12/18/16 17:48; Admin Dose 500 MG; Start 12/12/16 at 21:00; Stop 12/19/16 at 12:01 Fish Oil (Fish Oil) 1,000 mg BID PO Last administered on 12/18/16 08:35; Admin Dose 1,000 MG; Start 12/13/16 at 11:00 Ferrous Sulfate (Ferrous Sulfate (Ec)) 325 mg TID PO Last administered on 12:25; Admin Dose 325 MG; Start 12/13/16 at 13:00 Docusate Sodium (Colace) 100 mg BID PO Last administered on 12/18/16 08:35; Admin Dose 100 MG; Start 12/13/16 at 21:00 Acetaminophen (Tylenol Tab) 325 mg Q4H PRN PO PAIN AND OR ELEVATED TEMP; Start 12/13/16 at 14:30 Bisacodyl (Dulcolax Supp) 10 mg DAILY PRN [place] CONSTIPATION; Start 12/13/16 at 14 :30 Magnesium Hydroxide (Milk Of Mag) 30 ml DAILY PRN PO CONSTIPATION; Start at 14:30 Lactulose (Enulose) 20 gm DAILY PRN PO CONSTIPATION; Start 12/13/16 at 14:30 Senna (Senokot) 1 tab HS PO Last administered on 12/16/16 20:42; Admin Dose 1 TAB; Start 12/14/16 at 21:00 Silver Sulfadiazine (Thermazene 1% 25 Gm) 1 applic DAILY TOP Last administered on 12/18/16 08:35; Admin Dose 1 APPLIC; Start 12/14/16 at 14:00 CORRY SCHRADER MD Dec 18, 2016 18:08
[2016-12-18 20:00] VITALS: BP 123/61; RESP 18
[2016-12-18] MEDS: SENNA TAB PO SCH (21:00)
[2016-12-19] MEDS: CEPHALEXIN 500 MG CAP PO SCH ×3 (00:36→12:34)
[2016-12-19 01:56] VITALS: BP 116/64; RESP 18
[2016-12-19] MEDS: HYDROCODONE/APAP (10/325) TAB PO PRN ×3 (06:31→21:29)
[2016-12-19 07:55] VITALS: BP 122/48; RESP 18
[2016-12-19] MEDS: DOCUSATE SODIUM 100 MG CAP PO SCH ×2 (08:46→21:27)
[2016-12-19] MEDS: ASPIRIN (EC) 325 MG TAB PO SCH ×2 (08:46→21:28)
[2016-12-19] MEDS: GABAPENTIN 100 MG CAP PO SCH ×2 (08:46→21:28)
[2016-12-19] MEDS: FERROUS SULFATE (EC) 325 MG TAB PO SCH ×3 (08:46→21:28)
[2016-12-19] MEDS: FISH OIL 1,000 MG CAP PO SCH ×2 (08:46→21:28)
[2016-12-19] MEDS: CELECOXIB 100 MG CAP PO SCH ×2 (08:46→21:27)
[2016-12-19] MEDS: SILVER SULFADIAZINE 1% 25 GM CR TOP SCH (08:47)
--- NOTE | 2016-12-19 11:44 | CONS ---
Date/Time of Note Date/Time of Note DATE: 12/19/16 TIME: 11:44 Consult Date/Type/Reason Admit Date/Time Dec 12, 2016 at 14:12 Subjective didn't sleep well last night Objective pulm-cta cga ambulation Vital Signs Date Time Temp Pulse Resp B/P Pulse Ox O2 Delivery O2 Flow Rate FiO2 12/19/16 07:55 98.4 88 18 122/48 97 Intake and Output 12/18/16 12/18/16 12/19/16 15:00 23:00 07:00 Intake Total 1000 ml 400 ml 380 ml Balance 1000 ml 400 ml 380 ml Results/Medications Medications Current Medications Acetaminophen/ Hydrocodone Bitart ([place] (10/325)) 1 tab Q4H PRN PO PAIN Last administered on 12/19/16 06:31; Admin Dose 1 TAB; Start 12/12/16 at 15:00 Zolpidem Tartrate (Ambien) 5 mg HS PRN PO INSOMNIA; Start 12/12/16 at 15:00 Aspirin (Ecotrin) 325 mg BID PO Last administered on 12/19/16 08:46; Admin Dose 325 MG; Start 12/12/16 at 21:00 Gabapentin (Neurontin) 100 mg BID PO Last administered on 12/19/16 08:46; Admin Dose 100 MG; Start 12/12/16 at 21:00 Celecoxib (Celebrex) 100 mg BID PO Last administered on 12/19/16 08:46; Admin Dose 100 MG; Start 12/12/16 at 21:00 Oxycodone HCl (Roxicodone) 5 mg Q4H PRN PO PAIN; Start 12/12/16 at 19:30 Oxycodone HCl (Roxicodone) 10 mg Q4H PRN PO PAIN Last administered on 00:02; Admin Dose 10 MG; Start 12/12/16 at 19:30 Cephalexin (Keflex) 500 mg Q6 PO Last administered on 12/19/16 06:31; Admin Dose 500 MG; Start 12/12/16 at 21:00; Stop 12/19/16 at 12:01 Fish Oil (Fish Oil) 1,000 mg BID PO Last administered on 12/19/16 08:46; Admin Dose 1,000 MG; Start 12/13/16 at 11:00 Ferrous Sulfate (Ferrous Sulfate (Ec)) 325 mg TID PO Last administered on 08:46; Admin Dose 325 MG; Start 12/13/16 at 13:00 Docusate Sodium (Colace) 100 mg BID PO Last administered on 12/19/16 08:46; Admin Dose 100 MG; Start 12/13/16 at 21:00 Acetaminophen (Tylenol Tab) 325 mg Q4H PRN PO PAIN AND OR ELEVATED TEMP; Start 12/13/16 at 14:30 Bisacodyl (Dulcolax Supp) 10 mg DAILY PRN [place] CONSTIPATION; Start 12/13/16 at 14 :30 Magnesium Hydroxide (Milk Of Mag) 30 ml DAILY PRN PO CONSTIPATION; Start at 14:30 Lactulose (Enulose) 20 gm DAILY PRN PO CONSTIPATION; Start 12/13/16 at 14:30 Senna (Senokot) 1 tab HS PO Last administered on 12/16/16 20:42; Admin Dose 1 TAB; Start 12/14/16 at 21:00 Silver Sulfadiazine (Thermazene 1% 25 Gm) 1 applic DAILY TOP Last administered on 12/19/16 08:47; Admin Dose 1 APPLIC; Start 12/14/16 at 14:00 Assessment/Plan Additional Assessment/Plan Rehab- Rheumatoid arthritis affecting multiple joints status post right total knee arthroplasty. Continue rehab program Acute pain syndrome- continue current pain meds Anemia. JOE FERRERA MD Dec 19, 2016 11:44
--- NOTE | 2016-12-19 12:38 | PN ---
Date/Time of Note Date/Time of Note DATE: 12/19/16 TIME: 12:36 Assessment/Plan VTE Prophylaxis VTE Prophylaxis Intervention: anti-embolic stocking Lines/Catheters IV Catheter Type (from Nrs): Saline Lock Urinary Cath still in place: No Assessment/Plan Problems: (1) Status post total right knee replacement Status: Acute Comment: Resting with physical therapy nicely. Rehabilitation potential is good. Expect discharge in the next 10 days (2) Osteoporosis Status: Chronic Comment: Stable. Patient again declines offer of pharmaceutical treatment Qualifiers: Presence of current pathological fracture: without current pathological fracture (3) Rheumatoid arthritis Status: Chronic Comment: Good. No immediate indication for intervention in the short Qualifiers: Rheumatoid arthritis location: multiple sites Rheumatoid factor presence: with rheumatoid factor Qualified Code: M05.79 - Rheumatoid arthritis involving multiple sites with positive rheumatoid factor (4) Osteoarthritis Status: Chronic Comment: Recovering nicely Qualifiers: Osteoarthritis location: multiple joints Osteoarthritis type: primary Qualified Code: M15.0 - Primary osteoarthritis involving multiple joints Subjective 24 Hr Interval Summary Free Text/Dictation Sitting up in bed eating lunch. Plans for extended rehabilitation session of exercise today starting at 1:00 Constitutional: no complaints Respiratory: no complaints Cardiovascular: no complaints Gastrointestinal: no complaints Exam/Review of Systems Vital Signs Vitals Vital Signs Date Time Temp Pulse Resp B/P Pulse Ox O2 Delivery O2 Flow Rate FiO2 12/19/16 07:55 98.4 88 18 122/48 97 Intake and Output 12/18/16 12/18/16 12/19/16 15:00 23:00 07:00 Intake Total 1000 ml 400 ml 380 ml Balance 1000 ml 400 ml 380 ml Exam Constitutional: alert, oriented Neck: non-tender, supple Respiratory: clear to auscultation, normal air movement Cardiovascular: nl pulses, regular rate and rhythm Medications Medications Current Medications Acetaminophen/ Hydrocodone Bitart ([place] (10/325)) 1 tab Q4H PRN PO PAIN Last administered on 12/19/16 06:31; Admin Dose 1 TAB; Start 12/12/16 at 15:00 Zolpidem Tartrate (Ambien) 5 mg HS PRN PO INSOMNIA; Start 12/12/16 at 15:00 Aspirin (Ecotrin) 325 mg BID PO Last administered on 12/19/16 08:46; Admin Dose 325 MG; Start 12/12/16 at 21:00 Gabapentin (Neurontin) 100 mg BID PO Last administered on 12/19/16 08:46; Admin Dose 100 MG; Start 12/12/16 at 21:00 Celecoxib (Celebrex) 100 mg BID PO Last administered on 12/19/16 08:46; Admin Dose 100 MG; Start 12/12/16 at 21:00 Oxycodone HCl (Roxicodone) 5 mg Q4H PRN PO PAIN; Start 12/12/16 at 19:30 Oxycodone HCl (Roxicodone) 10 mg Q4H PRN PO PAIN Last administered on 00:02; Admin Dose 10 MG; Start 12/12/16 at 19:30 Fish Oil (Fish Oil) 1,000 mg BID PO Last administered on 12/19/16 08:46; Admin Dose 1,000 MG; Start 12/13/16 at 11:00 Ferrous Sulfate (Ferrous Sulfate (Ec)) 325 mg TID PO Last administered on 12:34; Admin Dose 325 MG; Start 12/13/16 at 13:00 Docusate Sodium (Colace) 100 mg BID PO Last administered on 12/19/16 08:46; Admin Dose 100 MG; Start 12/13/16 at 21:00 Acetaminophen (Tylenol Tab) 325 mg Q4H PRN PO PAIN AND OR ELEVATED TEMP; Start 12/13/16 at 14:30 Bisacodyl (Dulcolax Supp) 10 mg DAILY PRN [place] CONSTIPATION; Start 12/13/16 at 14 :30 Magnesium Hydroxide (Milk Of Mag) 30 ml DAILY PRN PO CONSTIPATION; Start at 14:30 Lactulose (Enulose) 20 gm DAILY PRN PO CONSTIPATION; Start 12/13/16 at 14:30 Senna (Senokot) 1 tab HS PO Last administered on 12/16/16 20:42; Admin Dose 1 TAB; Start 12/14/16 at 21:00 Silver Sulfadiazine (Thermazene 1% 25 Gm) 1 applic DAILY TOP Last administered on 12/19/16 08:47; Admin Dose 1 APPLIC; Start 12/14/16 at 14:00 CORRY SCHRADER MD Dec 19, 2016 12:38
[2016-12-19 20:00] VITALS: BP 104/55; RESP 18
[2016-12-19] MEDS: SENNA TAB PO SCH (21:00)
[2016-12-20 02:00] VITALS: BP 110/58; RESP 18
[2016-12-20 07:30] VITALS: BP 124/69; RESP 18
[2016-12-20] MEDS: ASPIRIN (EC) 325 MG TAB PO SCH ×2 (08:06→21:19)
[2016-12-20] MEDS: FERROUS SULFATE (EC) 325 MG TAB PO SCH ×3 (08:06→21:19)
[2016-12-20] MEDS: DOCUSATE SODIUM 100 MG CAP PO SCH ×2 (08:06→21:19)
[2016-12-20] MEDS: CELECOXIB 100 MG CAP PO SCH ×2 (08:06→21:19)
[2016-12-20] MEDS: FISH OIL 1,000 MG CAP PO SCH ×2 (08:06→21:18)
[2016-12-20] MEDS: GABAPENTIN 100 MG CAP PO SCH ×2 (08:06→21:19)
[2016-12-20] MEDS: HYDROCODONE/APAP (10/325) TAB PO PRN ×3 (08:06→16:54)
--- NOTE | 2016-12-20 09:14 | PN ---
Date/Time of Note Date/Time of Note DATE: 12/20/16 TIME: 09:08 Assessment/Plan VTE Prophylaxis VTE Prophylaxis Intervention: ambulation, SCD's, other (ASA 325mg) Lines/Catheters IV Catheter Type (from Nrsg): Saline Lock Urinary Cath still in place: No Assessment/Plan Assessment/Plan * Cont PT. * Pain meds prn * continue wound care. * Very pleased with ROM and progress given the extensive osteoporosis. Subjective 24 Hr Interval Summary Free Text/Dictation 56 y/o F s/p R TKA. Continues to progress. No complaints. ROM continues to improve. Exam/Review of Systems Vital Signs Vitals Vital Signs Date Time Temp Pulse Resp B/P Pulse Ox O2 Delivery O2 Flow Rate FiO2 12/20/16 07:30 98.2 88 18 124/69 97 Intake and Output 12/19/16 12/19/16 12/20/16 15:00 23:00 07:00 Intake Total 1000 ml 400 ml 750 ml Output Total 350 ml Balance 1000 ml 400 ml 400 ml Exam -Incision: Clean, Dry and Intact without any redness or drainage. Blistering showing significant improvement. -4+/5 Tibialis Anterior, EHL Gastrocnemius/Soleus and Peroneals -ROM Knee 5-90 degree ext/flex -Normal Sensation -Palpable DP/PT, Capillary Refill <2 secs -No Distal Edema -Negative Pasquale Sign/No calf pain -Toes Freely Movable Constitutional: alert, oriented, well developed Medications Medications Current Medications Acetaminophen/ Hydrocodone Bitart ([place] (10/325)) 1 tab Q4H PRN PO PAIN Last administered on 12/20/16 08:06; Admin Dose 1 TAB; Start 12/12/16 at 15:00 Zolpidem Tartrate (Ambien) 5 mg HS PRN PO INSOMNIA; Start 12/12/16 at 15:00 Aspirin (Ecotrin) 325 mg BID PO Last administered on 12/20/16 08:06; Admin Dose 325 MG; Start 12/12/16 at 21:00 Gabapentin (Neurontin) 100 mg BID PO Last administered on 12/20/16 08:06; Admin Dose 100 MG; Start 12/12/16 at 21:00 Celecoxib (Celebrex) 100 mg BID PO Last administered on 12/20/16 08:06; Admin Dose 100 MG; Start 12/12/16 at 21:00 Oxycodone HCl (Roxicodone) 5 mg Q4H PRN PO PAIN; Start 12/12/16 at 19:30 Oxycodone HCl (Roxicodone) 10 mg Q4H PRN PO PAIN Last administered on 00:02; Admin Dose 10 MG; Start 12/12/16 at 19:30 Fish Oil (Fish Oil) 1,000 mg BID PO Last administered on 12/20/16 08:06; Admin Dose 1,000 MG; Start 12/13/16 at 11:00 Ferrous Sulfate (Ferrous Sulfate (Ec)) 325 mg TID PO Last administered on 08:06; Admin Dose 325 MG; Start 12/13/16 at 13:00 Docusate Sodium (Colace) 100 mg BID PO Last administered on 12/20/16 08:06; Admin Dose 100 MG; Start 12/13/16 at 21:00 Acetaminophen (Tylenol Tab) 325 mg Q4H PRN PO PAIN AND OR ELEVATED TEMP; Start 12/13/16 at 14:30 Bisacodyl (Dulcolax Supp) 10 mg DAILY PRN [place] CONSTIPATION; Start 12/13/16 at 14 :30 Magnesium Hydroxide (Milk Of Mag) 30 ml DAILY PRN PO CONSTIPATION; Start at 14:30 Lactulose (Enulose) 20 gm DAILY PRN PO CONSTIPATION; Start 12/13/16 at 14:30 Senna (Senokot) 1 tab HS PO Last administered on 12/16/16 20:42; Admin Dose 1 TAB; Start 12/14/16 at 21:00 Silver Sulfadiazine (Thermazene 1% 25 Gm) 1 applic DAILY TOP Last administered on 12/19/16 08:47; Admin Dose 1 APPLIC; Start 12/14/16 at 14:00 ROSALVA PENA PA-C Dec 20, 2016 09:14
--- NOTE | 2016-12-20 14:00 | CONS ---
Date/Time of Note Date/Time of Note DATE: 12/20/16 TIME: 14:00 Consult Date/Type/Reason Admit Date/Time Dec 12, 2016 at 14:12 Subjective No new complaints Objective pulm-cta abd-soft min assist Vital Signs Date Time Temp Pulse Resp B/P Pulse Ox O2 Delivery O2 Flow Rate FiO2 12/20/16 07:30 98.2 88 18 124/69 97 Intake and Output 12/19/16 12/19/16 12/20/16 15:00 23:00 07:00 Intake Total 1000 ml 400 ml 750 ml Output Total 350 ml Balance 1000 ml 400 ml 400 ml Results/Medications Medications Current Medications Acetaminophen/ Hydrocodone Bitart ([place] (10/325)) 1 tab Q4H PRN PO PAIN Last administered on 12/20/16 12:24; Admin Dose 1 TAB; Start 12/12/16 at 15:00 Zolpidem Tartrate (Ambien) 5 mg HS PRN PO INSOMNIA; Start 12/12/16 at 15:00 Aspirin (Ecotrin) 325 mg BID PO Last administered on 12/20/16 08:06; Admin Dose 325 MG; Start 12/12/16 at 21:00 Gabapentin (Neurontin) 100 mg BID PO Last administered on 12/20/16 08:06; Admin Dose 100 MG; Start 12/12/16 at 21:00 Celecoxib (Celebrex) 100 mg BID PO Last administered on 12/20/16 08:06; Admin Dose 100 MG; Start 12/12/16 at 21:00 Oxycodone HCl (Roxicodone) 5 mg Q4H PRN PO PAIN; Start 12/12/16 at 19:30 Oxycodone HCl (Roxicodone) 10 mg Q4H PRN PO PAIN Last administered on 00:02; Admin Dose 10 MG; Start 12/12/16 at 19:30 Fish Oil (Fish Oil) 1,000 mg BID PO Last administered on 12/20/16 08:06; Admin Dose 1,000 MG; Start 12/13/16 at 11:00 Ferrous Sulfate (Ferrous Sulfate (Ec)) 325 mg TID PO Last administered on 12:23; Admin Dose 325 MG; Start 12/13/16 at 13:00 Docusate Sodium (Colace) 100 mg BID PO Last administered on 12/20/16 08:06; Admin Dose 100 MG; Start 12/13/16 at 21:00 Acetaminophen (Tylenol Tab) 325 mg Q4H PRN PO PAIN AND OR ELEVATED TEMP; Start 12/13/16 at 14:30 Bisacodyl (Dulcolax Supp) 10 mg DAILY PRN [place] CONSTIPATION; Start 12/13/16 at 14 :30 Magnesium Hydroxide (Milk Of Mag) 30 ml DAILY PRN PO CONSTIPATION; Start at 14:30 Lactulose (Enulose) 20 gm DAILY PRN PO CONSTIPATION; Start 12/13/16 at 14:30 Senna (Senokot) 1 tab HS PO Last administered on 12/16/16 20:42; Admin Dose 1 TAB; Start 12/14/16 at 21:00 Silver Sulfadiazine (Thermazene 1% 25 Gm) 1 applic DAILY TOP Last administered on 12/19/16 08:47; Admin Dose 1 APPLIC; Start 12/14/16 at 14:00 Assessment/Plan Additional Assessment/Plan Rehab- Rheumatoid arthritis affecting multiple joints status post right total knee arthroplasty. Continue rehab program Acute pain syndrome- continue current pain meds Anemia. JOE FERRERA MD Dec 20, 2016 14:00
[2016-12-20] MEDS: SILVER SULFADIAZINE 1% 25 GM CR TOP SCH (15:20)
--- NOTE | 2016-12-20 17:39 | PN ---
Date/Time of Note Date/Time of Note DATE: 12/20/16 TIME: 17:38 Assessment/Plan VTE Prophylaxis VTE Prophylaxis Intervention: ambulation Lines/Catheters IV [facility]from [facility] Saline Lock Urinary Cath still in place: No Assessment/Plan Problems: (1) Status post total right knee replacement Status: Acute Comment: Jigna with acute rehabilitation unit protocols progressing slowly but steadily. Within 1 week of discharge for home therapy Subjective 24 Hr Interval Summary Free Text/Dictation Patient reports she is doing well. Respiratory: no complaints Cardiovascular: no complaints Gastrointestinal: no complaints Exam/Review of Systems Vital Signs Vitals Vital Signs Date Time Temp Pulse Resp B/P Pulse Ox O2 Delivery O2 Flow Rate FiO2 12/20/16 07:30 98.2 88 18 124/69 97 Intake and Output 12/19/16 12/19/16 12/20/16 15:00 23:00 07:00 Intake Total 1000 ml 400 ml 750 ml Output Total 350 ml Balance 1000 ml 400 ml 400 ml Results No changes Medications Medications Current Medications Acetaminophen/ Hydrocodone Bitart ([place] (10/325)) 1 tab Q4H PRN PO PAIN Last administered on 12/20/16 16:54; Admin Dose 1 TAB; Start 12/12/16 at 15:00 Zolpidem Tartrate (Ambien) 5 mg HS PRN PO INSOMNIA; Start 12/12/16 at 15:00 Aspirin (Ecotrin) 325 mg BID PO Last administered on 12/20/16 08:06; Admin Dose 325 MG; Start 12/12/16 at 21:00 Gabapentin (Neurontin) 100 mg BID PO Last administered on 12/20/16 08:06; Admin Dose 100 MG; Start 12/12/16 at 21:00 Celecoxib (Celebrex) 100 mg BID PO Last administered on 12/20/16 08:06; Admin Dose 100 MG; Start 12/12/16 at 21:00 Oxycodone HCl (Roxicodone) 5 mg Q4H PRN PO PAIN; Start 12/12/16 at 19:30 Oxycodone HCl (Roxicodone) 10 mg Q4H PRN PO PAIN Last administered on 00:02; Admin Dose 10 MG; Start 12/12/16 at 19:30 Fish Oil (Fish Oil) 1,000 mg BID PO Last administered on 12/20/16 08:06; Admin Dose 1,000 MG; Start 12/13/16 at 11:00 Ferrous Sulfate (Ferrous Sulfate (Ec)) 325 mg TID PO Last administered on 12:23; Admin Dose 325 MG; Start 12/13/16 at 13:00 Docusate Sodium (Colace) 100 mg BID PO Last administered on 12/20/16 08:06; Admin Dose 100 MG; Start 12/13/16 at 21:00 Acetaminophen (Tylenol Tab) 325 mg Q4H PRN PO PAIN AND OR ELEVATED TEMP; Start 12/13/16 at 14:30 Bisacodyl (Dulcolax Supp) 10 mg DAILY PRN [place] CONSTIPATION; Start 12/13/16 at 14 :30 Magnesium Hydroxide (Milk Of Mag) 30 ml DAILY PRN PO CONSTIPATION; Start at 14:30 Lactulose (Enulose) 20 gm DAILY PRN PO CONSTIPATION; Start 12/13/16 at 14:30 Senna (Senokot) 1 tab HS PO Last administered on 12/16/16 20:42; Admin Dose 1 TAB; Start 12/14/16 at 21:00 Silver Sulfadiazine (Thermazene 1% 25 Gm) 1 applic DAILY TOP Last administered on 12/20/16 15:20; Admin Dose 1 APPLIC; Start 12/14/16 at 14:00 CORRY SCHRADER MD Dec 20, 2016 17:39
[2016-12-20 19:41] VITALS: BP 110/71; RESP 18
[2016-12-20] MEDS: SENNA TAB PO SCH (21:00)
[2016-12-21] MEDS: HYDROCODONE/APAP (10/325) TAB PO PRN ×3 (07:11→20:42)
[2016-12-21 07:53] VITALS: BP 138/63; RESP 18
[2016-12-21] MEDS: GABAPENTIN 100 MG CAP PO SCH ×2 (08:00→20:42)
[2016-12-21] MEDS: DOCUSATE SODIUM 100 MG CAP PO SCH ×2 (08:00→20:42)
[2016-12-21] MEDS: CELECOXIB 100 MG CAP PO SCH ×2 (08:00→20:42)
[2016-12-21] MEDS: ASPIRIN (EC) 325 MG TAB PO SCH ×2 (08:01→20:42)
[2016-12-21] MEDS: FISH OIL 1,000 MG CAP PO SCH ×2 (08:01→20:42)
[2016-12-21] MEDS: SILVER SULFADIAZINE 1% 25 GM CR TOP SCH (08:01)
[2016-12-21] MEDS: FERROUS SULFATE (EC) 325 MG TAB PO SCH ×3 (08:01→20:42)
--- NOTE | 2016-12-21 11:49 | CONS ---
Date/Time of Note Date/Time of Note DATE: 12/21/16 TIME: 11:49 Consult Date/Type/Reason Admit Date/Time Dec 12, 2016 at 14:12 Subjective Comfortable Objective pulm-cta cga ambulation Vital Signs Date Time Temp Pulse Resp B/P Pulse Ox O2 Delivery O2 Flow Rate FiO2 12/21/16 07:53 98.2 84 18 138/63 98 Intake and Output 12/20/16 12/20/16 12/21/16 15:00 23:00 07:00 Intake Total 620 ml 350 ml Output Total 1 ml 200 ml Balance 619 ml 150 ml Results/Medications Medications Current Medications Acetaminophen/ Hydrocodone Bitart ([place] (10/325)) 1 tab Q4H PRN PO PAIN Last administered on 12/21/16 07:11; Admin Dose 1 TAB; Start 12/12/16 at 15:00 Zolpidem Tartrate (Ambien) 5 mg HS PRN PO INSOMNIA; Start 12/12/16 at 15:00 Aspirin (Ecotrin) 325 mg BID PO Last administered on 12/21/16 08:01; Admin Dose 325 MG; Start 12/12/16 at 21:00 Gabapentin (Neurontin) 100 mg BID PO Last administered on 12/21/16 08:00; Admin Dose 100 MG; Start 12/12/16 at 21:00 Celecoxib (Celebrex) 100 mg BID PO Last administered on 12/21/16 08:00; Admin Dose 100 MG; Start 12/12/16 at 21:00 Oxycodone HCl (Roxicodone) 5 mg Q4H PRN PO PAIN; Start 12/12/16 at 19:30 Oxycodone HCl (Roxicodone) 10 mg Q4H PRN PO PAIN Last administered on 00:02; Admin Dose 10 MG; Start 12/12/16 at 19:30 Fish Oil (Fish Oil) 1,000 mg BID PO Last administered on 12/21/16 08:01; Admin Dose 1,000 MG; Start 12/13/16 at 11:00 Ferrous Sulfate (Ferrous Sulfate (Ec)) 325 mg TID PO Last administered on 08:01; Admin Dose 325 MG; Start 12/13/16 at 13:00 Docusate Sodium (Colace) 100 mg BID PO Last administered on 12/21/16 08:00; Admin Dose 100 MG; Start 12/13/16 at 21:00 Acetaminophen (Tylenol Tab) 325 mg Q4H PRN PO PAIN AND OR ELEVATED TEMP; Start 12/13/16 at 14:30 Bisacodyl (Dulcolax Supp) 10 mg DAILY PRN [place] CONSTIPATION; Start 12/13/16 at 14 :30 Magnesium Hydroxide (Milk Of Mag) 30 ml DAILY PRN PO CONSTIPATION; Start at 14:30 Lactulose (Enulose) 20 gm DAILY PRN PO CONSTIPATION; Start 12/13/16 at 14:30 Senna (Senokot) 1 tab HS PO Last administered on 12/16/16 20:42; Admin Dose 1 TAB; Start 12/14/16 at 21:00 Silver Sulfadiazine (Thermazene 1% 25 Gm) 1 applic DAILY TOP Last administered on 12/21/16 08:01; Admin Dose 1 APPLIC; Start 12/14/16 at 14:00 Assessment/Plan Additional Assessment/Plan Rehab- Rheumatoid arthritis affecting multiple joints status post right total knee arthroplasty. Continue rehab theapies Acute pain syndrome- continue current pain meds Anemia. JOE FERRERA MD Dec 21, 2016 11:49
[2016-12-21 20:00] VITALS: BP 109/65; RESP 18
[2016-12-21] MEDS: SENNA TAB PO SCH (21:00)
[2016-12-22 02:15] VITALS: BP 125/68; RESP 18
[2016-12-22 07:30] VITALS: BP 105/58; RESP 18
[2016-12-22] MEDS: ASPIRIN (EC) 325 MG TAB PO SCH ×2 (09:02→20:43)
[2016-12-22] MEDS: FISH OIL 1,000 MG CAP PO SCH ×2 (09:02→20:43)
[2016-12-22] MEDS: GABAPENTIN 100 MG CAP PO SCH ×2 (09:02→20:43)
[2016-12-22] MEDS: CELECOXIB 100 MG CAP PO SCH ×2 (09:02→20:43)
[2016-12-22] MEDS: DOCUSATE SODIUM 100 MG CAP PO SCH ×2 (09:02→20:43)
[2016-12-22] MEDS: FERROUS SULFATE (EC) 325 MG TAB PO SCH ×3 (09:03→20:43)
[2016-12-22] MEDS: SILVER SULFADIAZINE 1% 25 GM CR TOP SCH (09:03)
[2016-12-22] MEDS: HYDROCODONE/APAP (10/325) TAB PO PRN ×2 (09:03→20:46)
[2016-12-22 09:05] VITALS: BP 121/58; PULSE 88; RESP 16
--- NOTE | 2016-12-22 11:18 | CONS ---
Date/Time of Note Date/Time of Note DATE: 12/22/16 TIME: 11:18 Consult Date/Type/Reason Admit Date/Time Dec 12, 2016 at 14:12 Subjective Remains motivated Objective pulm-cta sba ambulation Vital Signs Date Time Temp Pulse Resp B/P Pulse Ox O2 Delivery O2 Flow Rate FiO2 12/22/16 09:05 88 16 121/58 98 Room Air 12/22/16 07:30 98.1 Intake and Output 12/21/16 12/21/16 12/22/16 14:59 22:59 06:59 Intake Total 900 ml 500 ml 450 ml Balance 900 ml 500 ml 450 ml Results/Medications Medications Current Medications Acetaminophen/ Hydrocodone Bitart ([place] (10/325)) 1 tab Q4H PRN PO PAIN Last administered on 12/22/16 09:03; Admin Dose 1 TAB; Start 12/12/16 at 15:00 Zolpidem Tartrate (Ambien) 5 mg HS PRN PO INSOMNIA; Start 12/12/16 at 15:00 Aspirin (Ecotrin) 325 mg BID PO Last administered on 12/22/16 09:02; Admin Dose 325 MG; Start 12/12/16 at 21:00 Gabapentin (Neurontin) 100 mg BID PO Last administered on 12/22/16 09:02; Admin Dose 100 MG; Start 12/12/16 at 21:00 Celecoxib (Celebrex) 100 mg BID PO Last administered on 12/22/16 09:02; Admin Dose 100 MG; Start 12/12/16 at 21:00 Oxycodone HCl (Roxicodone) 5 mg Q4H PRN PO PAIN; Start 12/12/16 at 19:30 Oxycodone HCl (Roxicodone) 10 mg Q4H PRN PO PAIN Last administered on 00:02; Admin Dose 10 MG; Start 12/12/16 at 19:30 Fish Oil (Fish Oil) 1,000 mg BID PO Last administered on 12/22/16 09:02; Admin Dose 1,000 MG; Start 12/13/16 at 11:00 Ferrous Sulfate (Ferrous Sulfate (Ec)) 325 mg TID PO Last administered on 09:03; Admin Dose 325 MG; Start 12/13/16 at 13:00 Docusate Sodium (Colace) 100 mg BID PO Last administered on 12/22/16 09:02; Admin Dose 100 MG; Start 12/13/16 at 21:00 Acetaminophen (Tylenol Tab) 325 mg Q4H PRN PO PAIN AND OR ELEVATED TEMP; Start 12/13/16 at 14:30 Bisacodyl (Dulcolax Supp) 10 mg DAILY PRN [place] CONSTIPATION; Start 12/13/16 at 14 :30 Magnesium Hydroxide (Milk Of Mag) 30 ml DAILY PRN PO CONSTIPATION; Start at 14:30 Lactulose (Enulose) 20 gm DAILY PRN PO CONSTIPATION; Start 12/13/16 at 14:30 Senna (Senokot) 1 tab HS PO Last administered on 12/16/16 20:42; Admin Dose 1 TAB; Start 12/14/16 at 21:00 Silver Sulfadiazine (Thermazene 1% 25 Gm) 1 applic DAILY TOP Last administered on 12/22/16 09:03; Admin Dose 1 APPLIC; Start 12/14/16 at 14:00 Assessment/Plan Additional Assessment/Plan Rehab- Rheumatoid arthritis affecting multiple joints status post right total knee arthroplasty. Good progress with rehab program, anticipate dc home 12/25 Acute pain syndrome- continue current pain meds Anemia. JOE FERRERA MD Dec 22, 2016 11:18
[2016-12-22 11:55] LABS: BASOPHILS % 0.4 % (0.0-2.0); EOSINOPHILS # 0.2 10^3/ul (0.0-0.5); EOSINOPHILS % 2.2 % (0.0-7.0); HEMOGLOBIN 9.9 g/dl (12.0-16.0); LYMPHOCYTES # 1.5 10^3/ul (0.8-2.9); LYMPHOCYTES % 18.5 % (15.0-51.0); MEAN CORPUSCULAR HEMOGLOBIN 26.4 pg (29.0-33.0); MEAN CORPUSCULAR HGB CONC 30.9 g/dl (32.0-37.0); MEAN CORPUSCULAR VOLUME 85.3 fl (82.0-101.0); MEAN PLATELET VOLUME 9.2 fl (7.4-10.4); MONOCYTE # 0.6 10^3/ul (0.3-0.9); MONOCYTES % 6.8 % (0.0-11.0); NEUTROPHILS % 71.9 % (39.0-77.0); PLATELET COUNT 547 10^3/UL (140-415); RED BLOOD COUNT 3.75 10^6/ul (4.20-5.40); RED CELL DISTRIBUTION WIDTH 20.7 % (11.5-14.5); WHITE BLOOD COUNT 8.1 10^3/ul (4.8-10.8)
--- NOTE | 2016-12-22 13:15 | PN ---
Date/Time of Note Date/Time of Note DATE: 12/22/16 TIME: 13:13 Assessment/Plan VTE Prophylaxis VTE Prophylaxis Intervention: heparin Lines/Catheters IV [facility]from [facility] Saline Lock Urinary Cath still in place: No Assessment/Plan Problems: (1) Status post total right knee replacement Status: Acute Comment: Watch carefully and reche[facility] , may need Vanco course Subjective 24 Hr Interval Summary Free Text/Dictation Patient reports that right knee feels warm Constitutional: no complaints Respiratory: no complaints Cardiovascular: no complaints Gastrointestinal: no complaints Exam/Review of Systems Vital Signs Vitals Vital Signs Date Time Temp Pulse Resp B/P Pulse Ox O2 Delivery O2 Flow Rate FiO2 12/22/16 09:05 88 16 121/58 98 Room Air 12/22/16 07:30 98.1 Intake and Output 12/21/16 12/21/16 12/22/16 14:59 22:59 06:59 Intake Total 900 ml 500 ml 450 ml Balance 900 ml 500 ml 450 ml Exam Constitutional: alert, oriented Respiratory: clear to auscultation, normal air movement Cardiovascular: nl pulses, regular rate and rhythm Extremities: other (warmth and ?erythema at operative site) Results Result Diagram: 12/22/16 1115 Results 24 hrs Laboratory Tests Test 12/22/16 11:15 White Blood Count 8.1 Red Blood Count 3.75 L Hemoglobin 9.9 L Hematocrit 32.0 L Mean Corpuscular Volume 85.3 Mean Corpuscular Hemoglobin 26.4 L Mean Corpuscular Hemoglobin Concent 30.9 L Red Cell Distribution Width 20.7 H Platelet Count 547 H Mean Platelet Volume 9.2 Neutrophils % 71.9 Lymphocytes % 18.5 Monocytes % 6.8 Eosinophils % 2.2 Basophils % 0.4 Nucleated Red Blood Cells % 0.0 Neutrophils # (Manual) 5.8 Lymphocytes # 1.5 Monocytes # 0.6 Eosinophils # 0.2 Basophils # 0.0 Nucleated Red Blood Cells # 0.0 Medications Medications Current Medications Acetaminophen/ Hydrocodone Bitart ([place] (10/325)) 1 tab Q4H PRN PO PAIN Last administered on 12/22/16 09:03; Admin Dose 1 TAB; Start 12/12/16 at 15:00 Zolpidem Tartrate (Ambien) 5 mg HS PRN PO INSOMNIA; Start 12/12/16 at 15:00 Aspirin (Ecotrin) 325 mg BID PO Last administered on 12/22/16 09:02; Admin Dose 325 MG; Start 12/12/16 at 21:00 Gabapentin (Neurontin) 100 mg BID PO Last administered on 12/22/16 09:02; Admin Dose 100 MG; Start 12/12/16 at 21:00 Celecoxib (Celebrex) 100 mg BID PO Last administered on 12/22/16 09:02; Admin Dose 100 MG; Start 12/12/16 at 21:00 Oxycodone HCl (Roxicodone) 5 mg Q4H PRN PO PAIN; Start 12/12/16 at 19:30 Oxycodone HCl (Roxicodone) 10 mg Q4H PRN PO PAIN Last administered on 00:02; Admin Dose 10 MG; Start 12/12/16 at 19:30 Fish Oil (Fish Oil) 1,000 mg BID PO Last administered on 12/22/16 09:02; Admin Dose 1,000 MG; Start 12/13/16 at 11:00 Ferrous Sulfate (Ferrous Sulfate (Ec)) 325 mg TID PO Last administered on 12:18; Admin Dose 325 MG; Start 12/13/16 at 13:00 Docusate Sodium (Colace) 100 mg BID PO Last administered on 12/22/16 09:02; Admin Dose 100 MG; Start 12/13/16 at 21:00 Acetaminophen (Tylenol Tab) 325 mg Q4H PRN PO PAIN AND OR ELEVATED TEMP; Start 12/13/16 at 14:30 Bisacodyl (Dulcolax Supp) 10 mg DAILY PRN [place] CONSTIPATION; Start 12/13/16 at 14 :30 Magnesium Hydroxide (Milk Of Mag) 30 ml DAILY PRN PO CONSTIPATION; Start at 14:30 Lactulose (Enulose) 20 gm DAILY PRN PO CONSTIPATION; Start 12/13/16 at 14:30 Senna (Senokot) 1 tab HS PO Last administered on 12/16/16 20:42; Admin Dose 1 TAB; Start 12/14/16 at 21:00 Silver Sulfadiazine (Thermazene 1% 25 Gm) 1 applic DAILY TOP Last administered on 12/22/16 09:03; Admin Dose 1 APPLIC; Start 12/14/16 at 14:00 CORRY SCHRADER MD Dec 22, 2016 13:15
[2016-12-22 14:00] VITALS: BP 107/67; RESP 18
[2016-12-22 20:00] VITALS: BP 113/70; RESP 18
[2016-12-22] MEDS: SENNA TAB PO SCH (20:43)
[2016-12-23 02:00] VITALS: BP 130/61; RESP 18
[2016-12-23 06:09] LABS: BASOPHILS % 0.5 % (0.0-2.0); EOSINOPHILS # 0.3 10^3/ul (0.0-0.5); EOSINOPHILS % 3.5 % (0.0-7.0); HEMATOCRIT 28.6 % (37.0-47.0); HEMOGLOBIN 8.7 g/dl (12.0-16.0); LYMPHOCYTES # 1.9 10^3/ul (0.8-2.9); LYMPHOCYTES % 24.9 % (15.0-51.0); MEAN CORPUSCULAR HEMOGLOBIN 25.8 pg (29.0-33.0); MEAN CORPUSCULAR HGB CONC 30.4 g/dl (32.0-37.0); MEAN CORPUSCULAR VOLUME 84.9 fl (82.0-101.0); MEAN PLATELET VOLUME 9.2 fl (7.4-10.4); MONOCYTE # 0.8 10^3/ul (0.3-0.9); MONOCYTES % 10.4 % (0.0-11.0); NEUTROPHILS % 60.4 % (39.0-77.0); PLATELET COUNT 492 10^3/UL (140-415); RED BLOOD COUNT 3.37 10^6/ul (4.20-5.40); RED CELL DISTRIBUTION WIDTH 20.9 % (11.5-14.5); WHITE BLOOD COUNT 7.7 10^3/ul (4.8-10.8)
[2016-12-23 06:39] LABS: ALBUMIN 3.3 g/dl (3.3-4.9); ALBUMIN/GLOBULIN RATIO 0.84; BILIRUBIN,INDIRECT 0.1 mg/dl (0-1.1); BILIRUBIN,TOTAL 0.1 mg/dl (0.2-1.3); CALCIUM 9.1 mg/dl (8.4-10.2); CREATININE 0.45 mg/dl (0.44-1.00); POTASSIUM 4.4 mmol/L (3.5-5.1); TOTAL PROTEIN 7.2 g/dl (6.1-8.1)
[2016-12-23 07:30] VITALS: BP 115/64; RESP 20
[2016-12-23] MEDS: CELECOXIB 100 MG CAP PO SCH ×2 (08:57→20:38)
[2016-12-23] MEDS: FERROUS SULFATE (EC) 325 MG TAB PO SCH ×3 (08:57→20:39)
[2016-12-23] MEDS: DOCUSATE SODIUM 100 MG CAP PO SCH ×2 (08:57→20:38)
[2016-12-23] MEDS: FISH OIL 1,000 MG CAP PO SCH ×2 (08:57→20:39)
[2016-12-23] MEDS: ASPIRIN (EC) 325 MG TAB PO SCH ×2 (08:57→20:39)
[2016-12-23] MEDS: GABAPENTIN 100 MG CAP PO SCH ×2 (08:57→20:39)
[2016-12-23] MEDS: SILVER SULFADIAZINE 1% 25 GM CR TOP SCH (08:58)
[2016-12-23] MEDS: HYDROCODONE/APAP (10/325) TAB PO PRN ×2 (09:03→20:39)
[2016-12-23] MEDS ORDERED: VANCOMYCIN IV PER PHARMACY XX SCH (19:00)
[2016-12-23 19:42] VITALS: BP 109/61; RESP 16
[2016-12-23] MEDS ORDERED: VANCOMYCIN 1 GM in NS 250 ML IVPB SCH (20:30)
[2016-12-23] MEDS: SENNA TAB PO SCH (20:40)
[2016-12-24 02:12] VITALS: BP 102/56; RESP 20
[2016-12-24 07:30] VITALS: BP 114/62; RESP 18
[2016-12-24] MEDS ORDERED: VANCOMYCIN 750 MG in SOD CHLORIDE 0.9% 150 ML IVPB SCH (08:00)
[2016-12-24] MEDS: FERROUS SULFATE (EC) 325 MG TAB PO SCH ×3 (08:08→21:02)
[2016-12-24] MEDS: FISH OIL 1,000 MG CAP PO SCH ×2 (08:08→21:02)
[2016-12-24] MEDS: ASPIRIN (EC) 325 MG TAB PO SCH ×2 (08:08→21:01)
[2016-12-24] MEDS: DOCUSATE SODIUM 100 MG CAP PO SCH ×2 (08:08→21:02)
[2016-12-24] MEDS: GABAPENTIN 100 MG CAP PO SCH ×2 (08:09→21:02)
[2016-12-24] MEDS: CELECOXIB 100 MG CAP PO SCH ×2 (08:09→21:02)
--- NOTE | 2016-12-24 08:12 | PN ---
Date/Time of Note Date/Time of Note DATE: 12/24/16 TIME: 08:10 Assessment/Plan VTE Prophylaxis VTE Prophylaxis Intervention: heparin Lines/Catheters IV Catheter Type (from Nrs): Saline Lock Urinary Cath still in place: No Assessment/Plan Problems: (1) Iron deficiency anemia Status: Chronic Comment: Continues with replacement therapy progressing nicely Qualifiers: Iron deficiency anemia type: unspecified iron deficiency Qualified Code: D50.9 - Iron deficiency anemia, unspecified iron deficiency anemia type (2) Rheumatoid arthritis Status: Chronic Comment: Stable at this time. Outpatient treatment as per her primary chief engineer's helper Qualifiers: Rheumatoid arthritis location: multiple sites Rheumatoid factor presence: with rheumatoid factor Qualified Code: M05.79 - Rheumatoid arthritis involving multiple sites with positive rheumatoid factor (3) Status post total right knee replacement Status: Acute Comment: Progressing well with physical therapy and acute rehabilitation unit. Anticipate discharge in the next week Subjective 24 Hr Interval Summary Free Text/Dictation She reports she is feeling better today. Sensation warmth and the actual warmth of the knee have improved. No fevers chills or sweats. Constitutional: no complaints Respiratory: no complaints Cardiovascular: no complaints Gastrointestinal: no complaints Exam/Review of Systems Vital Signs Vitals Vital Signs Date Time Temp Pulse Resp B/P Pulse Ox O2 Delivery O2 Flow Rate FiO2 12/24/16 02:12 98.3 80 20 102/56 98 12/22/16 09:05 Room Air Intake and Output 12/23/16 12/23/16 12/24/16 14:59 22:59 06:59 Intake Total 450 ml 810 ml 300 ml Output Total 400 ml Balance 450 ml 410 ml 300 ml Exam Constitutional: alert, oriented Neck: non-tender, supple Cardiovascular: nl pulses, regular rate and rhythm Gastrointestinal: nl liver, spleen, non-tender, soft Extremities: normal pulses, other (Erythema and warmth of decreased without drug intervention) Results Result Diagram: 12/23/16 0539 12/23/16 0539 Medications Medications Current Medications Acetaminophen/ Hydrocodone Bitart ([place] (10/325)) 1 tab Q4H PRN PO PAIN Last administered on 12/23/16t 20:39; Admin Dose 1 TAB; Start 12/12/16 at 15:00 Zolpidem Tartrate (Ambien) 5 mg HS PRN PO INSOMNIA; Start 12/12/16 at 15:00 Aspirin (Ecotrin) 325 mg BID PO Last administered on 12/23/16 20:39; Admin Dose 325 MG; Start 12/12/16 at 21:00 Gabapentin (Neurontin) 100 mg BID PO Last administered on 12/23/16 20:39; Admin Dose 100 MG; Start 12/12/16 at 21:00 Celecoxib (Celebrex) 100 mg BID PO Last administered on 12/23/16 20:38; Admin Dose 100 MG; Start 12/12/16 at 21:00 Oxycodone HCl (Roxicodone) 5 mg Q4H PRN PO PAIN; Start 12/12/16 at 19:30 Oxycodone HCl (Roxicodone) 10 mg Q4H PRN PO PAIN Last administered on 00:02; Admin Dose 10 MG; Start 12/12/16 at 19:30 Fish Oil (Fish Oil) 1,000 mg BID PO Last administered on 12/23/16 20:39; Admin Dose 1,000 MG; Start 12/13/16 at 11:00 Ferrous Sulfate (Ferrous Sulfate (Ec)) 325 mg TID PO Last administered on 20:39; Admin Dose 325 MG; Start 12/13/16 at 13:00 Docusate Sodium (Colace) 100 mg BID PO Last administered on 12/23/16 20:38; Admin Dose 100 MG; Start 12/13/16 at 21:00 Acetaminophen (Tylenol Tab) 325 mg Q4H PRN PO PAIN AND OR ELEVATED TEMP; Start 12/13/16 at 14:30 Bisacodyl (Dulcolax Supp) 10 mg DAILY PRN [place] CONSTIPATION; Start 12/13/16 at 14 :30 Magnesium Hydroxide (Milk Of Mag) 30 ml DAILY PRN PO CONSTIPATION; Start at 14:30 Lactulose (Enulose) 20 gm DAILY PRN PO CONSTIPATION; Start 12/13/16 at 14:30 Senna (Senokot) 1 tab HS PO Last administered on 12/22/16 20:43; Admin Dose 1 TAB; Start 12/14/16 at 21:00 Silver Sulfadiazine 1 applic 1 applic DAILY TOP Last administered on 12/23/16 08:58; Admin Dose 1 APPLIC; Start 12/14/16 at 14:00 Vancomycin HCl 250 ml @ 125 mls/hr ONCE IVPB ; Start 12/23/16 at 20:30; Status Future Hold Vancomycin HCl/ Sodium Chloride (Vancocin/NS) 150 ml @ 75 mls/hr Q12H IVPB ; Start 12/24/16 at 08:00; Status Future Hold CORRY SCHRADER MD Dec 24, 2016 08:12
[2016-12-24] MEDS: HYDROCODONE/APAP (10/325) TAB PO PRN ×2 (08:14→21:02)
--- NOTE | 2016-12-24 09:06 | CONS ---
Date/Time of Note Date/Time of Note DATE: 12/24/16 TIME: 09:05 Consult Date/Type/Reason Admit Date/Time Dec 12, 2016 at 14:12 Objective Vital Signs Date Time Temp Pulse Resp B/P Pulse Ox O2 Delivery O2 Flow Rate FiO2 12/24/16 02:12 98.3 80 20 102/56 98 12/22/16 09:05 Room Air Intake and Output 12/23/16 12/23/16 12/24/16 15:00 23:00 07:00 Intake Total 450 ml 810 ml 300 ml Output Total 400 ml Balance 450 ml 410 ml 300 ml INTERDISCIPLINARY TEAM CONFERENCE BOWEL- Cont BLADDER-Cont SKIN- intact OT- DRESSING-s BATHING-s TOILETING-s PT- BED MOBILITY-s TRANSFERS-s AMBULATION-s 150 feet A/P- Interdisciplinary team conference held today. Please see interdisciplinary sheet. Working toward d.c. on 12/25 with post discharge follow up of physical therapy, occupational therapy. Results/Medications Result Diagram: 12/23/16 0539 12/23/16 0539 Medications Current Medications Acetaminophen/ Hydrocodone Bitart ([place] (10/325)) 1 tab Q4H PRN PO PAIN Last administered on 12/24/16 08:14; Admin Dose 1 TAB; Start 12/12/16 at 15:00 Zolpidem Tartrate (Ambien) 5 mg HS PRN PO INSOMNIA; Start 12/12/16 at 15:00 Aspirin (Ecotrin) 325 mg BID PO Last administered on 12/24/16 08:08; Admin Dose 325 MG; Start 12/12/16 at 21:00 Gabapentin (Neurontin) 100 mg BID PO Last administered on 12/24/16 08:09; Admin Dose 100 MG; Start 12/12/16 at 21:00 Celecoxib (Celebrex) 100 mg BID PO Last administered on 12/24/16 08:09; Admin Dose 100 MG; Start 12/12/16 at 21:00 Oxycodone HCl (Roxicodone) 5 mg Q4H PRN PO PAIN; Start 12/12/16 at 19:30 Oxycodone HCl (Roxicodone) 10 mg Q4H PRN PO PAIN Last administered on 00:02; Admin Dose 10 MG; Start 12/12/16 at 19:30 Fish Oil (Fish Oil) 1,000 mg BID PO Last administered on 12/24/16 08:08; Admin Dose 1,000 MG; Start 12/13/16 at 11:00 Ferrous Sulfate (Ferrous Sulfate (Ec)) 325 mg TID PO Last administered on 08:08; Admin Dose 325 MG; Start 12/13/16 at 13:00 Docusate Sodium (Colace) 100 mg BID PO Last administered on 12/24/16 08:08; Admin Dose 100 MG; Start 12/13/16 at 21:00 Acetaminophen (Tylenol Tab) 325 mg Q4H PRN PO PAIN AND OR ELEVATED TEMP; Start 12/13/16 at 14:30 Bisacodyl (Dulcolax Supp) 10 mg DAILY PRN [place] CONSTIPATION; Start 12/13/16 at 14 :30 Magnesium Hydroxide (Milk Of Mag) 30 ml DAILY PRN PO CONSTIPATION; Start at 14:30 Lactulose (Enulose) 20 gm DAILY PRN PO CONSTIPATION; Start 12/13/16 at 14:30 Senna (Senokot) 1 tab HS PO Last administered on 12/22/16 20:43; Admin Dose 1 TAB; Start 12/14/16 at 21:00 Silver Sulfadiazine (Thermazene 1% 25 Gm) 1 applic DAILY TOP Last administered on 12/23/16 08:58; Admin Dose 1 APPLIC; Start 12/14/16 at 14:00 JOE FERRERA MD Dec 24, 2016 09:05
[2016-12-24 14:00] VITALS: BP 96/52; RESP 20
[2016-12-24] MEDS: SILVER SULFADIAZINE 1% 25 GM CR TOP SCH (16:56)
[2016-12-24 19:35] VITALS: BP 123/56; RESP 18
[2016-12-24] MEDS: SENNA TAB PO SCH (21:02)
[2016-12-25 02:30] VITALS: BP 120/68; RESP 18
--- NOTE | 2016-12-25 07:49 | PN ---
Date/Time of Note Date/Time of Note DATE: 12/25/16 TIME: 07:46 Assessment/Plan VTE Prophylaxis VTE Prophylaxis Intervention: ambulation, other (Aspirin 325 mg twice daily) Lines/Catheters IV Catheter Type [facility]from [facility]): [facility] Urinary Cath still in place: No Assessment/Plan Problems: (1) Rheumatoid arthritis Status: Chronic Qualifiers: Rheumatoid arthritis location: multiple sites Rheumatoid factor presence: with rheumatoid factor Qualified Code: M05.79 - Rheumatoid arthritis involving multiple sites with positive rheumatoid factor (2) Status post total right knee replacement Status: Acute Assessment/Plan * Patient is scheduled to be discharged today. Okay from an orthopedic standpoint to discharge home with home health for an additional expected 2 weeks. * Staple removal performed today. Steri-Strips applied. Wound care instructions discussed. * Continue DVT prophylaxis with aspirin 325 mg twice daily for expected 6 weeks status post surgery date. * Follow-up in office for repeat evaluation. Subjective 24 Hr Interval Summary Free Text/Dictation 56-year-old female status post right total knee arthroplasty. Patient has been doing well while in rehab. Continues to improve. Upon walking into the room today patient is weightbearing with assistance using front wheeled walker. Walking okay with no pain. Patient has made significant improvements in regards to rehabilitation status post surgery. Constitutional: no complaints Exam/Review of Systems Vital Signs Vitals Vital Signs Date Time Temp Pulse Resp B/P Pulse Ox O2 Delivery O2 Flow Rate FiO2 12/25/16 02:30 98.6 79 18 120/68 98 12/22/16 09:05 Room Air Intake and Output 12/24/16 12/24/16 12/25/16 15:00 23:00 07:00 Intake Total 620 ml 360 ml Balance 620 ml 360 ml Exam -Incision: Clean, Dry and Intact without any redness or drainage. Blistering primarily to the distal third of the surgical wound has significantly improved and healing well with no signs of infection. -5/5 Tibialis Anterior, EHL Gastrocnemius/Soleus and Peroneals -Normal Sensation -Palpable DP/PT, Capillary Refill <2 secs -No Distal Edema -Negative Pasquale Sign/No calf pain -Toes Freely Movable Constitutional: alert, oriented, well developed Results Result Diagram: 12/23/16 0539 12/23/16 0539 Medications Medications Current Medications Acetaminophen/ Hydrocodone Bitart ([place] (10/325)) 1 tab Q4H PRN PO PAIN Last administered on 12/24/16 21:02; Admin Dose 1 TAB; Start 12/12/16 at 15:00 Zolpidem Tartrate (Ambien) 5 mg HS PRN PO INSOMNIA; Start 12/12/16 at 15:00 Aspirin (Ecotrin) 325 mg BID PO Last administered on 12/24/16 21:01; Admin Dose 325 MG; Start 12/12/16 at 21:00 Gabapentin (Neurontin) 100 mg BID PO Last administered on 12/24/16 21:02; Admin Dose 100 MG; Start 12/12/16 at 21:00 Celecoxib (Celebrex) 100 mg BID PO Last administered on 12/24/16 21:02; Admin Dose 100 MG; Start 12/12/16 at 21:00 Oxycodone HCl (Roxicodone) 5 mg Q4H PRN PO PAIN; Start 12/12/16 at 19:30 Oxycodone HCl (Roxicodone) 10 mg Q4H PRN PO PAIN Last administered on 00:02; Admin Dose 10 MG; Start 12/12/16 at 19:30 Fish Oil (Fish Oil) 1,000 mg BID PO Last administered on 12/24/16 21:02; Admin Dose 1,000 MG; Start 12/13/16 at 11:00 Ferrous Sulfate (Ferrous Sulfate (Ec)) 325 mg TID PO Last administered on 21:02; Admin Dose 325 MG; Start 12/13/16 at 13:00 Docusate Sodium (Colace) 100 mg BID PO Last administered on 12/24/16 21:02; Admin Dose 100 MG; Start 12/13/16 at 21:00 Acetaminophen (Tylenol Tab) 325 mg Q4H PRN PO PAIN AND OR ELEVATED TEMP; Start 12/13/16 at 14:30 Bisacodyl (Dulcolax Supp) 10 mg DAILY PRN SC CONSTIPATION; Start 12/13/16 at 14 :30 Magnesium Hydroxide (Milk Of Mag) 30 ml DAILY PRN PO CONSTIPATION; Start at 14:30 Lactulose (Enulose) 20 gm DAILY PRN PO CONSTIPATION; Start 12/13/16 at 14:30 Senna (Senokot) 1 tab HS PO Last administered on 12/24/16 21:02; Admin Dose 1 TAB; Start 12/14/16 at 21:00 Silver Sulfadiazine (Thermazene 1% 25 Gm) 1 applic DAILY TOP Last administered on 12/24/16 16:56; Admin Dose 1 APPLIC; Start 12/14/16 at 14:00 ROSALVA PENA PA-C Dec 25, 2016 07:49
[2016-12-25] MEDS: FISH OIL 1,000 MG CAP PO SCH (08:38)
[2016-12-25] MEDS: DOCUSATE SODIUM 100 MG CAP PO SCH (08:38)
[2016-12-25] MEDS: CELECOXIB 100 MG CAP PO SCH (08:38)
[2016-12-25] MEDS: FERROUS SULFATE (EC) 325 MG TAB PO SCH (08:39)
[2016-12-25] MEDS: GABAPENTIN 100 MG CAP PO SCH (08:39)
[2016-12-25] MEDS: ASPIRIN (EC) 325 MG TAB PO SCH (08:39)
[2016-12-25] MEDS: HYDROCODONE/APAP (10/325) TAB PO PRN (08:39)
[2016-12-25] MEDS: SILVER SULFADIAZINE 1% 25 GM CR TOP SCH (08:43)
[2016-12-25 09:30] VITALS: BP 126/69; RESP 18
--- NOTE | 2016-12-25 12:26 | DS ---
Date/Time of Note Date/Time of Note DATE: 12/25/16 TIME: 12:25 Discharge Summary Admission/Discharge Info Admit Date/Time Dec 12, 2016 at 14:12 Discharge Date/Time Discharge Diagnosis 1. Rheumatoid arthritis affecting multiple joints status post right total knee arthroplasty. 2. Improved pain 3. Improvements in self-care and mobility. Patient Condition: Good Hospital Course Patient was admitted for comprehensive interdisciplinary acute rehabilitation. Patient made steady functional gains and improved from a manjeet/mod level to a Modified Independent level for self care and mobility, including ambulating over 150 feet with the use of a front wheeled walker. Patient is being discharged home with recommendations for home health PT and OT follow up. DME recommendations: FWW; BSC; Shower Chair Patient will follow up with PMD upon DC. Home Meds No Active Prescriptions or Reported Meds Primary Care Provider Not On Staff Doctor JOE FERRERA MD Dec 25, 2016 12:25
== END 2016-12-25 11:30 | disposition home health service (06) | DRG 561 ==
LOC: VRC 14:12
PROVIDERS: ADMIT Physical Medicine & Rehabilitation; ATTEND Internal Medicine
PROC: F08Z1ZZ Dressing Techniques Treatment (ICD-10-PCS; principal; 2016-12-12)
PROC: F08Z0ZZ Bathing/Showering Techniques Treatment (ICD-10-PCS; 2016-12-12)
PROC: F08Z2ZZ Grooming/Personal Hygiene Treatment (ICD-10-PCS; 2016-12-12)
PROC: F07Z5ZZ Bed Mobility Treatment (ICD-10-PCS; 2016-12-12)
PROC: F07Z8ZZ Transfer Training Treatment (ICD-10-PCS; 2016-12-12)
PROC: F07Z9ZZ Gait Training/Functional Ambulation Treatment (ICD-10-PCS; 2016-12-12)
DX: Z47.1 Aftercare following joint replacement surgery (principal); D50.9 Iron deficiency anemia, unspecified; Z96.651 Presence of right artificial knee joint; M81.0 Age-related osteoporosis without current pathological fracture; M19.90 Unspecified osteoarthritis, unspecified site; M06.9 Rheumatoid arthritis, unspecified
CPT/HCPCS: 80048; 80053; 81001; 81003; 82728; 83540; 85025; 85651; 86803; 87040; 87081; 87086; 87340; 97110; 97112; 97116; 97150; 97163; 97167; 97530; 97535; J3370

== ENCOUNTER → 2017-01-17 | Outpatient (CLI) | payer BC ==
--- NOTE | 2017-01-17 12:26 | PN ---
Date/Time of Note Date/Time of Note DATE: 01/17/17 TIME: 12:21 Outpatient Progress Note Chief Complaint 6 week postoperative appointment HPI 56-year-old female presents today for 6 week postop Appointment status post right total knee on 12/06/2016. Patient states that she has been doing well. Denies any pain to the right knee. She continues to improve in regards to functionality as she was unable to weight-bear prior to surgery and now she is walking with front wheeled walker. Should her range of motion has improved. Patient is very pleased status post surgery. Denies any falls or injury. Denies any chest pain/tightness, shortness of breath or calf pain. Revision prosthesis was used on this patient's primary total knee given significant decrease of calcium and osteopenia. Review of Systems Const: No Fever, no chills, no Fatigue, normal appetite, no diaphoresis. Resp: No SOB, no wheezing, no chest pain. CV: No chest pain, no palpitaions, no MEZA. Physical Exam Blood pressure is 111/61, temperature is 98.4, pulse is 89, respiratory rate is 12, height is 5 foot 2 inches, weight is 100 pounds General Appearance: well-developed, well-nourished, in no acute distress. Right knee: Surgical wound is healing well. Patient is able to flex up to 110 on exam today. Full extension. Assisted ambulation using front wheeled walker. Normal sensory examination to light touch. 4+/5 strength on resistance with flexion and extension. Imaging X-ray performed on 01/17/2017 of the right knee shows revision prosthesis stem in place. Prosthesis is stable. No signs of any acute injury or fracture. Significant osteopenia is observed. Allergies Coded Allergies: shrimp (Verified Allergy, Unknown, SOB,FACIAL SWELLING, 12/05/16) Assessment/Plan Problems: (1) Status post total right knee replacement -Patient progressing well -Surgical wound continues to heal well. -No signs of infection or DVT on exam. -X-rays showing no abnormalities in regards to prosthesis attachment to bone. -Range of motion is improved status post total knee replacement. -Antibiotic prophylaxis card provided today. -Patient was advised to continue with knee immobilizer while she is walking outside of the house for an additional 4 weeks. While she is in the house she does not need to use knee immobilizer. -Gabapentin 200 mg 1 tab p.o. twice daily #60 tablets with one refill provided today. -Follow-up in 6 weeks for repeat evaluation. -Prescription for physical therapy was also provided today. Dental prophylaxis discussed in detail today. Patient given prophylaxis card with antibiotic options. Should patient have allergy to specific medication ( eg penicillin) alternative options are also provided on the card. Patient is aware that antibiotics should be taken prior to any procedures to prevent increased risk of infection to the joint. Patient is aware that this will be for the rest of their life. Patient states understanding and compliance. Dr. Andrade was present for examination and agrees with plan. Medications Home Meds No Active Prescriptions or Reported Meds ROSALVA PENA PA-C Jan 17, 2017 12:26
--- NOTE | 2017-01-17 17:08 | RADRPT ---
PROCEDURE: Right knee radiographs. CLINICAL INDICATION: Right knee pain. Postop. TECHNIQUE: Three views. Weight bearing. Frontal, lateral, and patellar view. COMPARISON: 12/06/2016. FINDINGS: There is no fracture or dislocation. There is a small joint effusion. There is diffuse osteopenia. There is a total right knee arthroplasty which appears satisfactory. There is no lytic or blastic lesion. IMPRESSION: 1. Small joint effusion. 2. Diffuse osteopenia. 3. Total right knee arthroplasty. RPTAT: QQ .Obed Espinoza MD, MD Date Time Electronically viewed and signed by .Obed Espinoza MD, MD on 01/17/2017 17:08 .R/
== END | disposition home or self-care (01) ==
LOC: HKI 11:04
DX: Z47.1 Aftercare following joint replacement surgery (principal); Z96.651 Presence of right artificial knee joint

== ENCOUNTER → 2017-02-28 | Outpatient (CLI) | payer BC ==
--- NOTE | 2017-02-28 12:35 | PN ---
Date/Time of Note Date/Time of Note DATE: 02/28/17 TIME: 12:29 Outpatient Progress Note Chief Complaint Status post right total knee replacement HPI 56-year-old female presents today for follow-up status post right total knee replacement on 12/06/2016. Patient continues to improve in regards to range of motion as well as weightbearing but she does continue to experience pain. She states that on average, she takes about 1 tablet of [place] a day which helps. She is taking naproxen twice a day which also helps with inflammation. Patient has severe osteoporosis but denies any falls or injury since she was last seen. Use a single-point cane or front wheeled walker as needed for assisted ambulation. Presents today for follow-up. Review of Systems Const: No Fever, no chills, no Fatigue, normal appetite, no diaphoresis. Resp: No SOB, no wheezing, no chest pain. CV: No chest pain, no palpitaions, no MEZA. Physical Exam Blood pressure is 115/66, temperature is 98, pulse is 92, respiratory rate is 10, height is 5 foot 2 inches, weight is 100 pounds General Appearance: well-developed, well-nourished, in no acute distress. Right knee: Well-healed surgical scarring. Mild tenderness to palpation that is generalized throughout the knee. Patient is able to fully extend with flexion up to 110 with measurement using goniometer. Normal sensory examination to light touch. 4/5 strength. Noted fasciculations seen to the hamstrings and quadriceps with flexion and extension secondary to weakness. Assisted ambulation using single-point cane today. Negative Homans sign. Imaging: X-ray of the right knee performed on 02/28/2017 significant for severe osteopenia but prosthesis is intact and well attached to the bone. No signs of any acute injury or fracture. Allergies Coded Allergies: shrimp (Verified Allergy, Unknown, SOB,FACIAL SWELLING, 12/05/16) Assessment/Plan Problems: (1) Status post total right knee replacement -Patient was seen directly with Dr. Andrade today who recommends Dr. Gardiner [facility] for consult and treatment regarding severe osteoporosis. -Prescription for naproxen 550 mg 1 tab p.o. twice daily as well as [place] 5/325 mg 1 tab p.o. every 6-8 hours as needed severe pain #50 provided for patient today. -Prescription for physical therapy to the bilateral knee for improved strengthening, gait training, range of motion provided for patient today. -Patient will follow up in June 2016 for repeat evaluation and ongoing monitoring. -Dr. Andrade as discussed directly with patient today the significance of using front wheeled walker with range of motion and ambulation while upright and weightbearing due to significant osteoporosis which could leave patient predisposed to injury/fall. Patient states understanding and compliance. Antibiotic card provided for patient. Patient made aware that dental prophylaxis will be necessary prior to any dental procedure for the remainder of their lifetime. Patient is aware that they must contact their dentist prior to any procedure to inform them of previous joint replacement with prosthesis implant so appropriate antibiotic may be prescribed to lower risk of joint infection status post surgery. Card will also serve as confirmation should patient be traveling and have to go through security such as at an airport. Medications Home Meds No Active Prescriptions or Reported Meds ROSALVA PENA PA-C Feb 28, 2017 12:35
--- NOTE | 2017-02-28 13:25 | RADRPT ---
PROCEDURE: Right knee radiographs. CLINICAL INDICATION: Right knee pain. Postop. TECHNIQUE: Three views. Weight bearing. Frontal, lateral, and patellar view. COMPARISON: 01/17/2017. FINDINGS: There is no fracture or dislocation. There is a small joint effusion. There is diffuse osteopenia. There is a total right knee arthroplasty which appears satisfactory. There is no lytic or blastic lesion. IMPRESSION: 1. Small joint effusion. 2. Diffuse osteopenia. 3. Satisfactory postoperative appearance of the right knee. RPTAT: QQ .Obed Espinoza MD, MD Date Time Electronically viewed and signed by .Obed Espinoza MD, MD on 02/28/2017 13:25 .R/
== END | disposition home or self-care (01) ==
LOC: HKI 11:24
DX: Z09 Encounter for follow-up examination after completed treatment for conditions other than malignant neoplasm (principal); Z96.651 Presence of right artificial knee joint